=== PATIENT | male | born 1940 | race Caucasian/White ===

== ENCOUNTER 2016-07-23 19:06 | Emergency (ER) | payer OTHER ==
[~2016-07-23] VITALS: Ht 172.7 cm; Wt 77.3 kg
[~2016-07-23 19:06] MED LIST: FINA5TAB PO; TAMS0.4C59 PO
[2016-07-23 19:11] VITALS: TEMP 36.6; Ht 172.7 cm; Wt 77.3 kg
[2016-07-23] MEDS ORDERED: FLM4 PO (19:13)
[2016-07-23 20:06] LABS: URINE APPEARANCE CLEAR (CLEAR); URINE BILIRUBIN NEG (NEG); URINE COLOR YELLOW; URINE NITRITE NEG (NEG); UROBILINOGEN NEG (NEG); ZZUR CULT IF INDIC CLEAN CATCH NO
[2016-07-23 20:14] LABS: MANUAL MICROSCOPIC REQUIRED? NO; REVIEW REQ? NO
--- NOTE | 2016-07-23 20:34 | EMERGENCY ROOM VISIT NOTE ---
ED Visit Note First contact with patient: 19:25 This Patient was discussed with the physician Tensioning Machine Operator, Kennedy Sandoval PA-C. The pertinent historical and physical exam findings were confirmed. I agree with the studies ordered and with the interpretations of these studies. I agree with the disposition and care plan.
[2016-07-23 20:52] VITALS: BP 139/88; PULSE 74; O2SAT 96
[2016-07-23] MEDS ORDERED: LORA-741 PO (23:37)
--- NOTE | 2016-07-24 00:26 | EMERGENCY ROOM VISIT NOTE ---
History First contact with patient: 19:25 Chief Complaint: UNABLE TO VOID Stated Complaint: UNABLE TO VOID Nursing Triage Summary: Pt arrived to ER via BLS with complaints of trouble urinating since this AM. Pt reports he has not been able to void normally (steady stream) since this morning. Hx of prostate issues. Pt reports he has only been able to dribble occassionally throughout the day. History of Present Illness The patient is a 76 year old male who presents to the Emergency Room with complaints of inability to void normally. The patient reports that his was concerned and told him to come to the emergency department for further evaluation. He denies any discomfort while doing so. He does report a prior history of enlarged prostate. He does not know the name of his urologist. He has had no recent fevers or chills. He has not noticed any blood in the urine. 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 (10) Dyslipidemia (11) Generalized anxiety disorder (12) Generalized osteoarthritis (13) History of hemolytic anemia (14) History of TIA (transient ischemic attack) (15) Internal hemorrhoids (16) Myocardial infarction (17) Near syncope (18) Orthostasis (19) Polycythemia vera (20) Superficial vein thrombosis Surgical Problems: (1) H/O hernia repair (2) History of carpal tunnel surgery (3) Hx of cholecystectomy (4) S/P TURP Family History Cardiac arrest Heart disease Stroke Social History Smoking Status: Never Smoker Alcohol Use: none Drug Use: none Marital Status: Housing Status: lives with significant other Occupation Status: retired Current/Historical Medications Scheduled Finasteride (Proscar), 5 MG PO DAILY Tamsulosin HCl (Tamsulosin HCl), 0.4 MG PO DAILY Scheduled PRN Lorazepam (Ativan), 0.5 MG PO Q8 PRN for Anxiety Allergies Coded Allergies: Adhesives (Verified Allergy, Mild, PAPER TAPE-MARKED SKIN, 11/28/15) Dapsone (Verified Allergy, Unknown, methemoglobinemia, 11/28/15) Aspirin (Verified Adverse Reaction, Unknown, bleeding, 11/28/15) Warfarin (Verified Adverse Reaction, Unknown, bleeding, 11/28/15) Physical Exam Vital Signs Date Time Temp Pulse Resp B/P Pulse Ox O2 Delivery O2 Flow Rate FiO2 07/23/16 20:52 74 18 139/88 96 07/23/16 19:11 36.6 73 18 143/79 95 Room Air Pain Rating (0-10): 0 Physical Exam CONSTITUTIONAL: Healthy and well nourished. Alert and oriented X 3 with positive affect. Patient is not appear in any acute distress. HEENT: Normocephalic, atraumatic. Pupils equal, round and reactive. NECK: Full active range of motion without discomfort. RESPIRATORY: Clear to auscultation bilaterally with no wheezing, crackles, rhonchi or stridor. CARDIOVASCULAR: Regular rate and rhythm with no murmurs, rubs or gallops. GASTROINTESTINAL: Bowel sounds present in all quadrants. Soft and nontender to palpation. No distention noted over the suprapubic region. Negative CVA tenderness. MUSCULOSKELETAL: Full range of motion of all joints without discomfort. INTEGUMENTARY: No rash or other significant dermatologic conditions noted. NEUROLOGIC: No focal neurologic deficits noted. Medical Decision & Procedures ER Provider Diagnostic Interpretation: Bladder scan shows slightly better than 150 mL. The patient last urinated approximately 2 hours prior. Laboratory Results Test 07/23/16 19:49 Urine Color YELLOW Urine Appearance CLEAR (CLEAR) Urine pH 5.0 (4.5-7.5) Urine Specific [place] 1.020 (1.000-1.030) Urine Protein NEG (NEG) Urine Glucose (UA) NEG (NEG) Urine Ketones NEG (NEG) Urine Occult Blood NEG (NEG) Urine Nitrite NEG (NEG) Urine Bilirubin NEG (NEG) Urine Urobilinogen NEG (NEG) Urine Leukocyte Esterase NEG (NEG) Urinalysis is completely normal. ED Course Patient history and physical exam were performed. Nurse's notes were reviewed. The patient does not appear in any acute distress. Vital signs were also normal. The patient reports that he is here only because his made him come in. Bladder scan shows a volume of a little over 150 mL, with his last urination approximate 2 hours prior. The patient was asked to provide a urine sample. He was able to do so without any difficulty. His urinalysis was completely normal. The patient was encouraged to follow-up with his PCP or urologist with any further urinary problems. The patient was also seen and examined by Dr. Mast, DARYL at any physician, who agrees with workup and plan of care. The patient was also happy with plan of care, and voiced understanding of all discharge instructions. Impression Primary Impression: Urinary retention Additional Impression: BPH with obstruction/lower urinary tract symptoms Departure Information Dispostion Home / Self-Care Condition GOOD Forms HOME CARE DOCUMENTATION FORM, IMPORTANT VISIT INFORMATION Patient Instructions [facility] Additional Instructions Follow-up with your family doctor as needed for any further urinary symptoms. Return to the emergency department for any developing fever, vomiting or severe pain. Problem Qualifiers
== END 2016-07-23 20:53 | disposition home or self-care (01) ==
LOC: EDBD 19:06 → C.EDD 19:08
DX: R33.9 Retention of urine, unspecified (principal); N40.1 Benign prostatic hyperplasia with lower urinary tract symptoms; I48.91 Unspecified atrial fibrillation; J44.9 Chronic obstructive pulmonary disease, unspecified; Z86.73 Personal history of transient ischemic attack (TIA), and cerebral infarction without residual deficits; I25.2 Old myocardial infarction; Z90.49 Acquired absence of other specified parts of digestive tract

== ENCOUNTER 2016-07-31 10:53 | Emergency (ER) | payer OTHER ==
[~2016-07-31] VITALS: Ht 172.7 cm; Wt 91.0 kg
[~2016-07-31 10:53] MED LIST changes: +FLM4 PO; +LORA-741 PO; -TAMS0.4C59 PO
[2016-07-31 10:54] VITALS: TEMP 36.7; Ht 172.7 cm; Wt 91.0 kg
[2016-07-31] MEDS ORDERED: ONDANSETRON INJ 2 MG/ML 2 ML VIAL IV STA (12:09)
[2016-07-31] MEDS ORDERED: SODIUM CHLORIDE 0.9% 1000ML 1,000 ML IV STA (12:09)
[2016-07-31] MEDS ORDERED: HYDROmorphone INJ 1 MG/ML SYR IV STA (12:09)
--- NOTE | 2016-07-31 12:11 | EMERGENCY ROOM VISIT NOTE ---
History Report prepared by Bhupinder: James Rendon Under the Supervision of: Dr. Glory Whittaker M.D. First contact with patient: 12:05 Chief Complaint: ABDOMINAL PAIN Stated Complaint: EPIGASTRIC/ ABDOMINAL PAIN Nursing Triage Summary: Pt was laying on couch today and had a sudden onset of epigastric pain. Denies N/V/D. Does state, "It just feels like something needs to come up but it wont. " and points to chest. History of Present Illness The patient is a 76 year old male who presents to the Emergency Room with complaints of persistent abdominal pain beginning this morning. He notes also having a cough, chest pain, and shortness of breath. He denies having any nausea , vomiting, or diarrhea. Source of History: patient Onset: this morning Position: abdomen Quality: other (abdominal pain) Timing: other (persistent) Associated Symptoms: + SOB, + chest pain, + cough, No diarrhea, No nausea, No vomiting Review of Systems See HPI for pertinent positives & negatives. A total of 10 systems reviewed and were otherwise negative. 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 (4) Bullous pemphigoid (5) COPD (chronic obstructive pulmonary disease) (6) COPD, mild (7) Depression (8) Diarrhea (9) DJD (degenerative joint disease) of cervical spine (10) Dyslipidemia (11) Generalized anxiety disorder (12) Generalized osteoarthritis (13) History of hemolytic anemia (14) History of TIA (transient ischemic attack) (15) Internal hemorrhoids (16) Myocardial infarction (17) Near syncope (18) Orthostasis (19) Polycythemia vera (20) Superficial vein thrombosis Surgical Problems: (1) H/O hernia repair (2) History of carpal tunnel surgery (3) Hx of cholecystectomy (4) S/P TURP Family History Cardiac arrest Heart disease Stroke Social History Smoking Status: Never Smoker Alcohol Use: none Drug Use: none Marital Status: Housing Status: lives with significant other Occupation Status: retired Current/Historical Medications Scheduled Finasteride (Proscar), 5 MG PO DAILY Tamsulosin HCl (Tamsulosin HCl), 0.4 MG PO DAILY Scheduled PRN Lorazepam (Ativan), 0.5 MG PO Q8 PRN for Anxiety Allergies Coded Allergies: Adhesives (Verified Allergy, Mild, PAPER TAPE-MARKED SKIN, 07/31/16) Dapsone (Verified Allergy, Unknown, methemoglobinemia, 07/31/16) Aspirin (Verified Adverse Reaction, Unknown, bleeding, 07/31/16) Warfarin (Verified Adverse Reaction, Unknown, bleeding, 07/31/16) Physical Exam Vital Signs Date Time Temp Pulse Resp B/P Pulse Ox O2 Delivery O2 Flow Rate FiO2 07/31/16 16:48 95 18 118/83 97 07/31/16 16:09 84 18 119/74 95 Room Air 07/31/16 13:16 100 18 110/85 96 Room Air 07/31/16 11:01 104 07/31/16 10:54 36.7 100 20 133/81 94 Room Air Physical Exam CONSTITUTIONAL: Hearing impaired. Patient is in mild distress. HEENT: No icterus, moist mucous membranes NECK: No meningismus, trachea is midline. CARDIOVASCULAR: Regular rate, normal perfusion RESPIRATORY: Unlabored breathing. Clear to auscultation. GASTROINTESTINAL: Non-tender GENITOURINARY: No flank tenderness MUSCULOSKELETAL: Full range of motion NEUROLOGIC: No acute gross focal deficits. PSYCHIATRIC: Normal affect SKIN: Normal for ethnicity. Medical Decision & Procedures ER Provider Diagnostic Interpretation: Radiology results as stated below per my review and radiologist interpretation. CHEST 2 VIEWS ROUTINE FINDINGS: The heart is the upper limits of normal in size. There is no failure. There is no focal pulmonary consolidation. There are no pleural effusions. There is an old right-sided rib fracture. IMPRESSION: No active disease in the chest. Electronically signed by: Yannick Rodriguez M.D. 07/31/2016 12:42 PM Dictated Date/Time: 07/31/2016 12:41 PM Laboratory Results 07/31/16 10:30 Red Blood Count 7.66, Mean Corpuscular Volume 71.1, Mean Corpuscular Hemoglobin 22.8, Mean Corpuscular Hemoglobin Concent 32.1, Neutrophils (%) (Auto) 79.2, Lymphocytes (%) (Auto) 8.8, Monocytes (%) (Auto) 9.2, Eosinophils (%) (Auto) 1.6 , Basophils (%) (Auto) 0.8, Neutrophils # (Auto) 8.57, Lymphocytes # (Auto) 0.95 , Monocytes # (Auto) 1.00, Eosinophils # (Auto) 0.17, Basophils # (Auto) 0.09 07/31/16 10:30 Test 07/31/16 10:30 07/31/16 12:40 07/31/16 12:43 07/31/16 13:14 White Blood Count 10.82 K/uL (4.8-10.8) Red Blood Count 7.66 M/uL (4.7-6.1) Hemoglobin 17.5 g/dL (14.0-18.0) Hematocrit 54.5 % (42-52) Mean Corpuscular Volume 71.1 fL (80-100) Mean Corpuscular Hemoglobin 22.8 pg (25-34) Mean Corpuscular Hemoglobin Concent 32.1 g/dl (32-36) Platelet Count 258 K/uL (130-400) Neutrophils (%) (Auto) 79.2 % Lymphocytes (%) (Auto) 8.8 % Monocytes (%) (Auto) 9.2 % Eosinophils (%) (Auto) 1.6 % Basophils (%) (Auto) 0.8 % Neutrophils # (Auto) 8.57 K/uL (1.4-6.5) Lymphocytes # (Auto) 0.95 K/uL (1.2-3.4) Monocytes # (Auto) 1.00 K/uL (0.11-0.59) Eosinophils # (Auto) 0.17 K/uL (0-0.5) Basophils # (Auto) 0.09 K/uL (0-0.2) RDW Standard Deviation 47.9 fL (36.4-46.3) RDW Coefficient of Variation 19.6 % (11.5-14.5) Immature Granulocyte % (Auto) 0.4 % Immature Granulocyte # (Auto) 0.04 K/uL (0.00-0.02) Anion Gap 10.0 mmol/L (3-11) Est Creatinine Clear Calc Drug Dose 52.1 ml/min Estimated GFR () 61.0 Estimated GFR (Non- 52.6 BUN/Creatinine Ratio 12.0 (10-20) Calcium Level 8.8 mg/dl (8.5-10.1) Total Bilirubin 0.7 mg/dl (0.2-1) Direct Bilirubin 0.2 mg/dl (0-0.2) Aspartate Amino Transf (AST/SGOT) 18 U/L (15-37) Alanine Aminotransferase (ALT/SGPT) 25 U/L (12-78) Alkaline Phosphatase 75 U/L (45-117) Troponin I < 0.015 ng/ml (0-0.045) Total Protein 7.2 gm/dl (6.4-8.2) Albumin 3.7 gm/dl (3.4-5.0) Lipase 160 U/L (73-393) Thyroid Stimulating Hormone (TSH) 1.580 uIu/ml (0.300-4.500) Chemistry Specimen Hemolysis Ethyl Alcohol mg/dL < 3.0 mg/dl (0-3) Bedside Lactic Acid Venous 0.83 mmol/L (0.90-1.70) Urine Color YELLOW Urine Appearance CLEAR (CLEAR) Urine pH 5.0 (4.5-7.5) Urine Specific [place] 1.018 (1.000-1.030) Urine Protein NEG (NEG) Urine Glucose (UA) NEG (NEG) Urine Ketones NEG (NEG) Urine Occult Blood TRACE (NEG) Urine Nitrite NEG (NEG) Urine Bilirubin NEG (NEG) Urine Urobilinogen NEG (NEG) Urine Leukocyte Esterase NEG (NEG) Urine WBC (Auto) 1-5 /hpf (0-5) Urine RBC (Auto) 0-4 /hpf (0-4) Urine Hyaline Casts (Auto) 1-5 /lpf (0-5) Urine Epithelial Cells (Auto) 5-10 /lpf (0-5) Urine Bacteria (Auto) NEG (NEG) Urine Opiates Screen NEG (NEG) Urine Methadone, Qualitative NEG (NEG) Urine Barbiturates NEG (NEG) Urine Phencyclidine (PCP) Level NEG (NEG) Ur Amphetamine/Methamphetamine NEG (NEG) MDMA (Ecstasy) Screen NEG (NEG) Urine Benzodiazepines Screen NEG (NEG) Urine Cocaine Metabolite NEG (NEG) Urine Marijuana (THC) NEG (NEG) Labs reviewed by ED physician. Medications Administered Medications (Trade) Dose Ordered Sig/Linette Route Start Time Stop Time Status Last Admin Dose Admin Ondansetron HCl 4 mg 4 mg NOW STAT IV 07/31/16 12:09 07/31/16 12:11 DC 07/31/16 13:11 4 MG Sodium Chloride (Nss 1000ml) 1,000 ml @ 0 mls/hr Q0M STAT IV 07/31/16 12:09 07/31/16 12:11 DC 07/31/16 13:12 999 MLS/HR Hydromorphone HCl (Dilaudid Inj) 1 mg PRN STAT IV 07/31/16 12:09 07/31/16 12:11 DC 07/31/16 13:11 1 MG ECG Indication: abdominal pain Rate (beats per minute): 90 Rhythm: atrial fibrillation Findings: nonspecific-ST abn, other (normal ) ED Course 1208: Past medical records reviewed. The patient was evaluated in room C2B. A complete history and physical examination was performed. 1209: Ordered Dilaudid Inj 1 mg IV, NSS 1,000 ml @ 0 mls/hr Wide Open IV, and Zofran Inj 4 mg IV. Medical Decision Differentials include pneumonia, diverticulitis, and obstruction. 76-year-old who is hearing impaired presented to the emergency department with 1 day of vague abdominal pain as well as cough. Mildly diffuse abdomen. Patient appeared generally well and no emergencies were identified during the ED course. Impression Primary Impression: Abdominal pain Scribe Attestation The scribe's documentation has been prepared under my direction and personally reviewed by me in its entirety. I confirm that the note above accurately reflects all work, treatment, procedures, and medical decision making performed by me. Departure Information Dispostion Home / Self-Care Referrals Ajith Herman D.O. (PCP) Patient Instructions My [facility]
[2016-07-31] MEDS ORDERED: OPTIRAY 320 IV PRN (12:15)
[2016-07-31 12:21] LABS: BASO % 0.8 %; BASO ABS # 0.09 K/uL (0-0.2); COMPLETE YES; EOS % 1.6 %; HEMATOCRIT 54.5 % (42-52); IG% 0.4 %; LYMPH % 8.8 %; LYMPH ABS # 0.95 K/uL (1.2-3.4); MEAN CELL VOLUME 71.1 fL (80-100); MEAN CORPUSCULAR HEMOGLOBIN 22.8 pg (25-34); MEAN CORPUSCULAR HGB CONC 32.1 g/dl (32-36); MONO % 9.2 %; NEUT % 79.2 %; PLATELET COUNT 258 K/uL (130-400); RED BLOOD COUNT 7.66 M/uL (4.7-6.1); WHITE BLOOD COUNT 10.82 K/uL (4.8-10.8)
[2016-07-31 12:34] LABS: ALT/SGPT 25 U/L (12-78); AST/SGOT 18 U/L (15-37); BLOOD UREA NITROGEN 16 mg/dl (7-18); CALCIUM 8.8 mg/dl (8.5-10.1); CARBON DIOXIDE 24 mmol/L (21-32); CHLORIDE 108 mmol/L (98-107); GLUCOSE 99 mg/dl (70-99); POTASSIUM 3.9 mmol/L (3.5-5.1); SODIUM 142 mmol/L (136-145)
--- NOTE | 2016-07-31 12:43 | DIAGNOSTIC IMAGING REPORT ---
CHEST 2 VIEWS ROUTINE CLINICAL HISTORY: Cough abdominal pain COMPARISON STUDY: 06/17/2016 FINDINGS: The heart is the upper limits of normal in size. There is no failure. There is no focal pulmonary consolidation. There are no pleural effusions. There is an old right-sided rib fracture.[ IMPRESSION: No active disease in the chest. Electronically signed by: Yannick Rodriguez M.D. 07/31/2016 12:42 PM Dictated Date/Time: 07/31/2016 12:41 PM
[2016-07-31 12:46] LABS: ALKALINE PHOSPHATASE 75 U/L (45-117)
[2016-07-31 13:45] LABS: URINE APPEARANCE CLEAR (CLEAR); URINE BILIRUBIN NEG (NEG); URINE COLOR YELLOW; URINE NITRITE NEG (NEG); URINE SPECIFIC GRAVITY 1.018 (1.000-1.030); UROBILINOGEN NEG (NEG); ZZUR CULT IF INDIC CLEAN CATCH NO
[2016-07-31 13:49] LABS: MANUAL MICROSCOPIC REQUIRED? NO; REVIEW REQ? NO
[2016-07-31 14:28] LABS: BENZODIAZEPINE, URINE NEG (NEG); COCAINE,URINE NEG (NEG); PHENCYCLIDINE, URINE NEG (NEG)
--- NOTE | 2016-07-31 15:14 | DIAGNOSTIC IMAGING REPORT ---
CT ABD/PELVIS IV AND ORAL CONT CLINICAL HISTORY: Generalized abdominal pain COMPARISON STUDY: 10/03/2015 TECHNIQUE: Following the IV administration of 94 mL of Optiray-320, CT scan of the abdomen and pelvis was performed from the lung bases to the proximal femurs. Images are reviewed in the axial, sagittal, and coronal planes. IV contrast was administered without complication. CT DOSE: 952.20 mGycm FINDINGS: Lower chest: There are bibasal atelectatic changes present. There is borderline distal esophageal wall thickening unchanged the prior study. Liver: There is a stable 8 mm hypodensity immediately beneath the hepatic dome. There is a stable 11 mm cyst within the lateral segment left hepatic lobe. There is a 9 mm subcapsular hypodensity within the medial segment the left lobe. There are a few additional tiny to small to characterize hepatic hypodensities likely representing cysts. Gallbladder: Surgically absent Spleen: Normal in size and attenuation. Pancreas: Unremarkable. Adrenal glands: Unremarkable. Kidneys: There is a stable 11 mm upper pole left renal cyst. There is a stable 15 mm hypodensity within the lower pole the left kidney. This slightly exceeds water attenuation and is therefore indeterminate. Bowel: There are no transition zones indicate bowel obstruction. There is no evidence of acute diverticulitis. There are scattered colonic diverticula present. The appendix is normal in appearance. Peritoneum: There is no intraperitoneal free air or abdominal ascites. Vasculature: The abdominal aorta is normal in course and caliber. Adenopathy: None. Pelvic viscera: The prostate remains significantly enlarged measuring 7 cm in AP dimension. Skeletal structures: No destructive osseous lesions are seen. IMPRESSION: 1. Stable hepatic hypodensities likely representing cysts 2. Stable indeterminate 15 mm lower pole left renal hypodensity 3. No evidence of bowel obstruction. No evidence of free air 4. Normal appendix 5. Diverticulosis. No evidence of acute diverticulitis 6. Prostatic enlargement 7. Stable distal esophageal wall thickening Electronically signed by: Yannick Rodriguez M.D. 07/31/2016 3:13 PM Dictated Date/Time: 07/31/2016 3:07 PM
[2016-07-31 16:48] VITALS: BP 118/83; PULSE 95; O2SAT 97
== END 2016-07-31 16:49 | disposition home or self-care (01) ==
LOC: EDBD 10:53 → C.EDC 10:54
DX: R10.9 Unspecified abdominal pain (principal); I48.91 Unspecified atrial fibrillation; J44.9 Chronic obstructive pulmonary disease, unspecified; F32.9 Major depressive disorder, single episode, unspecified; E78.5 Hyperlipidemia, unspecified; Z86.73 Personal history of transient ischemic attack (TIA), and cerebral infarction without residual deficits; I25.2 Old myocardial infarction; Z90.49 Acquired absence of other specified parts of digestive tract

== ENCOUNTER 2016-08-10 19:06 | Emergency (ER) | payer OTHER ==
[~2016-08-10] VITALS: Ht 172.7 cm; Wt 87.9 kg
[2016-08-10 19:18] VITALS: TEMP 36.7; Ht 172.7 cm; Wt 87.9 kg
[2016-08-10] MEDS ORDERED: ONDANSETRON INJ 2 MG/ML 2 ML VIAL IV STA (19:29)
[2016-08-10] MEDS ORDERED: HYOSCYAMINE SULFATE 0.125 MG SL TAB SL STA (19:29)
[2016-08-10 19:36] LABS: BASO % 0.6 %; BASO ABS # 0.06 K/uL (0-0.2); EOS % 1.1 %; HEMATOCRIT 54.1 % (42-52); IG% 0.3 %; LYMPH % 15.7 %; MEAN CELL VOLUME 68.9 fL (80-100); MEAN CORPUSCULAR HEMOGLOBIN 22.7 pg (25-34); MEAN CORPUSCULAR HGB CONC 32.9 g/dl (32-36); MONO % 7.7 %; NEUT % 74.6 %; PLATELET COUNT 250 K/uL (130-400); RED BLOOD COUNT 7.85 M/uL (4.7-6.1); WHITE BLOOD COUNT 10.84 K/uL (4.8-10.8)
[2016-08-10] MEDS ORDERED: OPTIRAY 320 IV PRN (19:45)
[2016-08-10 19:56] LABS: BUN/CREATININE RATIO 18.6 (10-20); CALCIUM 9.2 mg/dl (8.5-10.1); CREATININE 1.3 mg/dl (0.60-1.40); POTASSIUM 4.3 mmol/L (3.5-5.1)
[2016-08-10] MEDS ORDERED: SODIUM CHLORIDE 0.9% 250ML 250 ML IV STA (20:04)
[2016-08-10] MEDS ORDERED: DOXY100C2 PO (20:46)
[2016-08-10 21:27] LABS: COMPLETE YES; MICROCYTOSIS PRESENT; OVALOCYTES 1+; POLYCHROMASIA 1+
--- NOTE | 2016-08-10 22:33 | DIAGNOSTIC IMAGING REPORT ---
ABDOMEN AND PELVIS CT WITH IV AND ORAL CONTRAST CT DOSE: 613.89 mGy.cm HISTORY: Pain eval for kristie/ lower abd pain TECHNIQUE: Multiaxial CT images of the abdomen and pelvis were performed following the use of intravenous and oral contrast. COMPARISON STUDY: 07/31/2016 FINDINGS: Lung bases are clear. Mild distal esophageal wall thickening unchanged. Several small hepatic cysts unchanged. Upper pole left renal cyst unchanged. No evidence for renal hydronephrosis. Spleen is uniform in appearance as is the pancreas. Prior cholecystectomy. Normal appendix. Nonobstructive bowel pattern. Mildly thickened sigmoid colonic wall raise the possibly of a low-grade colitis. No evidence for significant pericolonic infiltrative change. No evidence for abscess collection or obstruction. Bladder is midline. Prostate is enlarged. IMPRESSION: 1. Nonobstructive bowel pattern. 2. Normal appendix. 3. Subtle wall thickening of the sigmoid colon raising the possibility of a mild colitis. 4. No evidence for abscess collection or obstruction. 5. Prostatic enlargement. 6. Unchanged small hepatic as well as renal cysts. Electronically signed by: Boom Verduzco M.D. 08/10/2016 10:32 PM Dictated Date/Time: 08/10/2016 10:25 PM
[2016-08-10] MEDS ORDERED: CIPR-255 PO (22:38)
[2016-08-10] MEDS ORDERED: METR-163 PO (22:38)
[2016-08-10] MEDS ORDERED: CIPROFLOXACIN 500 MG TAB PO STA (22:40)
[2016-08-10] MEDS ORDERED: METRONIDAZOLE 250 MG TAB PO STA (22:40)
[2016-08-10 22:48] VITALS: BP 153/94; PULSE 84; O2SAT 95
--- NOTE | 2016-08-11 01:55 | EMERGENCY ROOM VISIT NOTE ---
History Report prepared by Bhupinder: Kate Mcdaniels Under the Supervision of: Dr. Eduard Wilkerson M.D. First contact with patient: 19:21 Chief Complaint: ABDOMINAL PAIN Stated Complaint: ABD PAIN History of Present Illness The patient is a 76 year old male who presents to the Emergency Room with complaints of constant sharp lower abdominal pain beginning this morning. The patient states that he ate a cake that didn't taste right and starting feeling the abdominal pain shortly after. He reports that this abdominal pain is different than the pain he had when he was seen here in the ED 10 days ago, although he cannot remember exactly. He complains of 1 episode of diarrhea which was very watery. The patient denies any fever, vomiting, blood in the diarrhea, urinary symptoms, chest pain, or shortness of breath. Source of History: patient Onset: today Position: abdomen Quality: sharp Timing: constant Associated Symptoms: + diarrhea, No SOB, No chest pain, No fevers, No urinary symptoms, No vomiting Note: The patient denies any blood in the diarrhea. Review of Systems See HPI for pertinent positives & negatives. A total of 10 systems reviewed and were otherwise negative. 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 (4) Bullous pemphigoid (5) COPD (chronic obstructive pulmonary disease) (6) COPD, mild (7) Depression (8) Diarrhea (9) DJD (degenerative joint disease) of cervical spine (10) Dyslipidemia (11) Generalized anxiety disorder (12) Generalized osteoarthritis (13) History of hemolytic anemia (14) History of TIA (transient ischemic attack) (15) Internal hemorrhoids (16) Myocardial infarction (17) Near syncope (18) Orthostasis (19) Polycythemia vera (20) Superficial vein thrombosis Surgical Problems: (1) H/O hernia repair (2) History of carpal tunnel surgery (3) Hx of cholecystectomy (4) S/P TURP Family History Cardiac arrest Heart disease Stroke Social History Smoking Status: Never Smoker Alcohol Use: none Drug Use: none Marital Status: Housing Status: lives with significant other Occupation Status: retired Current/Historical Medications Scheduled Ciprofloxacin Hcl (Cipro), 500 MG PO BID Doxycycline Hyclate (Vibramycin), 100 MG PO BID Finasteride (Proscar), 5 MG PO DAILY Metronidazole (Flagyl), 500 MG PO TID Tamsulosin HCl (Tamsulosin HCl), 0.4 MG PO DAILY Scheduled PRN Lorazepam (Ativan), 0.5 MG PO Q8 PRN for Anxiety Allergies Coded Allergies: Adhesives (Verified Allergy, Mild, PAPER TAPE-MARKED SKIN, 08/10/16) Dapsone (Verified Allergy, Unknown, methemoglobinemia, 08/10/16) Aspirin (Verified Adverse Reaction, Unknown, bleeding, 08/10/16) Warfarin (Verified Adverse Reaction, Unknown, bleeding, 08/10/16) Physical Exam Vital Signs Date Time Temp Pulse Resp B/P Pulse Ox O2 Delivery O2 Flow Rate FiO2 08/10/16 22:48 84 18 153/94 95 08/10/16 21:48 75 18 150/90 94 Room Air 08/10/16 20:30 74 18 154/71 96 Room Air 08/10/16 19:18 77 08/10/16 19:18 36.7 81 18 140/111 94 Room Air Physical Exam Constitutional: Vital signs reviewed. Eyes: Pupils are equal round reactive to light. Conjunctiva are noninjected. ENT: Pharynx is clear without erythema or exudate. Mucous membranes are moist. Neck supple without meningeal signs. Respiratory: Clear to auscultation bilaterally. Breath sounds are equal bilaterally. Cardiovascular: Regular rate and rhythm. No rubs or gallops. GI: Soft, nondistended. Bowel sounds are present. Lower abdominal tenderness, no guarding. Musculoskeletal: No peripheral edema. No lower extremity tenderness. No CVA tenderness. Integumentary: No cyanosis. Neurological: The patient is awake and alert. No focal deficits. Psychiatric: Normal affect. Medical Decision & Procedures ER Provider Diagnostic Interpretation: CT results as stated below per my review and the radiologist's interpretation: ABDOMEN AND PELVIS CT WITH IV AND ORAL CONTRAST FINDINGS: Lung bases are clear. Mild distal esophageal wall thickening unchanged. Several small hepatic cysts unchanged. Upper pole left renal cyst unchanged. No evidence for renal hydronephrosis. Spleen is uniform in appearance as is the pancreas. Prior cholecystectomy. Normal appendix. Nonobstructive bowel pattern. Mildly thickened sigmoid colonic wall raise the possibly of a low-grade colitis. No evidence for significant pericolonic infiltrative change. No evidence for abscess collection or obstruction. Bladder is midline. Prostate is enlarged. IMPRESSION: 1. Nonobstructive bowel pattern. 2. Normal appendix. 3. Subtle wall thickening of the sigmoid colon raising the possibility of a mild colitis. 4. No evidence for abscess collection or obstruction. 5. Prostatic enlargement. 6. Unchanged small hepatic as well as renal cysts. Electronically signed by: Boom Verduzco M.D. 08/10/2016 10:32 PM Dictated Date/Time: 08/10/2016 10:25 PM Laboratory Results 08/10/16 19:25 Red Blood Count 7.85, Mean Corpuscular Volume 68.9, Mean Corpuscular Hemoglobin 22.7, Mean Corpuscular Hemoglobin Concent 32.9, Neutrophils (%) (Auto) 74.6, Lymphocytes (%) (Auto) 15.7, Monocytes (%) (Auto) 7.7, Eosinophils (%) (Auto) 1.1, Basophils (%) (Auto) 0.6, Neutrophils # (Auto) 8.10, Lymphocytes # (Auto) 1.70, Monocytes # (Auto) 0.83, Eosinophils # (Auto) 0.12, Basophils # (Auto) 0.06 08/10/16 19:25 Test 08/10/16 19:25 08/10/16 19:53 White Blood Count 10.84 K/uL (4.8-10.8) Red Blood Count 7.85 M/uL (4.7-6.1) Hemoglobin 17.8 g/dL (14.0-18.0) Hematocrit 54.1 % (42-52) Mean Corpuscular Volume 68.9 fL (80-100) Mean Corpuscular Hemoglobin 22.7 pg (25-34) Mean Corpuscular Hemoglobin Concent 32.9 g/dl (32-36) Platelet Count 250 K/uL (130-400) Neutrophils (%) (Auto) 74.6 % Lymphocytes (%) (Auto) 15.7 % Monocytes (%) (Auto) 7.7 % Eosinophils (%) (Auto) 1.1 % Basophils (%) (Auto) 0.6 % Neutrophils # (Auto) 8.10 K/uL (1.4-6.5) Lymphocytes # (Auto) 1.70 K/uL (1.2-3.4) Monocytes # (Auto) 0.83 K/uL (0.11-0.59) Eosinophils # (Auto) 0.12 K/uL (0-0.5) Basophils # (Auto) 0.06 K/uL (0-0.2) RDW Standard Deviation 45.7 fL (36.4-46.3) RDW Coefficient of Variation 18.9 % (11.5-14.5) Immature Granulocyte % (Auto) 0.3 % Immature Granulocyte # (Auto) 0.03 K/uL (0.00-0.02) Polychromasia 1+ Microcytosis PRESENT Ovalocytes 1+ Anion Gap 12.0 mmol/L (3-11) Est Creatinine Clear Calc Drug Dose 51.3 ml/min Estimated GFR () 61.0 Estimated GFR (Non- 52.6 BUN/Creatinine Ratio 18.6 (10-20) Calcium Level 9.2 mg/dl (8.5-10.1) Total Bilirubin 1.0 mg/dl (0.2-1) Direct Bilirubin 0.2 mg/dl (0-0.2) Aspartate Amino Transf (AST/SGOT) 21 U/L (15-37) Alanine Aminotransferase (ALT/SGPT) 27 U/L (12-78) Alkaline Phosphatase 62 U/L (45-117) Total Protein 7.6 gm/dl (6.4-8.2) Albumin 4.0 gm/dl (3.4-5.0) Lipase 156 U/L (73-393) Lactic Acid Level 0.8 mmol/L (0.4-2.0) Laboratory results as reviewed by me. Medications Administered Medications (Trade) Dose Ordered Sig/Lintete Route Start Time Stop Time Status Last Admin Dose Admin Ondansetron HCl (Zofran Inj) 4 mg NOW STAT IV 08/10/16 19:29 08/10/16 19:31 DC 08/10/16 19:40 4 MG Hyoscyamine Sulfate 0.125 mg 0.125 mg NOW STAT SL 08/10/16 19:29 08/10/16 19:31 DC 08/10/16 19:40 0.125 MG Sodium Chloride (Nss 250ml) 250 ml @ 999 mls/hr Q16M STAT IV 08/10/16 20:04 08/10/16 20:19 DC 08/10/16 21:46 999 MLS/HR Metronidazole (Flagyl Tab) 500 mg NOW STAT PO 08/10/16 22:40 08/10/16 22:41 DC 08/10/16 22:44 500 MG Ciprofloxacin (Cipro Tab) 500 mg NOW STAT PO 08/10/16 22:40 08/10/16 22:41 DC 08/10/16 22:44 500 MG ED Course 1923: The patient was evaluated in room C11B. A complete history and physical exam was performed. 1928: Levsin Tab 0.125mg SL, Zofran Inj 4mg IV. 2003: Sodium Chloride 250 ml @ 999 mls/hr IV. 2204: I reevaluated the patient. He has had several episodes of diarrhea here. He just soiled his pants. He would not go to CT scan and will not answer any of my questions. 2233: I discussed the test results with the patient. 2239: Cipro Tab 500mg PO, Flagyl Tab 500mg PO. 2306: Upon reevaluation, the patient appeared to have improvement of his symptoms. I discussed tonight's findings with the patient. He verbalized agreement of the treatment plan. The patient was discharged home. Medical Decision This is a 76-year-old male who presents with lower abdominal pain and diarrhea. Differential diagnosis in this foodborne illness, C. difficile infection, colitis, diverticulitis, appendicitis, dehydration. I did perform a limited focused review of portions of the patient's old chart on the electronic medical record. The patient was seen here 10 days ago for epigastric abdominal pain. He had a workup here and was diagnosed with abdominal pain. He had a CT of the abdomen and pelvis which showed no acute process. I did evaluate the patient as noted above. He has mild diffuse tenderness to lower abdomen and started having diarrhea today. He does state that he thinks he ate something that made him sick. Throughout his emergency department stay he did have several episodes of diarrhea. He was, however, unable to give us a stool sample to check for C. difficile. IV access was established. He was treated with Zofran IV and Levsin. I did order and review the patient's blood work as noted in the electronic medical record. His white blood cell count is slightly elevated. I did order a CT of the abdomen and pelvis. I did review the images myself as well as the radiology report as described above. He does have signs of mild colitis. I did discuss the test results with the patient. He was treated with Cipro and Flagyl and discharged with a prescription for Cipro and Flagyl. He was advised to follow closely with his doctor for reevaluation. He was given precautions regarding these medications. Impression Primary Impression: Colitis Scribe Attestation The scribe's documentation has been prepared under my direct and personally reviewed by me in its entirety. I confirm that the note above accurately reflects all work, treatment, procedures, and medical decision making performed by me. Departure Information Dispostion Home / Self-Care Prescriptions Metronidazole (Flagyl) 500 Mg Tab 500 MG PO TID for 10 Days, #30 TAB Prov: Eduard Wilkerson M.D. 08/10/16 Ciprofloxacin Hcl (CIPRO) 500 Mg Tab 500 MG PO BID, #20 TAB Prov: Eduard Wilkerson M.D. 08/10/16 Referrals Ajith Herman D.O. (PCP) Forms HOME CARE DOCUMENTATION FORM, IMPORTANT VISIT INFORMATION Patient Instructions My [facility] Additional Instructions You have been examined and treated today on an emergency basis only. This is not a substitute for, or an effort to provide, complete comprehensive medical care. It is impossible to recognize and treat all injuries or illnesses in a single emergency department visit. It is therefore important that you follow up closely with your physician. Call as soon as possible for an appointment. Return for worsening symptoms or if you develop fever, vomiting, or any other concerning symptoms. Do not drink alcohol with the antibiotics or you will become violently ill.
== END 2016-08-10 22:48 | disposition home or self-care (01) ==
LOC: EDBD 19:06 → C.EDC 19:08
DX: K52.9 Noninfective gastroenteritis and colitis, unspecified (principal); I48.91 Unspecified atrial fibrillation; J44.9 Chronic obstructive pulmonary disease, unspecified; F32.9 Major depressive disorder, single episode, unspecified; E78.5 Hyperlipidemia, unspecified; F41.1 Generalized anxiety disorder; M19.90 Unspecified osteoarthritis, unspecified site; Z86.73 Personal history of transient ischemic attack (TIA), and cerebral infarction without residual deficits; I25.2 Old myocardial infarction; D45 Polycythemia vera; Z90.49 Acquired absence of other specified parts of digestive tract; Z82.3 Family history of stroke; Z79.899 Other long term (current) drug therapy

== ENCOUNTER 2016-08-11 17:55 | Emergency (ER) | payer OTHER ==
[~2016-08-11] VITALS: Ht 172.7 cm; Wt 89.3 kg
[~2016-08-11 17:55] MED LIST changes: +CIPR-255 PO; +DOXY100C2 PO; +METR-163 PO
[2016-08-11 18:01] VITALS: TEMP 36.7; Ht 172.7 cm; Wt 89.3 kg
[2016-08-11] MEDS ORDERED: KETOROLAC TROMETHAMINE 30 MG/ML VIAL IV STA (18:26)
[2016-08-11] MEDS ORDERED: ONDANSETRON INJ 2 MG/ML 2 ML VIAL IV STA (18:26)
[2016-08-11] MEDS ORDERED: MoRPHine SULFATE 4 MG/ML 1 ML CARP\\VIAL IV PRN (18:30)
--- NOTE | 2016-08-11 18:31 | EMERGENCY ROOM VISIT NOTE ---
History Report prepared by Bhupinder: Brad Miranda Under the Supervision of: Dr. Glory Whittaker M.D. First contact with patient: 18:19 Chief Complaint: ABDOMINAL PAIN Stated Complaint: ABD PAIN History of Present Illness The patient is a 76 year old male who presents to the Emergency Room with complaints of constant abdominal pain beginning several hours prior to arrival. He currently rates his discomfort as an 8/10 in severity. The patient associates diarrhea and decreased appetite with today's symptoms. He states he may have had surgery for an abdominal hernia in the past. Source of History: patient Onset: several hours [employer] Position: abdomen Symptom Intensity: 8/10 Timing: constant Associated Symptoms: + abdominal pain, + diarrhea Note: Associated symptoms: decreased appetite. Review of Systems See HPI for pertinent positives & negatives. A total of 10 systems reviewed and were otherwise negative. 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 (4) Bullous pemphigoid (5) COPD (chronic obstructive pulmonary disease) (6) COPD, mild (7) Depression (8) Diarrhea (9) DJD (degenerative joint disease) of cervical spine (10) Dyslipidemia (11) Generalized anxiety disorder (12) Generalized osteoarthritis (13) History of hemolytic anemia (14) History of TIA (transient ischemic attack) (15) Internal hemorrhoids (16) Myocardial infarction (17) Near syncope (18) Orthostasis (19) Polycythemia vera (20) Superficial vein thrombosis Surgical Problems: (1) H/O hernia repair (2) History of carpal tunnel surgery (3) Hx of cholecystectomy (4) S/P TURP Family History Cardiac arrest Heart disease Stroke Social History Smoking Status: Never Smoker Alcohol Use: none Drug Use: none Marital Status: Housing Status: lives with significant other Occupation Status: retired Current/Historical Medications Scheduled Ciprofloxacin Hcl (Cipro), 500 MG PO BID Doxycycline Hyclate (Vibramycin), 100 MG PO BID Finasteride (Proscar), 5 MG PO DAILY Metronidazole (Flagyl), 500 MG PO TID Tamsulosin HCl (Tamsulosin HCl), 0.4 MG PO DAILY Scheduled PRN Lorazepam (Ativan), 0.5 MG PO Q8 PRN for Anxiety Allergies Coded Allergies: Adhesives (Verified Allergy, Mild, PAPER TAPE-MARKED SKIN, 08/11/16) Dapsone (Verified Allergy, Unknown, methemoglobinemia, 08/11/16) Aspirin (Verified Adverse Reaction, Unknown, bleeding, 08/11/16) Warfarin (Verified Adverse Reaction, Unknown, bleeding, 08/11/16) Physical Exam Vital Signs Date Time Temp Pulse Resp B/P Pulse Ox O2 Delivery O2 Flow Rate FiO2 08/11/16 20:16 83 20 116/66 96 Room Air 08/11/16 18:01 36.7 82 18 153/94 94 Room Air Physical Exam CONSTITUTIONAL: Mild distress. HEENT: No icterus, moist mucous membranes NECK: No meningismus, trachea is midline. CARDIOVASCULAR: Regular rate, normal perfusion RESPIRATORY: Unlabored breathing. Clear to auscultation. GASTROINTESTINAL: Mild diffuse abdominal tenderness. GENITOURINARY: No flank tenderness MUSCULOSKELETAL: Full range of motion NEUROLOGIC: No acute gross focal deficits. PSYCHIATRIC: Normal affect SKIN: Normal for ethnicity. Medical Decision & Procedures ER Provider Diagnostic Interpretation: Radiology results as stated below per my review and radiologist interpretation. CHEST ONE VIEW PORTABLE HISTORY: Generalized abdominal pain. COMPARISON: Chest 07/31/2016. FINDINGS: Low lung volumes. Linear density left lung base persist and favor subsegmental atelectasis. The heart remains mildly enlarged. No pleural effusions. No pneumothorax. No new focal lung consolidations to suggest pneumonia. No evidence for pulmonary edema. Old, healed right-sided rib fractures. Slight elevation of the left hemidiaphragm which may be positional. IMPRESSION: No significant change compared to the prior study. No acute process. Electronically signed by: Dipesh Milner M.D. 08/11/2016 7:22 PM Laboratory Results 08/11/16 18:35 Red Blood Count 7.67, Mean Corpuscular Volume 70.9, Mean Corpuscular Hemoglobin 23.2, Mean Corpuscular Hemoglobin Concent 32.7, Neutrophils (%) (Auto) 78.5, Lymphocytes (%) (Auto) 11.2, Monocytes (%) (Auto) 8.7, Eosinophils (%) (Auto) 0.9, Basophils (%) (Auto) 0.4, Neutrophils # (Auto) 8.80, Lymphocytes # (Auto) 1.26, Monocytes # (Auto) 0.97, Eosinophils # (Auto) 0.10, Basophils # (Auto) 0.05 2/18/17 18:35 Test 08/11/16 18:35 White Blood Count 11.21 K/uL (4.8-10.8) Red Blood Count 7.67 M/uL (4.7-6.1) Hemoglobin 17.8 g/dL (14.0-18.0) Hematocrit 54.4 % (42-52) Mean Corpuscular Volume 70.9 fL (80-100) Mean Corpuscular Hemoglobin 23.2 pg (25-34) Mean Corpuscular Hemoglobin Concent 32.7 g/dl (32-36) Platelet Count 251 K/uL (130-400) Neutrophils (%) (Auto) 78.5 % Lymphocytes (%) (Auto) 11.2 % Monocytes (%) (Auto) 8.7 % Eosinophils (%) (Auto) 0.9 % Basophils (%) (Auto) 0.4 % Neutrophils # (Auto) 8.80 K/uL (1.4-6.5) Lymphocytes # (Auto) 1.26 K/uL (1.2-3.4) Monocytes # (Auto) 0.97 K/uL (0.11-0.59) Eosinophils # (Auto) 0.10 K/uL (0-0.5) Basophils # (Auto) 0.05 K/uL (0-0.2) RDW Standard Deviation 47.7 fL (36.4-46.3) RDW Coefficient of Variation 19.3 % (11.5-14.5) Immature Granulocyte % (Auto) 0.3 % Immature Granulocyte # (Auto) 0.03 K/uL (0.00-0.02) Anion Gap 12.0 mmol/L (3-11) Est Creatinine Clear Calc Drug Dose 48.0 ml/min Estimated GFR () 55.8 Estimated GFR (Non- 48.1 BUN/Creatinine Ratio 14.2 (10-20) Bedside Lactic Acid Venous 0.85 mmol/L (0.90-1.70) Calcium Level 8.8 mg/dl (8.5-10.1) Total Bilirubin 1.1 mg/dl (0.2-1) Direct Bilirubin 0.3 mg/dl (0-0.2) Aspartate Amino Transf (AST/SGOT) 21 U/L (15-37) Alanine Aminotransferase (ALT/SGPT) 24 U/L (12-78) Alkaline Phosphatase 60 U/L (45-117) Total Protein 7.1 gm/dl (6.4-8.2) Albumin 3.7 gm/dl (3.4-5.0) Lipase 115 U/L (73-393) Labs reviewed by ED physician. Medications Administered Medications (Trade) Dose Ordered Sig/Linette Route Start Time Stop Time Status Last Admin Dose Admin Ketorolac Tromethamine (Toradol Inj) 15 mg NOW STAT IV 08/11/16 18:26 08/11/16 18:28 DC 08/11/16 18:47 15 MG Ondansetron HCl (Zofran Inj) 4 mg NOW STAT IV 08/11/16 18:26 08/11/16 18:28 DC 08/11/16 18:47 4 MG Morphine Sulfate (MoRPHine SULFATE INJ) 4 mg ONE PRN IV 08/11/16 18:30 3 18:29 08/11/16 18:48 4 MG ECG Indication: abdominal pain Rate (beats per minute): 78 Rhythm: normal sinus Findings: no ectopy, other (normal axis) ED Course 1821: Past medical records reviewed. The patient was evaluated in room C6. A complete history and physical examination was performed. 1825: Ordered Zofran Inj 4 mg IV, Toradol Inj 15 mg IV. 1829: Ordered Morphine Sulfate 4 mg IV. Medical Decision Etiologies such as appendicitis, diverticulitis, PUD, biliary pathology, UTI, pancreatitis, obstruction, mesenteric ischemia, aortic pathology, infections, inflammatory bowel disease, renal colic, as well as others were entertained. 76-year-old presented to the emergency department for evaluation of mild diffuse abdominal pain today without vomiting, diarrhea or constipation. He denies any complaints. Screening labs and CT head and pelvis were negative. Patient urinated without providing sample during his 4 hour ER course. I requested urine straight cath to eliminate UTI as potential etiology for patient 's symptoms the patient adamantly refused. He says he has no pain and would like to leave and he agrees to return for any worsening worrisome symptoms. Impression Primary Impression: Abdominal pain Scribe Attestation The scribe's documentation has been prepared under my direction and personally reviewed by me in its entirety. I confirm that the note above accurately reflects all work, treatment, procedures, and medical decision making performed by me. Departure Information Referrals Ajith Herman D.O. (PCP) Patient Instructions My [facility] [address]
[2016-08-11 18:44] LABS: BASO % 0.4 %; BASO ABS # 0.05 K/uL (0-0.2); COMPLETE YES; EOS % 0.9 %; HEMATOCRIT 54.4 % (42-52); IG% 0.3 %; LYMPH % 11.2 %; LYMPH ABS # 1.26 K/uL (1.2-3.4); MEAN CELL VOLUME 70.9 fL (80-100); MEAN CORPUSCULAR HEMOGLOBIN 23.2 pg (25-34); MEAN CORPUSCULAR HGB CONC 32.7 g/dl (32-36); MONO % 8.7 %; NEUT % 78.5 %; PLATELET COUNT 251 K/uL (130-400); RED BLOOD COUNT 7.67 M/uL (4.7-6.1); WHITE BLOOD COUNT 11.21 K/uL (4.8-10.8)
[2016-08-11] MEDS ORDERED: OPTIRAY 320 IV PRN (19:15)
[2016-08-11 19:23] LABS: BUN/CREATININE RATIO 14.2 (10-20); CALCIUM 8.8 mg/dl (8.5-10.1); CREATININE 1.4 mg/dl (0.60-1.40)
--- NOTE | 2016-08-11 19:23 | DIAGNOSTIC IMAGING REPORT ---
CHEST ONE VIEW PORTABLE HISTORY: Generalized abdominal pain. COMPARISON: Chest 07/31/2016. FINDINGS: Low lung volumes. Linear density left lung base persist and favor subsegmental atelectasis. The heart remains mildly enlarged. No pleural effusions. No pneumothorax. No new focal lung consolidations to suggest pneumonia. No evidence for pulmonary edema. Old, healed right-sided rib fractures. Slight elevation of the left hemidiaphragm which may be positional. IMPRESSION: No significant change compared to the prior study. No acute process. Electronically signed by: Dipesh Milner M.D. 08/11/2016 7:22 PM Dictated Date/Time: 08/11/2016 7:20 PM
--- NOTE | 2016-08-11 22:21 | DIAGNOSTIC IMAGING REPORT ---
ABDOMEN AND PELVIS CT WITH IV AND ORAL CONTRAST CT DOSE: 579.35 mGy.cm HISTORY: Generalized abdominal pain. TECHNIQUE: Multiaxial CT images of the abdomen and pelvis were performed following the use of intravenous and oral contrast. COMPARISON STUDY: Abdomen and pelvis CT 08/10/2016. FINDINGS: Lower chest: There are bibasal atelectatic changes present. Liver: There is a stable 8 mm hypodensity immediately beneath the hepatic dome. There is a stable 11 mm cyst within the lateral segment left hepatic lobe. There is a 9 mm subcapsular hypodensity within the medial segment the left lobe. There are a few additional tiny to small to characterize hepatic hypodensities likely representing cysts. These remain unchanged. Gallbladder: Surgically absent Spleen: Normal in size and attenuation. Pancreas: Unremarkable. Adrenal glands: Unremarkable. Kidneys: There is a stable 11 mm upper pole left renal cyst. There is a stable 15 mm hypodensity within the lower pole of the left kidney. This slightly exceeds water attenuation and is therefore indeterminate. Bowel: There are no transition zones indicate bowel obstruction. There is no evidence of acute diverticulitis. There are scattered colonic diverticula present. The appendix is normal in appearance. Peritoneum: There is no intraperitoneal free air or abdominal ascites. Vasculature: The abdominal aorta is normal in course and caliber. Adenopathy: None. Pelvic viscera: The prostate remains significantly enlarged measuring 7 cm in AP dimension. Contrast within the renal collecting systems and bladder from the recent CT examination. Skeletal structures: No destructive osseous lesions are seen. IMPRESSION: 1. Stable hepatic hypodensities likely representing cysts 2. Stable indeterminate 15 mm lower pole left renal hypodensity 3. No evidence of bowel obstruction. No evidence of free air 4. Normal appendix 5. Diverticulosis. No evidence of acute diverticulitis 6. Prostatic enlargement, unchanged. 7. Overall, there has been no significant change compared to the prior studies. Electronically signed by: Dipesh Milner M.D. 08/11/2016 10:20 PM Dictated Date/Time: 08/11/2016 10:10 PM
[2016-08-11 22:38] VITALS: BP 120/70; PULSE 81; O2SAT 96
== END 2016-08-11 22:39 | disposition home or self-care (01) ==
LOC: EDBD 17:55 → C.EDC 17:56
DX: R10.9 Unspecified abdominal pain (principal); I48.91 Unspecified atrial fibrillation; J44.9 Chronic obstructive pulmonary disease, unspecified; F32.9 Major depressive disorder, single episode, unspecified; E78.5 Hyperlipidemia, unspecified; Z86.73 Personal history of transient ischemic attack (TIA), and cerebral infarction without residual deficits; I25.2 Old myocardial infarction; Z90.49 Acquired absence of other specified parts of digestive tract

== ENCOUNTER 2016-08-13 12:47 | Emergency (ER) | payer OTHER ==
[~2016-08-13] VITALS: Ht 172.7 cm; Wt 88.0 kg
[2016-08-13 12:50] VITALS: TEMP 36.7; Ht 172.7 cm; Wt 88.0 kg
[2016-08-13] MEDS ORDERED: ONDANSETRON INJ 2 MG/ML 2 ML VIAL IV STA (12:54)
[2016-08-13] MEDS ORDERED: SODIUM CHLORIDE 0.9% 1000ML 1,000 ML IV STA (12:54)
[2016-08-13] MEDS ORDERED: MoRPHine SULFATE 4 MG/ML 1 ML CARP\\VIAL IV PRN (13:00)
[2016-08-13 13:26] LABS: BASO % 0.4 %; BASO ABS # 0.05 K/uL (0-0.2); COMPLETE YES; EOS % 0.6 %; IG% 0.2 %; LYMPH % 7.1 %; LYMPH ABS # 0.97 K/uL (1.2-3.4); MEAN CORPUSCULAR HEMOGLOBIN 23.5 pg (25-34); MEAN CORPUSCULAR HGB CONC 33.1 g/dl (32-36); MEAN PLATELET VOLUME 10.6 fL (7.4-10.4); MONO % 8.1 %; NEUT % 83.6 %; PLATELET COUNT 323 K/uL (130-400); RED BLOOD COUNT 7.75 M/uL (4.7-6.1); WHITE BLOOD COUNT 13.59 K/uL (4.8-10.8)
[2016-08-13 13:42] LABS: INR 1.2 (0.9-1.1); PARTIAL THROMBOPLASTIN RATIO 1.1; PROTHROMBIN TIME (PATIENT) 12.9 SECONDS (9.0-12.0)
[2016-08-13 13:50] LABS: BUN/CREATININE RATIO 16.1 (10-20); CALCIUM 9.1 mg/dl (8.5-10.1); CREATININE 1.4 mg/dl (0.60-1.40); POTASSIUM 3.9 mmol/L (3.5-5.1)
--- NOTE | 2016-08-13 14:18 | DIAGNOSTIC IMAGING REPORT ---
CHEST 1 VW FRONT-NOT PORTABLE CLINICAL HISTORY: Nausea and vomiting. COMPARISON STUDY: 08/11/2016 FINDINGS: The heart is mildly enlarged. There is no focal pulmonary consolidation. There is no failure. There are no significant pleural effusions. There is minor left basilar atelectasis/scarring similar to the prior study. IMPRESSION: No active disease in the chest. Electronically signed by: Yannick Rodriguez M.D. 08/13/2016 2:16 PM Dictated Date/Time: 08/13/2016 2:15 PM
--- NOTE | 2016-08-13 14:20 | DIAGNOSTIC IMAGING REPORT ---
KUB CLINICAL HISTORY: suprapubic pain COMPARISON STUDY: 08/01/2014 FINDINGS: The bladder is mildly opacified, likely secondary to a prior CT scan. There are no transition zones indicate bowel obstruction. There are multiple nonspecific pelvic basin calcifications. There is a minimally dilated central abdominal small bowel loop. This may indicate a mild ileus. There are surgical clips in the right upper quadrant. IMPRESSION: 1. No conventional radiographic evidence of bowel obstruction 2. Mildly dilated mid abdominal small bowel loop, possibly indicative of a focal ileus 3. Nonspecific pelvic basin calcifications Electronically signed by: Yannick Rodriguez M.D. 08/13/2016 2:18 PM Dictated Date/Time: 08/13/2016 2:17 PM
--- NOTE | 2016-08-13 14:28 | EMERGENCY ROOM VISIT NOTE ---
History Report prepared by Georgetteibrachel: Kenroy Madera Under the Supervision of: Dr. Jadiel Mast D.O. First contact with patient: 12:45 Chief Complaint: ABDOMINAL PAIN Stated Complaint: AB PAIN, NAUSEA,VOMITING,DIARRHEA Nursing Triage Summary: Pt to ED via BLS. Pt reports nausea, diarrhea and abdominal pain since Saturday. Seen in ED multiple times since Saturday. History of Present Illness The patient is a 76 year old male who presents to the Emergency Room with complaints of persistent lower abdominal pain for the past three days. The pain is rated 8/10 in severity. The patient also complains of nausea, but notes that he has been unable to vomit. He also denies fevers, chills, chest pain, or shortness of breath. The patient was started on Flagyl and Cipro three days ago , but is not sure if he was diagnosed with diverticulitis. The patient has never had a colonoscopy. He had a past hernia repair but denies any other abdominal surgeries including cholecystectomy and appendectomy. Source of History: patient Onset: three days Position: abdomen (lower) Symptom Intensity: 8/10 Timing: other (persistent) Associated Symptoms: + nausea, No SOB, No chest pain, No chills, No fevers, No vomiting Review of Systems See HPI for pertinent positives & negatives. A total of 10 systems reviewed and were otherwise negative. 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 (4) Bullous pemphigoid (5) COPD (chronic obstructive pulmonary disease) (6) COPD, mild (7) Depression (8) Diarrhea (9) DJD (degenerative joint disease) of cervical spine (10) Dyslipidemia (11) Generalized anxiety disorder (12) Generalized osteoarthritis (13) History of hemolytic anemia (14) History of TIA (transient ischemic attack) (15) Internal hemorrhoids (16) Myocardial infarction (17) Near syncope (18) Orthostasis (19) Polycythemia vera (20) Superficial vein thrombosis Surgical Problems: (1) H/O hernia repair (2) History of carpal tunnel surgery (3) Hx of cholecystectomy (4) S/P TURP Family History Cardiac arrest Heart disease Stroke Social History Smoking Status: Never Smoker Alcohol Use: none Drug Use: none Marital Status: Housing Status: lives with significant other Occupation Status: retired Current/Historical Medications Scheduled Ciprofloxacin Hcl (Cipro), 500 MG PO BID Doxycycline Hyclate (Vibramycin), 100 MG PO BID Finasteride (Proscar), 5 MG PO DAILY Metronidazole (Flagyl), 500 MG PO TID Tamsulosin HCl (Tamsulosin HCl), 0.4 MG PO DAILY Scheduled PRN Lorazepam (Ativan), 0.5 MG PO Q8 PRN for Anxiety Allergies Coded Allergies: Adhesives (Verified Allergy, Mild, PAPER TAPE-MARKED SKIN, 08/13/16) Dapsone (Verified Allergy, Unknown, methemoglobinemia, 08/13/16) Aspirin (Verified Adverse Reaction, Unknown, bleeding, 08/13/16) Warfarin (Verified Adverse Reaction, Unknown, bleeding, 08/13/16) Physical Exam Vital Signs Date Time Temp Pulse Resp B/P Pulse Ox O2 Delivery O2 Flow Rate FiO2 08/13/16 16:14 74 16 114/76 96 08/13/16 14:23 76 16 132/87 94 Room Air 08/13/16 13:14 79 08/13/16 12:50 36.7 80 16 145/76 95 Room Air Physical Exam GENERAL: Patient is awake, alert, and in no acute distress. Patient is resting comfortably and showing no signs of anxiety EYES: The conjunctivae are clear. The pupils are round and reactive. EARS, NOSE, MOUTH AND THROAT: The nose is without any evidence of any deformity. Mucous membranes are moist tongue is midline NECK: The neck is nontender and supple. RESPIRATORY: Normal respiratory effort is noted there is no evidence of wheezing rhonchi or rales CARDIOVASCULAR: Regular rate and rhythm noted there no murmurs rubs or gallops normal S1 normal S2 GASTROINTESTINAL: Abdomen is mildly distended but soft. There is suprapubic tenderness to palpation without guarding or rigidity. MUSCULOSKELETAL/EXTREMITIES: There is no evidence of gross deformity full range of motion is noted in the hips and shoulders SKIN: There is no obvious evidence of any rash. There are no petechiae, pallor or cyanosis noted. Trace pedal edema bilaterally. NEUROLOGIC: Patient is awake alert and oriented x3. Medical Decision & Procedures ER Provider Diagnostic Interpretation: X-ray results as stated below per interpretation by me and the radiologist. CHEST 1 VW FRONT-NOT PORTABLE CLINICAL HISTORY: Nausea and vomiting. COMPARISON STUDY: 08/11/2016 FINDINGS: The heart is mildly enlarged. There is no focal pulmonary consolidation. There is no failure. There are no significant pleural effusions. There is minor left basilar atelectasis/scarring similar to the prior study. IMPRESSION: No active disease in the chest. Electronically signed by: Yannick Rodriguez M.D. 08/13/2016 2:16 PM Dictated Date/Time: 08/13/2016 2:15 PM KUB CLINICAL HISTORY: suprapubic pain COMPARISON STUDY: 08/01/2014 FINDINGS: The bladder is mildly opacified, likely secondary to a prior CT scan. There are no transition zones indicate bowel obstruction. There are multiple nonspecific pelvic basin calcifications. There is a minimally dilated central abdominal small bowel loop. This may indicate a mild ileus. There are surgical clips in the right upper quadrant. IMPRESSION: 1. No conventional radiographic evidence of bowel obstruction 2. Mildly dilated mid abdominal small bowel loop, possibly indicative of a focal ileus 3. Nonspecific pelvic basin calcifications Electronically signed by: Yannick Rodriguez M.D. 08/13/2016 2:18 PM Dictated Date/Time: 08/13/2016 2:17 PM Laboratory Results 08/13/16 13:05 Red Blood Count 7.75, Mean Corpuscular Volume 71.0, Mean Corpuscular Hemoglobin 23.5, Mean Corpuscular Hemoglobin Concent 33.1, Mean Platelet Volume 10.6, Neutrophils (%) (Auto) 83.6, Lymphocytes (%) (Auto) 7.1, Monocytes (%) (Auto) 8.1, Eosinophils (%) (Auto) 0.6, Basophils (%) (Auto) 0.4, Neutrophils # (Auto) 11.36, Lymphocytes # (Auto) 0.97, Monocytes # (Auto) 1.10, Eosinophils # (Auto) 0.08, Basophils # (Auto) 0.05 08/13/16 13:05 Test 08/13/16 13:05 08/13/16 15:50 White Blood Count 13.59 K/uL (4.8-10.8) Red Blood Count 7.75 M/uL (4.7-6.1) Hemoglobin 18.2 g/dL (14.0-18.0) Hematocrit 55.0 % (42-52) Mean Corpuscular Volume 71.0 fL (80-100) Mean Corpuscular Hemoglobin 23.5 pg (25-34) Mean Corpuscular Hemoglobin Concent 33.1 g/dl (32-36) Platelet Count 323 K/uL (130-400) Mean Platelet Volume 10.6 fL (7.4-10.4) Neutrophils (%) (Auto) 83.6 % Lymphocytes (%) (Auto) 7.1 % Monocytes (%) (Auto) 8.1 % Eosinophils (%) (Auto) 0.6 % Basophils (%) (Auto) 0.4 % Neutrophils # (Auto) 11.36 K/uL (1.4-6.5) Lymphocytes # (Auto) 0.97 K/uL (1.2-3.4) Monocytes # (Auto) 1.10 K/uL (0.11-0.59) Eosinophils # (Auto) 0.08 K/uL (0-0.5) Basophils # (Auto) 0.05 K/uL (0-0.2) RDW Standard Deviation 48.0 fL (36.4-46.3) RDW Coefficient of Variation 19.7 % (11.5-14.5) Immature Granulocyte % (Auto) 0.2 % Immature Granulocyte # (Auto) 0.03 K/uL (0.00-0.02) Prothrombin Time 12.9 SECONDS (9.0-12.0) Prothromb Time International Ratio 1.2 (0.9-1.1) Activated Partial Thromboplast Time 28.1 SECONDS (21.0-31.0) Partial Thromboplastin Ratio 1.1 Anion Gap 12.0 mmol/L (3-11) Est Creatinine Clear Calc Drug Dose 47.6 ml/min Estimated GFR () 55.8 Estimated GFR (Non- 48.1 BUN/Creatinine Ratio 16.1 (10-20) Calcium Level 9.1 mg/dl (8.5-10.1) Total Bilirubin 1.0 mg/dl (0.2-1) Direct Bilirubin 0.2 mg/dl (0-0.2) Aspartate Amino Transf (AST/SGOT) 28 U/L (15-37) Alanine Aminotransferase (ALT/SGPT) 27 U/L (12-78) Alkaline Phosphatase 63 U/L (45-117) Total Protein 7.0 gm/dl (6.4-8.2) Albumin 3.9 gm/dl (3.4-5.0) Lipase 96 U/L (73-393) Urine Color DK YELLOW Urine Appearance CLEAR (CLEAR) Urine pH 5.0 (4.5-7.5) Urine Specific [place] 1.026 (1.000-1.030) Urine Protein TRACE (NEG) Urine Glucose (UA) NEG (NEG) Urine Ketones 1+ (NEG) Urine Occult Blood NEG (NEG) Urine Nitrite POS (NEG) Urine Bilirubin NEG (NEG) Urine Urobilinogen NEG (NEG) Urine Leukocyte Esterase TRACE (NEG) Urine WBC (Auto) 1-5 /hpf (0-5) Urine RBC (Auto) 0-4 /hpf (0-4) Urine Hyaline Casts (Auto) 1-5 /lpf (0-5) Urine Epithelial Cells (Auto) 10-20 /lpf (0-5) Urine Bacteria (Auto) NEG (NEG) Laboratory results per my review. Medications Administered Medications (Trade) Dose Ordered Sig/Linette Route Start Time Stop Time Status Last Admin Dose Admin Sodium Chloride (Nss 1000ml) 1,000 ml @ 999 mls/hr Q1H1M STAT IV 08/13/16 12:54 08/13/16 13:54 DC 08/13/16 13:19 999 MLS/HR Ondansetron HCl (Zofran Inj) 4 mg NOW STAT IV 08/13/16 12:54 08/13/16 12:56 DC 08/13/16 13:19 4 MG Morphine Sulfate (MoRPHine SULFATE INJ) 4 mg Q15M PRN IV 08/13/16 13:00 08/13/16 17:29 DC 08/13/16 13:19 4 MG ED Course 1247: The patient was evaluated in room B6. A complete history and physical examination were performed. 1254: Zofran 4 mg IV, NSS 1000 ml @ 999 mls/hr. 1300: Morphine Sulfate 4 mg IV. 1610: harbor department manager arranged follow up with Dr. Herman next week. 1615: Reassessed the patient. Discussed the plan with him. He verbalized agreement. The patient is ready for discharge. Medical Decision Prior records/ancillary studies reviewed. Triage Nursing notes reviewed. The patient's history was concerning for abdominal pain. Differential diagnosis: Etiologies such as appendicitis, diverticulitis, PUD, biliary pathology, UTI, pancreatitis, obstruction, mesenteric ischemia, aortic pathology, infections, inflammatory bowel disease, renal colic, as well as others were entertained. The patient is a 76-year-old male who presented to the emergency department for an evaluation of suprapubic pain. The patient was seen in our facility 3 times recently. He is had multiple CAT scans the abdomen and pelvis. He was started on antibiotics for presumed diverticulitis and I do agree with this assessment. The patient was treated with IV fluids IV pain medicine IV antiemetics in the emergency department. He was feeling much better on subsequent reevaluation. He was encouraged to continue all medications as prescribed. He was also encouraged to follow-up with his primary care physician this week for reevaluation but return to the emergency department immediately if symptoms change worsen or the need arises. I discussed his case with the emergency Department community case manager. They were able to help the patient get an appointment with his primary care physician for follow-up. Impression Primary Impression: Suprapubic abdominal pain Additional Impression: Suspected diverticulitis Scribe Attestation The scribe's documentation has been prepared under my direction and personally reviewed by me in its entirety. I confirm that the note above accurately reflects all work, treatment, procedures, and medical decision making performed by me. Departure Information Dispostion Home / Self-Care Referrals Ajith Herman D.O. (PCP) Forms HOME CARE DOCUMENTATION FORM, IMPORTANT VISIT INFORMATION Patient Instructions Abdominal Pain, My [facility] Additional Instructions Continue all medications as prescribed. Follow-up with your family doctor as scheduled this week. Problem Qualifiers
[2016-08-13 16:13] LABS: URINE APPEARANCE CLEAR (CLEAR); URINE COLOR DK YELLOW; URINE NITRITE POS (NEG); URINE SPECIFIC GRAVITY 1.026 (1.000-1.030); UROBILINOGEN NEG (NEG)
[2016-08-13 16:14] VITALS: BP 114/76; PULSE 74; O2SAT 96
[2016-08-13 16:15] LABS: MANUAL MICROSCOPIC REQUIRED? NO; REVIEW REQ? NO
[2016-08-13 16:16] LABS: URINE BILIRUBIN NEG (NEG)
== END 2016-08-13 17:05 | disposition home or self-care (01) ==
LOC: EDBD 12:47 → C.EDB 12:48
DX: R10.30 Lower abdominal pain, unspecified (principal); R11.0 Nausea; I48.91 Unspecified atrial fibrillation; N40.1 Benign prostatic hyperplasia with lower urinary tract symptoms; J44.9 Chronic obstructive pulmonary disease, unspecified; F32.9 Major depressive disorder, single episode, unspecified; E78.5 Hyperlipidemia, unspecified; F41.1 Generalized anxiety disorder; Z86.73 Personal history of transient ischemic attack (TIA), and cerebral infarction without residual deficits; I25.2 Old myocardial infarction; D45 Polycythemia vera; Z90.49 Acquired absence of other specified parts of digestive tract; Z82.3 Family history of stroke; Z79.899 Other long term (current) drug therapy

== ENCOUNTER 2016-08-26 19:08 | Emergency (ER) | payer OTHER ==
[~2016-08-26] VITALS: Ht 172.7 cm; Wt 85.0 kg
[~2016-08-26 19:08] MED LIST changes: -METR-163 PO
[2016-08-26 19:15] VITALS: TEMP 36.8; Ht 172.7 cm; Wt 85.0 kg
[2016-08-26] MEDS ORDERED: ONDANSETRON INJ 2 MG/ML 2 ML VIAL IV STA (19:22)
[2016-08-26] MEDS ORDERED: SODIUM CHLORIDE 0.9% 1000ML 1,000 ML IV STA (19:22)
[2016-08-26] MEDS ORDERED: MoRPHine SULFATE 4 MG/ML 1 ML CARP\\VIAL IV PRN (19:30)
[2016-08-26 19:54] LABS: BASO % 0.4 %; BASO ABS # 0.04 K/uL (0-0.2); EOS % 1.4 %; IG% 0.4 %; LYMPH % 10.5 %; LYMPH ABS # 1.15 K/uL (1.2-3.4); MEAN CELL VOLUME 72.2 fL (80-100); MEAN CORPUSCULAR HEMOGLOBIN 23.8 pg (25-34); MONO % 10.2 %; NEUT % 77.1 %; PLATELET COUNT 214 K/uL (130-400); RED BLOOD COUNT 7.48 M/uL (4.7-6.1)
[2016-08-26 20:02] LABS: INR 1.1 (0.9-1.1); PARTIAL THROMBOPLASTIN RATIO 1.1
[2016-08-26 20:12] LABS: BUN/CREATININE RATIO 12.9 (10-20); CREATININE 1.4 mg/dl (0.60-1.40); POTASSIUM 4.1 mmol/L (3.5-5.1)
[2016-08-26] MEDS ORDERED: CITA10TA4 PO (20:23)
--- NOTE | 2016-08-26 21:03 | DIAGNOSTIC IMAGING REPORT ---
ABDOMEN 2VIEW W/PA CHEST RTN CLINICAL HISTORY: ABDOMINAL PAIN/GI pain COMPARISON STUDY: 08/13/2016 FINDINGS: The soft tissues, psoas shadows, renal outlines and intestinal gas pattern appear normal. There is no evidence for bowel obstruction. There is no evidence for free intraperitoneal air. No abnormal abdominal calcifications are seen. A frontal view of the chest was performed and is unremarkable. IMPRESSION: Normal study. Electronically signed by: Boom Verduzco M.D. 08/26/2016 9:02 PM Dictated Date/Time: 08/26/2016 9:01 PM
[2016-08-26 21:11] LABS: ANISOCYTOSIS PRESENT; COMPLETE YES
[2016-08-26 21:46] VITALS: BP 119/71; PULSE 68; O2SAT 97
--- NOTE | 2016-08-26 21:54 | EMERGENCY ROOM VISIT NOTE ---
History Report prepared by Bhupinder: Ana Ford Under the Supervision of: Dr. Jadiel Mast D.O. First contact with patient: 19:13 Chief Complaint: ABDOMINAL PAIN Stated Complaint: AB PAIN History of Present Illness The patient is a 76 year old male who presents to the Emergency Room with complaints of persistent diffuse abdominal pain that started 3 weeks ago. The patient came to the ED via ambulance. He is also experiencing diarrhea, but denies nausea and vomiting. The patient was seen in the ED on August 13 for the same symptoms. He states that he finished the antibiotics that he was prescribed. He states that he has not seen his PCP for this pain because he does not like him. The patient state that he has never had a colonoscopy done. Source of History: patient Onset: 3 weeks ago Position: abdomen (diffuse) Timing: other (persistent) Associated Symptoms: + diarrhea, No nausea, No vomiting Review of Systems See HPI for pertinent positives & negatives. A total of 10 systems reviewed and were otherwise negative. 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 (4) Bullous pemphigoid (5) COPD (chronic obstructive pulmonary disease) (6) COPD, mild (7) Depression (8) Diarrhea (9) DJD (degenerative joint disease) of cervical spine (10) Dyslipidemia (11) Generalized anxiety disorder (12) Generalized osteoarthritis (13) History of hemolytic anemia (14) History of TIA (transient ischemic attack) (15) Internal hemorrhoids (16) Myocardial infarction (17) Near syncope (18) Orthostasis (19) Polycythemia vera (20) Superficial vein thrombosis Surgical Problems: (1) H/O hernia repair (2) History of carpal tunnel surgery (3) Hx of cholecystectomy (4) S/P TURP Family History Cardiac arrest Heart disease Stroke Social History Smoking Status: Never Smoker Alcohol Use: none Drug Use: none Marital Status: Housing Status: lives with significant other Occupation Status: retired Current/Historical Medications Scheduled Citalopram Hydrobromide (Citalopram Hydrobromide), 1 TAB PO DAILY Finasteride (Proscar), 5 MG PO DAILY Tamsulosin HCl (Tamsulosin HCl), 0.4 MG PO DAILY Scheduled PRN Lorazepam (Ativan), 0.5 MG PO Q8 PRN for Anxiety Allergies Coded Allergies: Adhesives (Verified Allergy, Mild, PAPER TAPE-MARKED SKIN, 08/13/16) Dapsone (Verified Allergy, Unknown, methemoglobinemia, 08/13/16) Aspirin (Verified Adverse Reaction, Unknown, bleeding, 08/13/16) Warfarin (Verified Adverse Reaction, Unknown, bleeding, 08/13/16) Physical Exam Vital Signs Date Time Temp Pulse Resp B/P Pulse Ox O2 Delivery O2 Flow Rate FiO2 08/26/16 21:46 68 20 119/71 97 Room Air 08/26/16 20:41 65 19 131/65 95 Room Air 08/26/16 19:39 69 08/26/16 19:15 36.8 68 20 128/88 97 Room Air Physical Exam GENERAL: Patient is awake, alert, and in no acute distress. Patient is resting comfortably and showing no signs of anxiety EYES: The conjunctivae are clear. The pupils are round and reactive. EARS, NOSE, MOUTH AND THROAT: The nose is without any evidence of any deformity. Mucous membranes are moist tongue is midline NECK: The neck is nontender and supple. RESPIRATORY: Normal respiratory effort is noted there is no evidence of wheezing rhonchi or rales CARDIOVASCULAR: Regular rate and rhythm noted there no murmurs rubs or gallops normal S1 normal S2 GASTROINTESTINAL: The abdomen is mildly distended but soft. Bowel sounds are present in all quadrants. Abdomen is diffusely tender to palpation. No guarding or rigidity noted. MUSCULOSKELETAL/EXTREMITIES: There is no evidence of gross deformity full range of motion is noted in the hips and shoulders SKIN: There is no obvious evidence of any rash. There are no petechiae, pallor or cyanosis noted. NEUROLOGIC: Patient is awake alert and oriented x3 Medical Decision & Procedures ER Provider Diagnostic Interpretation: X-ray results as stated below per interpretation by me and the radiologist. ABDOMEN 2VIEW W/PA CHEST RTN IMPRESSION: Normal study. Electronically signed by: Boom Verduzco M.D. 08/26/2016 9:02 PM Dictated Date/Time: 08/26/2016 9:01 PM Laboratory Results 08/26/16 19:38 Red Blood Count 7.48, Mean Corpuscular Volume 72.2, Mean Corpuscular Hemoglobin 23.8, Mean Corpuscular Hemoglobin Concent 33.0, Neutrophils (%) (Auto) 77.1, Lymphocytes (%) (Auto) 10.5, Monocytes (%) (Auto) 10.2, Eosinophils (%) (Auto) 1.4, Basophils (%) (Auto) 0.4, Neutrophils # (Auto) 8.50, Lymphocytes # (Auto) 1.15, Monocytes # (Auto) 1.12, Eosinophils # (Auto) 0.15, Basophils # (Auto) 0.04 08/26/16 19:38 Test 08/26/16 19:38 White Blood Count 11.00 K/uL (4.8-10.8) Red Blood Count 7.48 M/uL (4.7-6.1) Hemoglobin 17.8 g/dL (14.0-18.0) Hematocrit 54.0 % (42-52) Mean Corpuscular Volume 72.2 fL (80-100) Mean Corpuscular Hemoglobin 23.8 pg (25-34) Mean Corpuscular Hemoglobin Concent 33.0 g/dl (32-36) Platelet Count 214 K/uL (130-400) Neutrophils (%) (Auto) 77.1 % Lymphocytes (%) (Auto) 10.5 % Monocytes (%) (Auto) 10.2 % Eosinophils (%) (Auto) 1.4 % Basophils (%) (Auto) 0.4 % Neutrophils # (Auto) 8.50 K/uL (1.4-6.5) Lymphocytes # (Auto) 1.15 K/uL (1.2-3.4) Monocytes # (Auto) 1.12 K/uL (0.11-0.59) Eosinophils # (Auto) 0.15 K/uL (0-0.5) Basophils # (Auto) 0.04 K/uL (0-0.2) RDW Standard Deviation 52.2 fL (36.4-46.3) RDW Coefficient of Variation 20.6 % (11.5-14.5) Immature Granulocyte % (Auto) 0.4 % Immature Granulocyte # (Auto) 0.04 K/uL (0.00-0.02) Anisocytosis PRESENT Prothrombin Time 12.0 SECONDS (9.0-12.0) Prothromb Time International Ratio 1.1 (0.9-1.1) Activated Partial Thromboplast Time 28.1 SECONDS (21.0-31.0) Partial Thromboplastin Ratio 1.1 Anion Gap 10.0 mmol/L (3-11) Est Creatinine Clear Calc Drug Dose 46.9 ml/min Estimated GFR () 55.8 Estimated GFR (Non- 48.1 BUN/Creatinine Ratio 12.9 (10-20) Calcium Level 9.0 mg/dl (8.5-10.1) Total Bilirubin 0.7 mg/dl (0.2-1) Direct Bilirubin 0.2 mg/dl (0-0.2) Aspartate Amino Transf (AST/SGOT) 22 U/L (15-37) Alanine Aminotransferase (ALT/SGPT) 26 U/L (12-78) Alkaline Phosphatase 48 U/L (45-117) Total Protein 6.9 gm/dl (6.4-8.2) Albumin 3.6 gm/dl (3.4-5.0) Lipase 170 U/L (73-393) Laboratory results per my review. Medications Administered Medications (Trade) Dose Ordered Sig/Linette Route Start Time Stop Time Status Last Admin Dose Admin Sodium Chloride (Nss 1000ml) 1,000 ml @ 999 mls/hr Q1H1M STAT IV 08/26/16 19:22 08/26/16 20:22 DC 08/26/16 20:10 999 MLS/HR Ondansetron HCl (Zofran Inj) 4 mg NOW STAT IV 08/26/16 19:22 08/26/16 19:23 DC 08/26/16 20:10 4 MG Morphine Sulfate (MoRPHine SULFATE INJ) 4 mg Q15M PRN IV 08/26/16 19:30 08/26/16 22:39 DC 08/26/16 20:11 4 MG ED Course 1918: The patient was evaluated in room C11. A complete history and physical examination were performed. 1921: Ordered Zofran Inj 4 mg IV, NSS 1,000 ml @ 999 mls/hr IV 1929: Ordered Morphine Sulfate 4 mg IV 2135: Upon reevaluation, the patient is doing well. I discussed the results and treatment plan with him. He verbalized agreement of the treatment plan. He was discharged home. Medical Decision Prior records/ancillary studies reviewed. Triage Nursing notes reviewed. The patient's history was concerning for abdominal pain. Differential diagnosis: Etiologies such as appendicitis, diverticulitis, PUD, biliary pathology, UTI, pancreatitis, obstruction, mesenteric ischemia, aortic pathology, infections, inflammatory bowel disease, renal colic, as well as others were entertained. The patient is a 76-year-old male who presented to the emergency department for an evaluation of lower abdominal pain. The patient is had multiple episodes of lower abdominal pain over the last few months. He's been seen in our facility and this year alone he is had multiple CAT scans the abdomen and pelvis which did not show definite cause. He was felt to have clinical diverticulitis and was treated with a full course of antibiotic. He does not of a fever. He does not have guarding or a surgical abdomen on physical exam. The patient's white blood cell count is mildly elevated but it is improved compared to previous. I discussed the patient's laboratory and radiographic studies with him. He was encouraged to follow-up with his primary care physician as well as his primary gastrologist. I do feel the patient may require a colonoscopy to further evaluate his symptoms. He was encouraged to return to the emergency department immediately if symptoms change worsen or the need arises. Impression Primary Impression: Abdominal pain, chronic, left lower quadrant Scribe Attestation The scribe's documentation has been prepared under my direction and personally reviewed by me in its entirety. I confirm that the note above accurately reflects all work, treatment, procedures, and medical decision making performed by me. Departure Information Dispostion Home / Self-Care Referrals Ajith Herman D.O. (PCP) Forms HOME CARE DOCUMENTATION FORM, IMPORTANT VISIT INFORMATION Patient Instructions Abdominal Pain, My [facility] Additional Instructions Call your family in the morning to schedule a follow-up appointment. I would recommend a follow-up appointment with your route driver coin machines for colonoscopy to further evaluate the cause of your abdominal pain. Continue all medications as prescribed.
== END 2016-08-26 22:00 | disposition home or self-care (01) ==
LOC: EDBD 19:08 → C.EDC 19:10
DX: R10.32 Left lower quadrant pain (principal); G89.29 Other chronic pain; I48.91 Unspecified atrial fibrillation; J44.9 Chronic obstructive pulmonary disease, unspecified; F41.1 Generalized anxiety disorder; Z86.73 Personal history of transient ischemic attack (TIA), and cerebral infarction without residual deficits; I25.2 Old myocardial infarction; E78.5 Hyperlipidemia, unspecified; Z90.49 Acquired absence of other specified parts of digestive tract

== ENCOUNTER → 2016-08-30 | Outpatient (CLI) | payer OTHER ==
[~2016-08-30] MED LIST changes: -CIPR-255 PO; +CITA10TA4 PO; -DOXY100C2 PO; +OPTIRAY 320 IV PRN
--- NOTE | 2016-08-30 15:19 | DIAGNOSTIC IMAGING REPORT ---
ABDOMEN AND PELVIS CT WITH IV AND ORAL CONTRAST CT DOSE: 1068.14 mGycm HISTORY: Epigastric pain. Weight loss. TECHNIQUE: Multiaxial CT images of the abdomen and pelvis were performed following the use of intravenous and oral contrast. COMPARISON STUDY: Abdomen and pelvis CT 08/11/2016. FINDINGS: Lower chest: There are bibasal atelectatic changes present. Hypodensity within the suprahepatic IVC likely represents mixing of blood and contrast. Liver: There is a stable 8 mm hypodensity immediately beneath the hepatic dome. There is a stable 11 mm cyst within the lateral segment left hepatic lobe. There is a 9 mm subcapsular hypodensity within the medial segment the left lobe. There are a few additional tiny to small to characterize hepatic hypodensities likely representing cysts. These remain unchanged. Gallbladder: Surgically absent Spleen: Normal in size and attenuation. Pancreas: Unremarkable. Adrenal glands: Unremarkable. Kidneys: There is a stable 11 mm upper pole left renal cyst. There is a stable 15 mm hypodensity within the lower pole of the left kidney. This slightly exceeds water attenuation and is therefore indeterminate. Bowel: There are no transition zones indicate bowel obstruction. There is no evidence of acute diverticulitis. There are scattered colonic diverticula present. The appendix is normal in appearance. Peritoneum: There is no intraperitoneal free air or abdominal ascites. Vasculature: The abdominal aorta is normal in course and caliber. Adenopathy: None. Pelvic viscera: The prostate remains significantly enlarged measuring 7 cm in AP dimension. Skeletal structures: No destructive osseous lesions are seen. IMPRESSION: 1. Stable hepatic hypodensities likely representing cysts 2. Stable indeterminate 15 mm lower pole left renal hypodensity 3. No evidence of bowel obstruction. No evidence of free air 4. Normal appendix 5. Diverticulosis. No evidence of acute diverticulitis 6. Prostatic enlargement, unchanged. 7. Overall, there has been no significant change compared to the prior studies. Electronically signed by: Dipesh Milner M.D. 08/30/2016 3:18 PM Dictated Date/Time: 08/30/2016 3:09 PM
== END | disposition home or self-care (01) ==
LOC: C.CTS 12:37
PROVIDERS: ATTEND Internal Medicine
DX: R10.13 Epigastric pain (principal); R63.4 Abnormal weight loss

== ENCOUNTER → 2016-10-29 | Outpatient (CLI) | payer OTHER ==
[~2016-10-29] MED LIST changes: -OPTIRAY 320 IV PRN
--- NOTE | 2016-10-29 14:15 | DIAGNOSTIC IMAGING REPORT ---
LEFT SHOULDER MIN 2 VIEWS CLINICAL HISTORY: LEFT SHOULDER PAIN COMPARISON: None. DISCUSSION: No fractures or dislocations are visualized. There are no erosive or destructive changes. There are no visible periarticular calcifications. IMPRESSION: Unremarkable conventional radiographic evaluation the left shoulder for age Electronically signed by: Yannick Rodriguez M.D. 10/29/2016 2:14 PM Dictated Date/Time: 10/29/2016 2:13 PM
== END | disposition home or self-care (01) ==
LOC: C.RDSM 13:53
PROVIDERS: ATTEND Family Medicine
DX: M25.512 Pain in left shoulder (principal)

== ENCOUNTER 2017-01-30 08:32 | Emergency (ER) | payer OTHER ==
[~2017-01-30] VITALS: Ht 172.7 cm; Wt 88.0 kg
[2017-01-30 08:39] VITALS: BP 123/72; PULSE 69; TEMP 36.5; O2SAT 97; Ht 172.7 cm; Wt 88.0 kg
--- NOTE | 2017-01-30 08:52 | EMERGENCY ROOM VISIT NOTE ---
History First contact with patient: 08:43 Chief Complaint: ELBOW PAIN/INJURY Stated Complaint: RIGHT ELBOW PAIN/REDNESS/WARMTH X 2 WKS History of Present Illness The patient is a 76 year old male who presents to the Emergency Room with complaints of right elbow pain. The patient states he has had pain in the right elbow for the last 2 weeks. He does not recall any specific injury. The pain is localized to the medial aspect of the right elbow. The patient denies any fevers. He states the pain is worse with movement. He states it went away but came back. 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 He rates his discomfort a 7/10. He denies any fevers or chills. He denies any numbness or tingling. He denies any neck pain. He denies any chest pain or trouble breathing. He denies any other symptoms. Review of Systems A 10 system review of systems was completed with positives and pertinent negatives listed in the HPI. 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 (10) Dyslipidemia (11) Generalized anxiety disorder (12) Generalized osteoarthritis (13) History of hemolytic anemia (14) History of TIA (transient ischemic attack) (15) Internal hemorrhoids (16) Myocardial infarction (17) Near syncope (18) Orthostasis (19) Polycythemia vera (20) Superficial vein thrombosis Surgical Problems: (1) H/O hernia repair (2) History of carpal tunnel surgery (3) Hx of cholecystectomy (4) S/P TURP Family History Cardiac arrest Heart disease Stroke Social History Smoking Status: Never Smoker Alcohol Use: none Drug Use: none Marital Status: Housing Status: lives with significant other Occupation Status: retired Current/Historical Medications Scheduled Citalopram Hydrobromide (Citalopram Hydrobromide), 1 TAB PO DAILY Finasteride (Proscar), 5 MG PO DAILY Tamsulosin HCl (Tamsulosin HCl), 0.4 MG PO DAILY Physical Exam Vital Signs Date Time Temp Pulse Resp B/P (MAP) Pulse Ox O2 Delivery O2 Flow Rate FiO2 01/30/17 08:39 36.5 69 18 123/72 97 Room Air Physical Exam VITALS: Vitals are noted on the nurse's note and reviewed by myself. Vital signs stable. The patient is afebrile. GENERAL: This is a 76-year-old male, in no acute distress, nondiaphoretic, well- developed well-nourished. SKIN: The patient does have hyperpigmentation of the skin which is ongoing. There is no significant erythema, warmth or edema to the right elbow. There is no tenting of the skin. Capillary reflex less than 2 seconds. HEAD: Normocephalic atraumatic. EARS: External ears are normal in appearance. EYES: Pupils equal round and reactive to light and accommodation. Conjunctivae without injection, sclerae without icterus. Extraocular movements intact. NOSE: Patent, turbinates without inflammation or discharge. MOUTH: Mucous membranes moist. Tonsils are not enlarged. Pharynx without erythema or exudate. Uvula midline. Airway patent. Tongue does not deviate. NECK: Supple without nuchal rigidity HEART: Regular rate and rhythm without murmurs gallops or rubs. LUNGS: Clear to auscultation bilaterally without wheezes, rales or rhonchi. No retractions or accessory muscle use. MUSCULOSKELETAL: No muscle atrophy, erythema, or edema noted. Full range of motion in all extremities.there is point tenderness to the medial epicondyle of the right elbow. There is no edema, obvious bursitis, ecchymosis, erythema. Normal gait. Strength 5/5 throughout. NEURO: Patient was alert and oriented to person place and time. Normal sensation to light and sharp touch. No focal neurological deficits. Medical Decision & Procedures ER Provider Diagnostic Interpretation: RIGHT ELBOW 3 VIEWS HISTORY: right elbow pain Right COMPARISON: None. FINDINGS: There is no fracture or dislocation. Posterior soft tissue swelling. No elbow effusion. No radiopaque foreign bodies. IMPRESSION: Soft tissue swelling at the olecranon this may represent a bursitis. Laboratory Results 01/30/17 09:00 Test 01/30/17 09:00 Anion Gap 7.0 mmol/L (3-11) Est Creatinine Clear Calc Drug Dose 51.3 ml/min Estimated GFR () 61.0 Estimated GFR (Non- 52.6 BUN/Creatinine Ratio 16.8 (10-20) Uric Acid 8.3 mg/dl (2.6-7.2) Calcium Level 9.9 mg/dl (8.5-10.1) Total Bilirubin 0.8 mg/dl (0.2-1) Aspartate Amino Transf (AST/SGOT) U/L (15-37) Alanine Aminotransferase (ALT/SGPT) 29 U/L (12-78) Alkaline Phosphatase 69 U/L (45-117) C-Reactive Protein < 0.29 mg/dl (0-0.29) Total Protein 7.9 gm/dl (6.4-8.2) Albumin 3.7 gm/dl (3.4-5.0) Globulin 4.2 gm/dl (2.5-4.0) Albumin/Globulin Ratio 0.9 (0.9-2) ED Course The patient was seen and examined. Previous visits were reviewed. The patient does not have a fever. I initially saw the patient at 8:43 AM. He had an x- ray done with the radiology report back by 9:09 AM. The patient also had blood work drawn and at 9:10 AM it was still pending. The patient became very irritated and stated he was told that this would only take 20 minutes. I advised him that that is not realistic given that we are waiting for blood work. The patient waited a few more minutes and again asked what was taking so long. I advised the patient that we were still waiting for blood work and I wanted to be sure that there is not an infection in his elbow. I advised him that the x-ray suggested bursitis. At this time he grew increasingly irritated and stated he was leaving and walked out the door. I was not able to complete the full assessment and did not obtain all laboratory studies. I was not able to give him any discharge instructions or discuss a treatment plan. The patient would not wait. He should return with any worsening symptoms or if he decides to seek treatment. I discussed the patient with Dr. Blanton. The patient left before he could be seen by Dr. Blanton. Medical Decision The differential diagnosis includes tendinitis, bursitis, septic arthritis, Lyme disease, among others Impression Primary Impression: Olecranon bursitis Departure Information Dispostion Other (Left prior to discharge, prior to lab results) Condition FAIR Referrals Ajith Herman D.O. (PCP) Patient Instructions My [facility]
--- NOTE | 2017-01-30 09:10 | DIAGNOSTIC IMAGING REPORT ---
RIGHT ELBOW 3 VIEWS HISTORY: right elbow pain Right COMPARISON: None. FINDINGS: There is no fracture or dislocation. Posterior soft tissue swelling. No elbow effusion. No radiopaque foreign bodies. IMPRESSION: Soft tissue swelling at the olecranon this may represent a bursitis. Electronically signed by: Dipesh Milner M.D. 01/30/2017 9:09 AM Dictated Date/Time: 01/30/2017 9:08 AM
[2017-01-30 09:40] LABS: ALB/GLOB RATIO 0.9 (0.9-2); ALKALINE PHOSPHATASE 69 U/L (45-117); ALT/SGPT 29 U/L (12-78); BLOOD UREA NITROGEN 22 mg/dl (7-18); BUN/CREATININE RATIO 16.8 (10-20); C-REACTIVE PROTEIN < 0.29 mg/dl (0-0.29); CALCIUM 9.9 mg/dl (8.5-10.1); CARBON DIOXIDE 25 mmol/L (21-32); CHLORIDE 108 mmol/L (98-107); GLUCOSE 93 mg/dl (70-99); SODIUM 140 mmol/L (136-145); URIC ACID 8.3 mg/dl (2.6-7.2)
== END 2017-01-30 09:56 | disposition left against medical advice (07) ==
LOC: C.EDB 08:34 → C.ED 09:56 → C.EDB 09:56
DX: M70.21 Olecranon bursitis, right elbow (principal); I48.91 Unspecified atrial fibrillation; N40.1 Benign prostatic hyperplasia with lower urinary tract symptoms; J44.9 Chronic obstructive pulmonary disease, unspecified; F32.9 Major depressive disorder, single episode, unspecified; E78.5 Hyperlipidemia, unspecified; F41.9 Anxiety disorder, unspecified; M19.90 Unspecified osteoarthritis, unspecified site; I25.2 Old myocardial infarction; Z86.718 Personal history of other venous thrombosis and embolism; Z82.49 Family history of ischemic heart disease and other diseases of the circulatory system; Z79.899 Other long term (current) drug therapy

== ENCOUNTER 2017-02-01 11:49 | Emergency (ER) | payer OTHER ==
[~2017-02-01] VITALS: Ht 172.7 cm; Wt 87.0 kg
[~2017-02-01 11:49] MED LIST changes: -LORA-741 PO
[2017-02-01 11:56] VITALS: TEMP 36.4; Ht 172.7 cm; Wt 87.0 kg
--- NOTE | 2017-02-01 13:01 | EMERGENCY ROOM VISIT NOTE ---
ED Visit Note First contact with patient: 12:52 CHIEF COMPLAINT: Right elbow pain HISTORY OF PRESENT ILLNESS: This 36-year-old male presents the ER with chief complaint of right elbow pain for the last week and a half. He denies any trauma to the elbow. He has not been taking anything for pain. He states he was here 2 days ago but it was taking too long so he left. REVIEW OF SYSTEMS: 6 system review was performed and was negative unless stated otherwise in history of present illness. PMH: The patient is healthy; see chronic problem list SOCIAL HISTORY: Patient lives at home. PHYSICAL EXAM: Vital Signs: Were reviewed Reviewed nurse's notes. GENERAL: 76- year-old white male appears in no acute distress. MENTAL Status: Alert and oriented 3. RIGHT ELBOW: No gross bony deformity noted. No erythema or edema noted. The patient is nontender to palpation over the lateral aspect. He does have tenderness over the medial aspect as well as over the olecranon process. No increased temperature to touch. Full range of motion. EMERGENCY DEPARTMENT COURSE: The patient was evaluated. I reviewed the patient' s EMR. When he was here 2 days ago before he left he did have an x-ray which revealed a possibility of olecranon bursitis. The patient was informed of the x -ray findings. The patient was discharged home in stable condition. DIAGNOSIS: Right olecranon bursitis DISCHARGE INSTRUCTIONS & TREATMENT: Ibuprofen 600 mg every 6 hours with food for 5-7 days. Ice intermittently to affected area over the next several days. If symptoms are not improving, recommend follow-up with family doctor. 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 Status: Chronic (4) Bullous pemphigoid Status: Chronic (5) COPD (chronic obstructive pulmonary disease) Status: Chronic (6) COPD, mild Status: Chronic (7) Depression Status: Chronic (8) Diarrhea Status: Resolved (9) DJD (degenerative joint disease) of cervical spine Status: Chronic (10) Dyslipidemia Status: Chronic (11) Generalized anxiety disorder Status: Chronic (12) Generalized osteoarthritis Status: Chronic (13) History of hemolytic anemia Status: Chronic (14) History of TIA (transient ischemic attack) Status: Chronic (15) Internal hemorrhoids Status: Chronic (16) Near syncope Status: Resolved (17) Orthostasis Status: Resolved (18) Polycythemia vera Status: Chronic (19) Superficial vein thrombosis Status: Resolved Surgical Problems: (1) H/O hernia repair Status: Resolved (2) History of carpal tunnel surgery Permanent Comment: bilateral Status: Chronic (3) Hx of cholecystectomy Status: Resolved (4) S/P TURP Status: Chronic Current/Historical Medications Scheduled Citalopram Hydrobromide (Citalopram Hydrobromide), 1 TAB PO DAILY Finasteride (Proscar), 5 MG PO DAILY Tamsulosin HCl (Tamsulosin HCl), 0.4 MG PO DAILY Allergies Coded Allergies: Adhesives (Verified Allergy, Mild, PAPER TAPE-MARKED SKIN, 02/01/17) Dapsone (Verified Allergy, Unknown, methemoglobinemia, 02/01/17) Aspirin (Verified Adverse Reaction, Unknown, bleeding, 02/01/17) Warfarin (Verified Adverse Reaction, Unknown, bleeding, 02/01/17) Vital Signs Date Time Temp Pulse Resp B/P (MAP) Pulse Ox O2 Delivery O2 Flow Rate FiO2 02/01/17 11:56 36.4 78 17 132/76 95 Room Air Departure Information Impression Primary Impression: Olecranon bursitis, right elbow Dispostion Home / Self-Care Condition GOOD Forms HOME CARE DOCUMENTATION FORM, IMPORTANT VISIT INFORMATION Patient Instructions My [facility] [employer] Additional Instructions Ibuprofen 600 mg every 6 hours with food for pain. Apply ice intermittently over the next several days. If symptoms are not improving in 5-7 days, follow- up with your family doctor.
[2017-02-01 13:05] VITALS: BP 134/74; PULSE 74; O2SAT 96
== END 2017-02-01 13:06 | disposition home or self-care (01) ==
LOC: C.EDB 11:51 → C.EDD 13:06
DX: M70.21 Olecranon bursitis, right elbow (principal); I48.91 Unspecified atrial fibrillation; J44.9 Chronic obstructive pulmonary disease, unspecified; E78.5 Hyperlipidemia, unspecified; F32.9 Major depressive disorder, single episode, unspecified; F41.1 Generalized anxiety disorder; D45 Polycythemia vera; M19.90 Unspecified osteoarthritis, unspecified site; Z86.73 Personal history of transient ischemic attack (TIA), and cerebral infarction without residual deficits; Z90.49 Acquired absence of other specified parts of digestive tract; Z98.890 Other specified postprocedural states

== ENCOUNTER 2017-06-20 19:12 | Inpatient (IN) | payer OTHER ==
[~2017-06-20] VITALS: Ht 172.7 cm; Wt 78.1 kg
[2017-06-20] MEDS ORDERED: MoRPHine SULFATE 2 MG/ML CARP IV STA (19:52)
[2017-06-20] MEDS ORDERED: ONDANSETRON INJ 2 MG/ML 2 ML VIAL IV STA (19:52)
[2017-06-20 20:57] LABS: HEMATOCRIT 65.8 % (42-52); MEAN CELL VOLUME 72.7 fL (80-100); MEAN CORPUSCULAR HEMOGLOBIN 22.1 pg (25-34); MEAN CORPUSCULAR HGB CONC 30.4 g/dl (32-36); PLATELET COUNT 134 K/uL (130-400); WHITE BLOOD COUNT 19.07 K/uL (4.8-10.8)
[2017-06-20 20:58] LABS: BASO % 0.1 %; BASO ABS # 0.02 K/uL (0-0.2); EOS % 1.5 %; EOS ABS # 0.29 K/uL (0-0.5); IG# 0.02 K/uL (0.00-0.02); LYMPH % 6.3 %; MONO % 8.4 %; NEUT % 83.6 %; NEUT ABS # 15.94 K/uL (1.4-6.5)
[2017-06-20 21:05] LABS: CALCIUM 9.8 mg/dl (8.5-10.1); CREATININE 1.39 mg/dl (0.60-1.40); POTASSIUM 4.3 mmol/L (3.5-5.1)
--- NOTE | 2017-06-20 21:08 | DIAGNOSTIC IMAGING REPORT ---
R VENOUS DOPP LOWER EXT UNILAT CLINICAL HISTORY: 77 years-old Male presenting with R lower leg pain and swelling. TECHNIQUE: Real-time grayscale and color and spectral Doppler ultrasound imaging of the veins of the right lower extremity was performed. Compression and augmentation were also utilized. COMPARISON: 03/10/2016. FINDINGS: Right: Common femoral vein: Patent. Greater saphenous vein: Patent. Deep femoral vein: Patent. Femoral vein: Occlusive or nearly occlusive filling defect consistent with thrombus in the lower/distal femoral vein. Upper/proximal and mid portions of the femoral vein patent. Popliteal vein: Occlusive thrombus. Calf veins: Occlusive thrombus throughout the calf veins. Other: None. IMPRESSION: Extensive occlusive thrombus extending from the calf veins to the lower/distal femoral vein. The report will be called/faxed according to standard departmental protocol. Electronically signed by: Luis Fernando Gutierrez M.D. 06/20/2017 9:07 PM Dictated Date/Time: 06/20/2017 9:04 PM
--- NOTE | 2017-06-20 21:31 | DIAGNOSTIC IMAGING REPORT ---
R KNEE 3 VIEWS CLINICAL HISTORY: 77 years-old Male presenting with R knee and lower leg pain. TECHNIQUE: Frontal, lateral, and sunrise views of the right knee were obtained. COMPARISON: 03/10/2016. FINDINGS: No acute fracture or malalignment. Chondrocalcinosis was better demonstrated on the prior exam. Minimal osteophytosis at the patellofemoral compartment. No joint space narrowing. Trace knee joint effusion. No significant patellar subluxation. IMPRESSION: Degenerative changes at the patellofemoral articulation with trace knee joint effusion. These findings are not significantly changed from the prior exam. No acute osseous injury. Electronically signed by: Luis Fernando Gutierrez M.D. 06/20/2017 9:30 PM Dictated Date/Time: 06/20/2017 9:29 PM
--- NOTE | 2017-06-20 21:33 | DIAGNOSTIC IMAGING REPORT ---
R TIBIA/FIBULA 2 VIEWS ROUTINE CLINICAL HISTORY: 77 years-old Male presenting with right lower leg and knee pain. TECHNIQUE: Frontal and lateral views of the right lower leg were obtained. COMPARISON: None. FINDINGS: Degenerative changes at the knee with chondrocalcinosis and minimal osteophytosis in the lateral compartment suggested. Minimal joint space loss in the lateral compartment may also be present. These findings are not well demonstrated on contemporaneous radiographs of the knee. Ankle mortise intact. No acute fracture or malalignment. Atherosclerosis. IMPRESSION: 1. No acute osseous injury of the right lower leg. 2. Degenerative changes in the lateral knee compartment better demonstrated on the current radiographs in comparison to contemporaneous knee radiographs. Electronically signed by: Luis Fernando Gutierrez M.D. 06/20/2017 9:32 PM Dictated Date/Time: 06/20/2017 9:30 PM
[2017-06-20] MEDS ORDERED: HEPARIN 25000 UNIT/500 ML D5W ONE (21:44)
[2017-06-20] MEDS ORDERED: HEPARIN SOD 5000 UNIT/0.5 ML CARP ONE (21:45)
[2017-06-20 21:49] LABS: PTT PATIENT 25.2 SECONDS (21.0-31.0)
--- NOTE | 2017-06-20 22:28 | EMERGENCY ROOM VISIT NOTE ---
ED Visit Note First contact with patient: 19:38 Chief Complaint: Severe right knee and lower leg pain. History of Present Illness: Mr. Elizondo is a 77-year-old white male who ambulates into the ED complaining of severe right knee and right lower leg pain. Historically patient reports he has a history of osteoarthritis, myocardial infarction, atrial fibrillation. Patient reports this afternoon at approximately 3 PM, 4-5 hours prior to arrival at the hospital, he was driving his car in an acute onset of severe right knee and right lower leg pain. Since that time the pain has been constant. He describes his pain as a throbbing sensation from just superior to the knee and extending down to just superior to the ankle. He rates his discomfort 10/10. His pain worsens with ambulation, palpation of the knee and palpation of the lower leg. He has not identified any alleviating factors related to the pain. He reports she has not taken any medications for pain prior to arrival at the hospital. He denies any associated symptoms including fevers, chills, sweats, skin eruptions, skin color changes, chest pain, palpitations, shortness of breath, cough, wheezing, previous blood clots, claudication, cramping, recent surgery/ inactivity/extended travel, back pain, lower extremity weakness/numbness/ tingling. Review of Systems: As noted above in history of present illness. All body systems were reviewed and found to be negative as noted above. Past Medical History: As noted above and BPH with obstruction, COPD, depression , cervical DJD, dyslipidemia, anxiety, hemolytic anemia, TIA, orthostasis, polycythemia vera, superficial thrombophlebitis, status post unspecified hernia repair, carpal tunnel syndrome, cholecystectomy and TURP. Current Medications: Medications Dose Route/Sig Max Daily Dose Days Date Category Citalopram Hydrobromide 10 Mg Tab 1 Tab PO DAILY 90 08/26/16 Reported Tamsulosin HCl 0.4 Mg Cap 0.4 Mg PO DAILY 07/23/16 Reported Proscar (Finasteride) 5 Mg Tab 5 Mg PO DAILY 08/19/14 Reported Allergies to Medications: Aspirin, warfarin, dapsone. Social History: Patient currently retired; he feels safe in his home environment ; he denies tobacco use. Physical Examination: Vital Signs: GENERAL: 77-year-old male in moderate distress due to pain, nontoxic-appearing, afebrile and hemodynamically stable. NEUROLOGICAL: Awake, alert and oriented to person, place and time. Answering questions appropriately and following commands. Good hand eye coordination. SKIN: Warm, dry and pink. No soft tissue eruptions or trauma noted. HEENT: Atraumatic and normocephalic. PERRLA. Sclera white and conjunctiva pink. No drainage from naris. Oral cavity moist and pink. Pharynx is nonerythematous or edematous. Speech normal. No lymphadenopathy. Trachea midline. No jugular venous distention. No carotid bruits. BACK: No tenderness over the bony spine. No CVA tenderness. THORAX: Lungs sounds are clear to auscultation and equal bilaterally with symmetrical chest wall. No wheezing, rales or rhonchi. No crepitus, tenderness , subcutaneous air or deformities noted. HEART: Regular rate and rhythm. No gallops, rubs or murmurs are appreciated. ABDOMEN: Flat, soft and nontender. Positive bowel sounds in all quadrants. No guarding, rigidity or organomegaly. RIGHT LOWER EXTREMITY: No gross bony deformity. No shortening or rotation. No tenderness in the hip or thigh. Diffuse tenderness over the medial, anterior lateral aspects of the knee without swelling. No laxity of the cruciate or collateral ligaments. Negative ballottement test. Negative patellar apprehension test. Decreased range of motion to 90 but he is able to reach extension. Moderate tenderness and swelling in the area of the gastrocnemius muscle. He does have a large hairy birthmark on the medial aspect of his knee and upper leg. There is no erythema or edema. I do not appreciate any palpable cords. No tenderness through the ankle or foot. No dependent edema. Full range of motion in plantar flexion, dorsiflexion, inversion and eversion of the ankle. Distal pulses are intact and equal bilaterally. He was able to distinguish light sensations through all dermatomes of the lower leg and foot. ED Course: Patient is assessed as noted above. Patient's medication list was reviewed. Laboratory Testing: Test 06/20/17 20:20 06/20/17 21:21 Range/Units White Blood Count 19.07 4.8-10.8 K/uL Red Blood Count 9.05 4.7-6.1 M/uL Hemoglobin 20.0 14.0-18.0 g/dL Hematocrit 65.8 42-52 % Mean Corpuscular Volume 72.7 80-100 fL Mean Corpuscular Hemoglobin 22.1 25-34 pg Mean Corpuscular Hemoglobin Concent 30.4 32-36 g/dl Platelet Count 134 130-400 K/uL Neutrophils (%) (Auto) 83.6 % Lymphocytes (%) (Auto) 6.3 % Monocytes (%) (Auto) 8.4 % Eosinophils (%) (Auto) 1.5 % Basophils (%) (Auto) 0.1 % Neutrophils # (Auto) 15.94 1.4-6.5 K/uL Lymphocytes # (Auto) 1.20 1.2-3.4 K/uL Monocytes # (Auto) 1.60 0.11-0.59 K/uL Eosinophils # (Auto) 0.29 0-0.5 K/uL Basophils # (Auto) 0.02 0-0.2 K/uL Immature Granulocyte % (Auto) 0.1 % Immature Granulocyte # (Auto) 0.02 0.00-0.02 K/uL Platelet Estimate DECREASED Polychromasia 1+ Macrocytosis PRESENT Spherocytes 2+ Sodium Level 137 136-145 mmol/L Potassium Level 4.3 3.5-5.1 mmol/L Chloride Level 105 98-107 mmol/L Carbon Dioxide Level 24 21-32 mmol/L Anion Gap 8.0 3-11 mmol/L Blood Urea Nitrogen 29 7-18 mg/dl Creatinine 1.39 0.60-1.40 mg/dl Est Creatinine Clear Calc Drug Dose 42.4 ml/min Estimated GFR () 55.9 Estimated GFR (Non- 48.2 BUN/Creatinine Ratio 21.1 10-20 Random Glucose 104 70-99 mg/dl Calcium Level 9.8 8.5-10.1 mg/dl Magnesium Level 2.2 1.8-2.4 mg/dl Troponin I < 0.015 0-0.045 ng/ml Chemistry Specimen Hemolysis Prothrombin Time 10.9 9.0-12.0 SECONDS Prothromb Time International Ratio 1.0 0.9-1.1 Activated Partial Thromboplast Time 25.2 21.0-31.0 SECONDS Partial Thromboplastin Ratio 1.0 Right Knee X-Rays: Was read by myself and the radiologist showing no acute fractures or dislocations. Degenerative changes were noted and a trace joint effusion was noted. This was compared to previous and no acute changes were noted. Right Tibia/Fibula X-Rays: Was read by myself and the radiologist showing no acute fractures or dislocations. Right Lower Leg Venous Doppler Ultrasound: Was reviewed by myself and read by the radiologist showing an extensive occlusive thrombus extending from the [place] to the lower/distal femoral vein. EKG: Was read by myself and reviewed with Dr. Gordillo; showing normal sinus rhythm with a ventricular rate of 100 bpm. Left atrial enlargement and left axial deviation. This was compared to previous and the left axilla enlargement and deviation were new. Also noted was widening of the QRS complex throughout the 12-lead EKG. I do not see any acute ischemic changes when compared to previous. An IV lock was initiated and patient received 2 mg of morphine IV for pain and 4 mg of Zofran IV. Patient was reassessed multiple times during his stay in the emergency department. When his ultrasound results came back he was given a 5000 units of heparin bolus subcutaneous and a heparin drip was started. Patient's case was reviewed with Dr. Gordillo; we agreed on diagnostic approach, treatment, disposition and plan. Patient's case was consulted with case management [facility] Patient was educated about today's findings. Clinical Impression: Extensive right lower leg deep vein thrombus. Leukocytosis. Decision-Making: Initially my differential diagnosis I considered knee fracture , tibia/fibula fracture, muscle strain, DVT, cellulitis, thrombophlebitis and other causes. Disposition and Plan: [facility]; please see his notes and orders for final disposition and plan.
[2017-06-20] MEDS ORDERED: ACETAMINOPHEN 325 MG TAB PO PRN (23:00)
[2017-06-21] VITALS (9 sets, daily range): BP systolic 112–138; BP diastolic 62–89; PULSE 85–97; TEMP 36.3–37.1; O2SAT 91–96; Ht 172.7 cm; Wt 78.1 kg
[2017-06-21] MEDS ORDERED: HYDROXYUREA 500 MG CAP PO STA (00:07)
[2017-06-21] MEDS ORDERED: OPTIRAY 320 IV PRN (00:15)
[2017-06-21] MEDS ORDERED: IV FLUIDS COMPLETED PRN (00:30)
[2017-06-21 02:31] LABS: CKMB 1.9 ng/ml (0.5-3.6)
[2017-06-21] MEDS: SODIUM CHLORIDE 0.9% 1000ML 1,000 ML IV SCH ×2 (03:01→14:05)
[2017-06-21 04:14] LABS: CALCIUM 9.3 mg/dl (8.5-10.1); CREATININE 1.29 mg/dl (0.60-1.40); POTASSIUM 4.1 mmol/L (3.5-5.1)
[2017-06-21 04:16] LABS: PTT PATIENT 35.9 SECONDS (21.0-31.0)
--- NOTE | 2017-06-21 04:35 | HISTORY & PHYSICAL EXAMINATION ---
DATE OF ADMISSION: 06/21/2017 TIME: 2:45 a.m. HISTORY OF PRESENT ILLNESS: The patient is a pleasant 77-year-old male with a history of TIME: 02:45 a.m. HISTORY OF PRESENT ILLNESS: The patient is a pleasant 77-year-old male with a history of polycythemia vera follows with Dr. Fenton. BPH, other problems noted below, presenting with right leg swelling noted today. He follows with Dr. Herman for primary care and Dr. Fenton for oncology/hematology. The patient's last visit with Dr. Fenton was last year and based on that record, he was taken off the hydroxyurea as the CBC was apparently getting more stable and the patient was complaining of weakness. He was advised phlebotomy and follow up every 6 months, but seems as though the patient has been lost to follow up since. The patient noted right lower leg pain and swelling starting today which prompted him to consult to the ER. At the ER, the lower extremity ultrasound did confirm the presence of extensive occlusive thrombus extending from the calf pains to the lower distal femoral pain. He was started on heparin drip and he was referred to hospitalist for admission. When I examined the patient, he is resting in bed, comfortable, not in distress, seems concerned about his DVT, but denies having any severe right leg pain. No shortness of breath, palpitations, chest pain, dizziness, nausea or vomiting. He denies having any recent history of travels, long car rides, recent surgeries, weakness and reports to be active and moves around a lot at home. Denies any other symptoms. REVIEW OF SYSTEMS: Ten systems were reviewed and negative except for the ones mentioned above. PAST MEDICAL HISTORY: History of polycythemia vera, BPH, AFib, TIA, COPD, CKD stage III, and depression. MEDICATIONS: Takes tamsulosin 0.4 mg p.o. daily, finasteride 5 mg daily, lorazepam 0.5 mg daily as needed, Celexa 10 mg daily, omeprazole 20 mg daily. PAST SURGICAL HISTORY: Carpal tunnel surgery, cystoscopy, cholecystectomy, prostate removal, repair of inguinal hernia. PERSONAL AND SOCIAL HISTORY: He is . Denies smoking, alcohol or drug use. FAMILY HISTORY: Mother, cancer. Father CVA. PHYSICAL EXAMINATION: VITAL SIGNS: Blood pressure 138/85, pulse rate of 95, respiratory rate of 24, temperature 37.1. GENERAL: The patient is awake, alert, oriented x3, not in distress, speaks in sentences. No accessory muscle use. HEAD AND NECK: Atraumatic and normocephalic head. Normal pupils. Full EOMs. No icterus. [place] conjunctivae. ENT: Grossly normal. NECK: No JVD, no lymphadenopathy, thyromegaly. HEART: Normal rate. Regular rhythm. Mild tachycardia. No murmurs. LUNGS: Clear breath sounds. No rales or wheezes. ABDOMEN: Nondistended, normal bowel sounds, soft, nontender. EXTREMITIES: Left lower extremity essentially normal. Right lower extremity, positive for mild edema and warmth of the right lower extremity. NEUROLOGIC: No gross focal motor or sensory deficits except for decreased hearing. LABS: White count 19.0, hemoglobin 20.2, platelet count 134. Chemistries: Sodium 137, potassium 4.3, chloride is 105, carbon dioxide 24, BUN is 20, creatinine is 1.39, random glucose 104, troponin less than 0.015. TSH 2.06. INR is 1.0. IMAGING: Tibia, fibula x-ray, no fractures. Knee x-ray, degenerative changes, no acute osseous injury. EKG shows heart rate of 100, normal sinus rhythm, possible left axis deviation. ASSESSMENT AND PLAN: This is a very pleasant 77-year-old male with a history of polycythemia vera, benign prostatic hypertrophy, presenting with right lower leg swelling. 1. Right lower extremity deep venous thrombosis involving the calf to the lower and distal femoral vein. Main risk factor is the presence of polycythemia vera, which appears to be controlled. Hypercoagulable workup was also sent, incomplete though as the patient heparin. Discussed the case with Dr. 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 The patient has warfarin listed for his allergy/adverse reactions, reason is bleeding. When I double checked with the patient, he denies having history of bleeding in the past, need to confirm this again with the patient to make sure. Because was tachycardic, I did do a CT angiogram, which revealed bilateral pulmonary embolism with all the lobes of right lung affected and also on the left side. Please follow up official read. Management will be heparin drip and then Coumadin. Hematology consult has been placed. 2. History of polycythemia vera usually follows with Dr. Fenton has not followed this year. Hydroxyurea was discontinued last year because apparently the CBC was improving and he was getting phlebotomy. Last one was apparently last year. Today, the patient has a hematocrit of 65, hemoglobin of 20, white count of 19. Discussed today with Dr. Carvajal, recommend to start with hydroxyurea 1 gm today and then 500 mg b.i.d. and also phlebotomy to be started tomorrow. Discussed with the IV team. Recommend to discuss this with [facility] where phlebotomies are performed. We will discuss with them in the morning for phlebotomy of the patient. Follow CBC closely. 3. EKG changes, nonspecific changes in the anteroseptal leads may be related to the tachycardia. We will repeat EKG once the patient's tachycardia has resolved for better tracings. 4. History of atrial fibrillation, not on any medications or anticoagulation before. 5. History of TIA per chart history. Denies any neurologic symptoms. 6. History of chronic pulmonary obstructive disease, no inhalers. Respiratory status is stable. 7. Benign prostatic hypertrophy. Continue tamsulosin and finasteride. No signs of urinary problems. 8. Deep venous thrombosis prophylaxis with heparin drip. The patient is currently on heparin drip for actual deep venous thrombosis or pulmonary embolism. 9. Full code according to the patient. 10. Disposition: Pending. Lives with family and at home. Anticipate return to home but may need 2-step oxygen, 2-step walk test before discharge. Will need to follow up with Dr. Herman for primary care and hematology with Dr. Fenton and also needs to be established with [facility]. [facility] SYSTEMDemetrius
[2017-06-21] MEDS ORDERED: HEPARIN IV BOLUS 6,000 UNIT in SYRINGE 0 ML IV ONE (04:45)
[2017-06-21 07:27] LABS: BASO % 0.2 %; BASO ABS # 0.04 K/uL (0-0.2); EOS % 0.7 %; EOS ABS # 0.14 K/uL (0-0.5); HEMATOCRIT 61.4 % (42-52); IG# 0.03 K/uL (0.00-0.02); LYMPH % 6.5 %; LYMPH ABS # 1.24 K/uL (1.2-3.4); MEAN CELL VOLUME 72.1 fL (80-100); MEAN CORPUSCULAR HEMOGLOBIN 22.3 pg (25-34); MEAN CORPUSCULAR HGB CONC 30.9 g/dl (32-36); MONO ABS # 1.33 K/uL (0.11-0.59); NEUT % 85.4 %; NEUT ABS # 16.24 K/uL (1.4-6.5); PLATELET COUNT 115 K/uL (130-400); WHITE BLOOD COUNT 19.02 K/uL (4.8-10.8)
--- NOTE | 2017-06-21 07:55 | DIAGNOSTIC IMAGING REPORT ---
CHEST CTA for PULMONARY ARTERIES CT DOSE: 599.78 mGy.cm HISTORY: Tachycardia. Right leg DVT. TECHNIQUE: Multiaxial CT images of the chest were performed following the intravenous administration of contrast to evaluate the pulmonary arteries. Maximal intensity projection images were also obtained. A dose lowering technique was utilized adhering to the principles of ALARA. COMPARISON STUDY: Chest CT 07/03/2013. FINDINGS: Normal caliber thoracic aorta with no evidence for dissection. The heart is normal in size. No pleural or pericardial effusion. Multiple pulmonary emboli seen throughout the right lung involving all of the lobar and majority of the segmental and subsegmental branches. There are also left lung segmental/subsegmental pulmonary emboli. No significant right-sided heart strain this time. Questionable thrombus versus mixing of blood within the right internal jugular vein. No significant mediastinal or hilar lymphadenopathy. Also questionable thrombus versus mixing of blood within the right atrium. A few small hypodense lesions within the liver with the largest in the left hepatic lobe measuring 1.5 cm. These favor cysts. The visualized spleen and right adrenal gland are unremarkable. No fractures within the visualized osseous structures. No pneumothorax. Respiratory motion artifact within the lungs. Small bilateral lower lobe densities favor atelectasis. IMPRESSION: Bilateral pulmonary emboli as described above. No evidence for right-sided heart strain at this time. There is questionable thrombus versus mixing of blood seen within the right internal jugular vein and right atrium. Consider follow-up right jugular and cardiac ultrasound for further evaluation. Electronically signed by: Dipesh Milner M.D. 06/21/2017 7:54 AM Dictated Date/Time: 06/21/2017 7:47 AM
[2017-06-21] MEDS: CITALOPRAM 20 MG TAB PO SCH (08:09)
[2017-06-21] MEDS: HYDROXYUREA 500 MG CAP PO SCH ×2 (08:11→21:32)
[2017-06-21] MEDS: TAMSULOSIN HCL 0.4 MG CAP PO SCH (08:12)
[2017-06-21] MEDS: FINASTERIDE 5 MG TAB PO SCH (08:12)
--- NOTE | 2017-06-21 10:44 | Medical Consult ---
Consultation Date of Consultation: Jun 21, 2017. Attending Physician: Neena Garner M.D. 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 Polycythemia vera He was previosuly followed by Dr Fenton - last seen in 09/2015 He was previously on hydrea but hydrea was stopped - patient states had fatigue on hydrea He was planned to undergo phlebotomies but appears he was lost to follow up He states that yesterday he noticed RLE swelling and he came to ER He denies cough or shortness of breath or severe pain in legs Hematocrit was as high as 65% He denies any recent surgery or prolonged immobility or long car ride or plane flight or any trauma to his leg venous doppler of RLE showed: Extensive occlusive thrombus extending from the calf veins to the lower/distal femoral vein. He had a CT scan chest PE protocol for tachycardia which showed Bilateral pulmonary emboli as described above. No evidence for right-sided heart strain at this time. There is questionable thrombus versus mixing of blood seen within the right internal jugular vein and right atrium. Consider follow-up right jugular and cardiac ultrasound for further evaluation. Past Medical/Surgical History PMH: polycythemia vera, COPD Atrial fibrillation, TIA, depression, BPH PSH: hernia repair, carpal tunnel surgery, prostate surgery/TURP, cystoscopy, castourethroscopy/lithotripsy, cholecystectomy Family History Cardiac arrest Heart disease Stroke denies any FH of myeloproliferative disorder father had CVA mother had cancer Social History Smoking Status: Never Smoker Alcohol Use: none Drug Use: none Marital Status: Housing Status: lives with significant other Occupation Status: retired Allergies Coded Allergies: Adhesives (Verified Allergy, Mild, PAPER TAPE-MARKED SKIN, 02/01/17) Dapsone (Verified Allergy, Unknown, methemoglobinemia, 02/01/17) Aspirin (Verified Adverse Reaction, Unknown, bleeding, 02/01/17) Warfarin (Verified Adverse Reaction, Unknown, bleeding, 02/01/17) Current Inpatient Medications Current Inpatient Medications Medications (Trade) Dose Ordered Sig/Linette Route Start Time Stop Time Status Last Admin Dose Admin Sodium Chloride 1,000 ml @ 100 mls/hr Q10H IV 06/21/17 03:00 07/21/17 02:59 06/21/17 03:01 100 MLS/HR Finasteride (Proscar Tab) 5 mg DAILY PO 06/21/17 09:00 07/21/17 08:59 06/21/17 08:12 5 MG Tamsulosin HCl (Flomax Cap) 0.4 mg DAILY PO 06/21/17 09:00 07/21/17 08:59 06/21/17 08:12 0.4 MG Citalopram Hydrobromide (celeXA TAB) 10 mg DAILY PO 06/21/17 09:00 07/21/17 08:59 06/21/17 08:09 10 MG Acetaminophen (Tylenol Tab) 650 mg Q4H PRN PO 06/20/17 23:00 07/20/17 22:59 Hydroxyurea (Hydrea Cap) 500 mg BID PO 06/21/17 09:00 07/21/17 08:59 06/21/17 08:11 500 MG Ioversol (Optiray 320) 125 ml UD PRN IV 06/21/17 00:15 06/25/17 00:14 Heparin Sodium/ Dextrose 500 ml @ 32 mls/hr [id number] PRN IV 06/21/17 00:15 07/21/17 00:14 Miscellaneous (Iv Fluids Completed) 1 ea PRN PRN N/A 06/21/17 00:30 06/21/18 00:29 Review of Systems Constitutional: + fatigue (mild), No fever, No chills, No sweats, No weight loss, No weakness Eyes: No worsening of vision, No eye pain, No diplopia ENT: No unusual epistaxis, No nasal symptoms, No sore throat, No trouble swallowing Respiratory: No cough, No sputum, No wheezing, No shortness of breath, No dyspnea on exertion, No dyspnea at rest Cardiovascular: + edema (RLE), No chest pain, No orthopnea Abdomen: No pain, No nausea, No vomiting, No diarrhea, No constipation, No GI bleeding Musculoskeletal: No joint pain, No swelling Genitourinary - Male: No hematuria, No dysuria, No urinary frequency Neurologic: No memory loss, No numbness/tingling Psychiatric: No depression symptoms, No anxiety Endocrine: + fatigue Hematologic / Lymphatic: + problem reported (acute dvt and PE ), No abnormal bleeding/bruising Integumentary: No rash, No itch, No bleeding Physical Exam Date Time Temp Pulse Resp B/P (MAP) Pulse Ox O2 Delivery O2 Flow Rate FiO2 06/21/17 08:00 Room Air 06/21/17 07:33 36.3 85 20 112/74 (87) 94 06/21/17 04:04 37.1 91 23 128/62 (84) 91 Room Air 06/21/17 04:00 Room Air 06/21/17 00:01 37.1 95 24 138/85 94 Room Air 06/20/17 23:28 111 16 141/95 93 06/20/17 23:00 111 16 141/95 93 Room Air 06/20/17 22:08 111 06/20/17 21:25 36.8 104 16 138/92 93 Room Air 06/20/17 19:25 36.4 95 18 136/78 95 Room Air General Appearance: WD/WN, no apparent distress Head: normocephalic, atraumatic Eyes: sclerae normal ENT: pharynx normal Neck: supple, no adenopathy, no JVD Respiratory/Chest: chest non-tender, lungs clear, normal breath sounds, no respiratory distress, no accessory muscle use Cardiovascular: regular rate, rhythm, no murmur Abdomen/GI: non tender, soft Extremities/Musculoskelatal: + pedal edema (on right; no edema on left) Neurologic/Psych: alert, oriented x 3, + pertinent finding (grossly nonfocal) Skin: warm/dry, no rash Lymphatic: no adenopathy Laboratory Results Last 24 Hours Test 06/20/17 20:20 06/20/17 21:21 06/20/17 23:34 06/21/17 01:51 White Blood Count 19.07 K/uL Red Blood Count 9.05 M/uL Hemoglobin 20.0 g/dL Hematocrit 65.8 % Mean Corpuscular Volume 72.7 fL Mean Corpuscular Hemoglobin 22.1 pg Mean Corpuscular Hemoglobin Concent 30.4 g/dl Platelet Count 134 K/uL Neutrophils (%) (Auto) 83.6 % Lymphocytes (%) (Auto) 6.3 % Monocytes (%) (Auto) 8.4 % Eosinophils (%) (Auto) 1.5 % Basophils (%) (Auto) 0.1 % Neutrophils # (Auto) 15.94 K/uL Lymphocytes # (Auto) 1.20 K/uL Monocytes # (Auto) 1.60 K/uL Eosinophils # (Auto) 0.29 K/uL Basophils # (Auto) 0.02 K/uL Immature Granulocyte % (Auto) 0.1 % Immature Granulocyte # (Auto) 0.02 K/uL Platelet Estimate DECREASED Polychromasia 1+ Macrocytosis PRESENT Spherocytes 2+ Sodium Level 137 mmol/L Potassium Level 4.3 mmol/L Chloride Level 105 mmol/L Carbon Dioxide Level 24 mmol/L Anion Gap 8.0 mmol/L Blood Urea Nitrogen 29 mg/dl Creatinine 1.39 mg/dl Est Creatinine Clear Calc Drug Dose 42.4 ml/min Estimated GFR () 55.9 Estimated GFR (Non- 48.2 BUN/Creatinine Ratio 21.1 Random Glucose 104 mg/dl Calcium Level 9.8 mg/dl Magnesium Level 2.2 mg/dl Troponin I < 0.015 ng/ml < 0.015 ng/ml Thyroid Stimulating Hormone (TSH) 2.060 uIu/ml Chemistry Specimen Hemolysis Prothrombin Time 10.9 SECONDS Prothromb Time International Ratio 1.0 Activated Partial Thromboplast Time 25.2 SECONDS Partial Thromboplastin Ratio 1.0 Total Creatine Kinase 40 U/L Creatine Kinase MB 1.9 ng/ml Creatine Kinase MB Ratio 4.8 Test 06/21/17 03:32 06/21/17 08:00 White Blood Count 19.02 K/uL Red Blood Count 8.52 M/uL Hemoglobin 19.0 g/dL Hematocrit 61.4 % Mean Corpuscular Volume 72.1 fL Mean Corpuscular Hemoglobin 22.3 pg Mean Corpuscular Hemoglobin Concent 30.9 g/dl Platelet Count 115 K/uL Neutrophils (%) (Auto) 85.4 % Lymphocytes (%) (Auto) 6.5 % Monocytes (%) (Auto) 7.0 % Eosinophils (%) (Auto) 0.7 % Basophils (%) (Auto) 0.2 % Neutrophils # (Auto) 16.24 K/uL Lymphocytes # (Auto) 1.24 K/uL Monocytes # (Auto) 1.33 K/uL Eosinophils # (Auto) 0.14 K/uL Basophils # (Auto) 0.04 K/uL Immature Granulocyte % (Auto) 0.2 % Immature Granulocyte # (Auto) 0.03 K/uL Polychromasia 1+ Activated Partial Thromboplast Time 35.9 SECONDS Partial Thromboplastin Ratio 1.4 Sodium Level 137 mmol/L Potassium Level 4.1 mmol/L Chloride Level 105 mmol/L Carbon Dioxide Level 25 mmol/L Anion Gap 7.0 mmol/L Blood Urea Nitrogen 26 mg/dl Creatinine 1.29 mg/dl Est Creatinine Clear Calc Drug Dose 45.6 ml/min Estimated GFR () 61.1 Estimated GFR (Non- 52.8 BUN/Creatinine Ratio 20.2 Random Glucose 111 mg/dl Calcium Level 9.3 mg/dl Creatine Kinase MB Ratio Assessment & Plan 77 year old male with MARY -2 positive Polycythemia vera with DVT/PE -Recommend continue hydrea 500mg po twice daily - I discussed B/R/A with the patient and he agree to resuming hydrea He received 100mg last night Recommend add aspirin 81mg daily Recommend GI prophylaxis Recommend heparin gtt and then overlap with coumadin for goal INR 2 to 3 for his DVT/PE. He will need close monitoring with the anticoagulation clinic as well Recommend therapeutic phlebotomy for goal hematocrit <45% Please arrange that with the IV team/[facility] nursing for phlebotomy of 500mL of whole blood today thrombocytopenia: probable from consumption from the acute VTE, peripheral smear , B12 folate immature platelet fraction ordered microcytosis: check ferritin. Avoid any iron supplementation given P vera and out goal is to reduce the hematocrit to <45% monitor for any bleeding symptoms on anticoagulation as with P vera patient can have bleeding or clotting problems He requires anticoagulation as he has VTE and also he is high risk with age >60 and history of TIA and now with VTE so requires hydrea as well F/U in the office upon discharge I discussed with Dr Graham last night and spoke with Dr Woodson today as well regarding the recommendations Thank you for allowing me to participate int eh care of this patient
[2017-06-21 11:33] LABS: CKMB 1.2 ng/ml (0.5-3.6)
[2017-06-21 12:27] LABS: PTT PATIENT 73.9 SECONDS (21.0-31.0)
[2017-06-21] MEDS: HEPARIN 25,000 UNIT/500ML D5W 500 ML IV PRN ×2 (13:00→16:42)
[2017-06-21] MEDS ORDERED: PANTOprazole SOD 40 MG TAB PO ONE (13:15)
[2017-06-21] MEDS ORDERED: ASPIRIN 81 MG ECTAB PO ONE (13:15)
[2017-06-21] MEDS: WARFARIN SOD 5 MG TAB PO SCH (18:06)
--- NOTE | 2017-06-21 18:31 | Progress Note ---
Progress Note Date of Service Jun 21, 2017. Progress Note ATTENDING NOTE: Pt admitted earlier today , please see H&P for detail Info Briefly 77 yo M with with Polycythemia Vera , stopped to follow up with Heme onc Dr Fenton almost a year back presents with Hct > 65 , Hb ~20 lower ext DVT and PE Heme onc consulted appreciate input form Dr Carvajal pt started on IV heparin gtt //Coumadin for anticoagulation s/p Phlebotomy with removal of 500 ml blood pt given Hydroxyurea bolus 1000 mg followed by continued tx with 500mg BID pt been refusing all vital checks . refusing to take meds , refused to eat food getting extremely upset with frequent lab draw for PTT monitoring developed urinary retention -ordered for [facility] attempts to get out of bed and leave at present on 1;1 sitter d/w Dr Carvajal -IV heparin and IVF D/pool to prevent pt form getting agitated Sub Lovenox 1mg/kg BID for bridge therapy took Coumadin dose tonight after much counselling Discussed with Family Grand Daughter Taylor ( ) and Andie Elizondo ) family mentions pt always been head strong , does not take meds, hate having blood work done he stopped seeing Doctors at home it is common for him to be very difficult /screaming very hard of hearing , makes him for irritated as he can not understand what is happening pt's prognosis remains poor with advanced Age /Polycythemia Vera / Thromboembolic event -PE/DVT /not receptive to therapy I did update Family other option would be DNR status and Hospice Grand Daughter -wants pt to receive all treatment as much as possible . want to follow up with Dr Carvajal in office and later make decision
[2017-06-21] MEDS ORDERED: ENOXAPARIN 1 MG/KG SQ SCH (19:45)
[2017-06-21] MEDS: ENOXAPARIN 80 MG/0.8 ML SYR SQ SCH (21:33)
[2017-06-22] VITALS (9 sets, daily range): BP systolic 107–142; BP diastolic 65–80; PULSE 73–89; TEMP 36.2–37.5; O2SAT 92–96
[2017-06-22 06:47] LABS: MEAN CORPUSCULAR HGB CONC 31.6 g/dl (32-36)
[2017-06-22 06:59] LABS: HEMATOCRIT 54.1 % (42-52); HEMOGLOBIN 17.1 g/dL (14.0-18.0); MEAN CELL VOLUME 71.3 fL (80-100); MEAN CORPUSCULAR HEMOGLOBIN 22.5 pg (25-34); RED CELL DISTRIBUTION WIDTH CV 20.5 % (11.5-14.5); RED CELL DISTRIBUTION WIDTH SD 50.5 fL (36.4-46.3); WHITE BLOOD COUNT 16.85 K/uL (4.8-10.8)
[2017-06-22 07:15] LABS: INR 1.2 (0.9-1.1)
[2017-06-22 07:19] LABS: CALCIUM 8.8 mg/dl (8.5-10.1); CREATININE 1.14 mg/dl (0.60-1.40)
[2017-06-22 07:32] LABS: PLATELET COUNT 132 K/uL (130-400)
[2017-06-22 07:39] LABS: BASO % 0.2 %; BASO ABS # 0.04 K/uL (0-0.2); EOS % 0.8 %; EOS ABS # 0.14 K/uL (0-0.5); IG# 0.05 K/uL (0.00-0.02); LYMPH ABS # 0.85 K/uL (1.2-3.4); MONO % 6.4 %; MONO ABS # 1.07 K/uL (0.11-0.59); NEUT % 87.3 %
[2017-06-22] MEDS: CITALOPRAM 20 MG TAB PO SCH (09:25)
[2017-06-22] MEDS: HYDROXYUREA 500 MG CAP PO SCH ×2 (09:27→19:42)
[2017-06-22] MEDS: FINASTERIDE 5 MG TAB PO SCH (09:27)
[2017-06-22] MEDS: PANTOprazole SOD 40 MG TAB PO SCH (09:27)
[2017-06-22] MEDS: TAMSULOSIN HCL 0.4 MG CAP PO SCH (09:27)
[2017-06-22] MEDS: ASPIRIN 81 MG ECTAB PO SCH (09:27)
[2017-06-22] MEDS: ENOXAPARIN 80 MG/0.8 ML SYR SQ SCH ×2 (09:32→19:41)
[2017-06-22] MEDS: WARFARIN SOD 5 MG TAB PO SCH (15:56)
--- NOTE | 2017-06-22 17:31 | Progress Note ---
Internal Med Progress Note Date of Service: Jun 22, 2017. Provider Documentation: SUBJECTIVE: hard to hear says want to go home denies any pain denies sob afebrile OBJECTIVE: Vital Signs-as noted below Exam: General-alert and oriented. Not in distress ENT-HArd of l hearing Neck-no neck masses supple Lungs-cta b/l no wheezing no crackles Heart-S1 and S2 heard regular rate and rthym, no murmurs Abdomen-Soft bowel sounds present non tender no distension Extremities-no edema no erythema Neuro-alert and awake moves extremities Lab data as noted below. ASSESSMENT & PLAN: DVT PROPHYLAXISBriefly 77 yo M with with Polycythemia Vera , stopped to follow up with Heme onc Dr Fenton almost a year back presents with Hct > 65 , Hb ~20 lower ext DVT and PE Acute DVT Acute PE Heme onc consulted appreciate input form Dr Carvajal currently on lovenox and coumadin INR 1.2 needs f/u with heme/onco on discharge. Polycythemia Vera s/p Phlebotomy with removal of 500 ml blood pt given Hydroxyurea bolus 1000 mg followed by continued tx with 500mg BID f/u with heme/onco History of atrial fibrillation, not on any medications or anticoagulation before.on coumadin now. History of TIA per chart history. Denies any neurologic symptoms. History of chronic pulmonary obstructive disease, no inhalers. stable currently. Benign prostatic hypertrophy. On tamsulosin and finasteride. Will monitor. DVT px on Lovenox and Coumadin DISPOSITION monitor in tele patient refusing meds family wants all tx and wants patient to be placed social service for d/c planning Vital Signs: Date Time Temp Pulse Resp B/P (MAP) Pulse Ox O2 Delivery O2 Flow Rate FiO2 06/22/17 16:00 Room Air 06/22/17 15:20 37.5 83 20 142/80 (100) 94 Room Air 06/22/17 12:00 95 Room Air 06/22/17 10:56 37.3 73 20 114/74 (87) 95 Room Air 06/22/17 08:00 95 Room Air 06/22/17 07:57 36.5 84 19 115/71 (86) 95 Room Air 06/22/17 04:00 Room Air 06/22/17 03:02 36.6 87 16 134/70 (91) 92 Room Air 06/22/17 01:02 37.1 80 18 109/65 (80) 94 Room Air 06/21/17 23:59 Room Air 06/21/17 20:00 Room Air 06/21/17 19:36 36.7 89 18 120/74 (89) 93 Room Air Lab Results: Results Past 24 Hours Test 06/22/17 06:28 Range/Units White Blood Count 16.85 4.8-10.8 K/uL Red Blood Count 7.59 4.7-6.1 M/uL Hemoglobin 17.1 14.0-18.0 g/dL Hematocrit 54.1 42-52 % Mean Corpuscular Volume 71.3 80-100 fL Mean Corpuscular Hemoglobin 22.5 25-34 pg Mean Corpuscular Hemoglobin Concent 31.6 32-36 g/dl Platelet Count 132 130-400 K/uL Neutrophils (%) (Auto) 87.3 % Lymphocytes (%) (Auto) 5.0 % Monocytes (%) (Auto) 6.4 % Eosinophils (%) (Auto) 0.8 % Basophils (%) (Auto) 0.2 % Neutrophils # (Auto) 14.70 1.4-6.5 K/uL Lymphocytes # (Auto) 0.85 1.2-3.4 K/uL Monocytes # (Auto) 1.07 0.11-0.59 K/uL Eosinophils # (Auto) 0.14 0-0.5 K/uL Basophils # (Auto) 0.04 0-0.2 K/uL RDW Standard Deviation 50.5 36.4-46.3 fL RDW Coefficient of Variation 20.5 11.5-14.5 % Immature Granulocyte % (Auto) 0.3 % Immature Granulocyte # (Auto) 0.05 0.00-0.02 K/uL Red Blood Cell Morphology Unremarkable Prothrombin Time 12.2 9.0-12.0 SECONDS Prothromb Time International Ratio 1.2 0.9-1.1 Sodium Level 136 136-145 mmol/L Potassium Level 4.0 3.5-5.1 mmol/L Chloride Level 106 98-107 mmol/L Carbon Dioxide Level 25 21-32 mmol/L Anion Gap 5.0 3-11 mmol/L Blood Urea Nitrogen 19 7-18 mg/dl Creatinine 1.14 0.60-1.40 mg/dl Est Creatinine Clear Calc Drug Dose 51.7 ml/min Estimated GFR () 71.0 Estimated GFR (Non- 61.3 BUN/Creatinine Ratio 16.4 10-20 Random Glucose 93 70-99 mg/dl Calcium Level 8.8 8.5-10.1 mg/dl
[2017-06-22] MEDS ORDERED: HALOPERIDOL LACTATE 5 MG/ML 1 ML VIAL IM STA (21:44)
[2017-06-22] MEDS ORDERED: HALOPERIDOL LACTATE 5 MG/ML 1 ML VIAL ONE (21:45)
[2017-06-22] MEDS ORDERED: HALOPERIDOL LACTATE 5 MG/ML 1 ML VIAL IM PRN (22:30)
[2017-06-23 04:17] VITALS: PULSE 94
[2017-06-23 08:03] VITALS: BP 107/67; PULSE 92; O2SAT 95
[2017-06-23] MEDS: CITALOPRAM 20 MG TAB PO SCH (08:48)
[2017-06-23] MEDS: TAMSULOSIN HCL 0.4 MG CAP PO SCH (08:48)
[2017-06-23] MEDS: FINASTERIDE 5 MG TAB PO SCH (08:48)
[2017-06-23] MEDS: ASPIRIN 81 MG ECTAB PO SCH (08:48)
[2017-06-23] MEDS: PANTOprazole SOD 40 MG TAB PO SCH (08:48)
[2017-06-23] MEDS: HYDROXYUREA 500 MG CAP PO SCH ×2 (08:48→20:42)
[2017-06-23] MEDS: ENOXAPARIN 80 MG/0.8 ML SYR SQ SCH ×2 (08:49→20:42)
[2017-06-23] MEDS ORDERED: OLANZAPINE 10 MG/2.1 ML SDV IM ONE (09:15)
[2017-06-23] MEDS ORDERED: LORAZEPAM 2 MG/ML 1 ML VIAL IV PRN (09:15)
[2017-06-23 10:08] LABS: MEAN CORPUSCULAR HGB CONC 31.8 g/dl (32-36)
[2017-06-23 10:18] LABS: INR 1.2 (0.9-1.1)
[2017-06-23 10:32] LABS: CALCIUM 8.8 mg/dl (8.5-10.1); CREATININE 1.03 mg/dl (0.60-1.40); POTASSIUM 3.9 mmol/L (3.5-5.1)
[2017-06-23 10:39] LABS: HEMATOCRIT 54.1 % (42-52); HEMOGLOBIN 17.2 g/dL (14.0-18.0); MEAN CELL VOLUME 71.7 fL (80-100); MEAN CORPUSCULAR HEMOGLOBIN 22.8 pg (25-34); RED CELL DISTRIBUTION WIDTH CV 20.7 % (11.5-14.5); RED CELL DISTRIBUTION WIDTH SD 50.8 fL (36.4-46.3); WHITE BLOOD COUNT 14.26 K/uL (4.8-10.8)
[2017-06-23 10:42] LABS: BASO % 0.4 %; BASO ABS # 0.05 K/uL (0-0.2); EOS ABS # 0.14 K/uL (0-0.5); IG# 0.06 K/uL (0.00-0.02); LYMPH % 4.1 %; LYMPH ABS # 0.59 K/uL (1.2-3.4); MONO % 5.3 %; MONO ABS # 0.75 K/uL (0.11-0.59); NEUT % 88.8 %; NEUT ABS # 12.67 K/uL (1.4-6.5); PLATELET COUNT 141 K/uL (130-400)
[2017-06-23 10:51] VITALS: BP 137/77; PULSE 83; O2SAT 96
--- NOTE | 2017-06-23 15:23 | Progress Note ---
Internal Med Progress Note Date of Service: Jun 23, 2017. Provider Documentation: SUBJECTIVE: hard to hear was agitated and received Haldol and them IM Zyprexa currently drowsy afebrile hemodynamics stable OBJECTIVE: Vital Signs-as noted below Exam: General-Drowsy. Not in distress ENT-HArd of hearing Neck-no neck masses supple Lungs-cta b/l no wheezing no crackles Heart-S1 and S2 heard regular rate and rthym, no murmurs Abdomen-Soft bowel sounds present non tender no distension Extremities-Rt lowe extremity slightly swollen and erythematous. Neuro-Drowsy moves extremities Lab data as noted below. ASSESSMENT & PLAN: Briefly 77 yo M with with Polycythemia Vera , stopped to follow up with Heme onc Dr Fenton almost a year back presents with Hct > 65 , Hb ~20 lower ext DVT and PE Acute DVT Acute PE Heme onco consulted appreciate input form Dr Carvajal currently on Lovenox and Coumadin INR 1.2 increased Coumadin dose needs f/u with heme/onco on discharge. Polycythemia Vera s/p Phlebotomy with removal of 500 ml blood pt given Hydroxyurea bolus 1000 mg followed by continued tx with 500mg BID hb 17.2 today f/u with heme/onco History of atrial fibrillation, not on any medications or anticoagulation before.on Coumadin now. History of TIA per chart history. Denies any neurologic symptoms. History of chronic pulmonary obstructive disease, no inhalers. stable currently. Benign prostatic hypertrophy. On tamsulosin and finasteride. Will monitor. Delirium im Haldol and Ativan prn also received zyprexa will monitor DVT px on Lovenox and Coumadin DISPOSITION monitor in tele patient refusing [id number] them today) family wants all tx and wants patient to be placed social service for d/c planning Vital Signs: Date Time Temp Pulse Resp B/P (MAP) Pulse Ox O2 Delivery O2 Flow Rate FiO2 06/23/17 16:00 Room Air 06/23/17 15:26 36.4 82 18 139/82 (101) 96 Room Air 06/23/17 12:06 Room Air 06/23/17 10:51 83 20 137/77 (97) 96 Room Air 06/23/17 08:05 Room Air 06/23/17 08:03 92 21 107/67 (80) 95 Room Air 06/23/17 04:17 94 20 12/31/17 04:02 Room Air 06/23/17 00:00 Room Air 06/22/17 22:57 36.2 89 19 107/68 (81) 93 Room Air 06/22/17 22:15 Room Air 06/22/17 20:00 Room Air 06/22/17 18:58 37.4 85 18 119/78 (92) 96 Room Air Lab Results: Results Past 24 Hours Test 06/23/17 09:49 Range/Units White Blood Count 14.26 4.8-10.8 K/uL Red Blood Count 7.55 4.7-6.1 M/uL Hemoglobin 17.2 14.0-18.0 g/dL Hematocrit 54.1 42-52 % Mean Corpuscular Volume 71.7 80-100 fL Mean Corpuscular Hemoglobin 22.8 25-34 pg Mean Corpuscular Hemoglobin Concent 31.8 32-36 g/dl Platelet Count 141 130-400 K/uL Neutrophils (%) (Auto) 88.8 % Lymphocytes (%) (Auto) 4.1 % Monocytes (%) (Auto) 5.3 % Eosinophils (%) (Auto) 1.0 % Basophils (%) (Auto) 0.4 % Neutrophils # (Auto) 12.67 1.4-6.5 K/uL Lymphocytes # (Auto) 0.59 1.2-3.4 K/uL Monocytes # (Auto) 0.75 0.11-0.59 K/uL Eosinophils # (Auto) 0.14 0-0.5 K/uL Basophils # (Auto) 0.05 0-0.2 K/uL RDW Standard Deviation 50.8 36.4-46.3 fL RDW Coefficient of Variation 20.7 11.5-14.5 % Immature Granulocyte % (Auto) 0.4 % Immature Granulocyte # (Auto) 0.06 0.00-0.02 K/uL Red Blood Cell Morphology Unremarkable Prothrombin Time 12.8 9.0-12.0 SECONDS Prothromb Time International Ratio 1.2 0.9-1.1 Sodium Level 138 136-145 mmol/L Potassium Level 3.9 3.5-5.1 mmol/L Chloride Level 106 98-107 mmol/L Carbon Dioxide Level 22 21-32 mmol/L Anion Gap 10.0 3-11 mmol/L Blood Urea Nitrogen 20 7-18 mg/dl Creatinine 1.03 0.60-1.40 mg/dl Est Creatinine Clear Calc Drug Dose 61.8 ml/min Estimated GFR () 80.3 Estimated GFR (Non- 69.3 BUN/Creatinine Ratio 19.0 10-20 Random Glucose 118 70-99 mg/dl Calcium Level 8.8 8.5-10.1 mg/dl
[2017-06-23 15:26] VITALS: BP 139/82; PULSE 82; TEMP 36.4; O2SAT 96
[2017-06-23] MEDS ORDERED: WARFARIN SOD 5 MG TAB PO SCH (16:00)
[2017-06-23] MEDS ORDERED: WARFARIN TAB 5 MG, WARFARIN TAB 2 MG PO SCH ×2 (16:00)
[2017-06-23 18:46] VITALS: BP 124/79; PULSE 85; TEMP 36.6; O2SAT 95
[2017-06-23 22:49] VITALS: BP 123/79; PULSE 82; TEMP 36.6; O2SAT 94
[2017-06-24 03:13] VITALS: BP 115/73; PULSE 77; TEMP 36; O2SAT 94
[2017-06-24 07:00] VITALS: BP 117/85; PULSE 79; TEMP 36.4; O2SAT 96
[2017-06-24 07:33] LABS: BASO % 0.4 %; BASO ABS # 0.05 K/uL (0-0.2); EOS % 2.2 %; EOS ABS # 0.27 K/uL (0-0.5); HEMATOCRIT 56.1 % (42-52); HEMOGLOBIN 18.6 g/dL (14.0-18.0); IG# 0.03 K/uL (0.00-0.02); LYMPH % 7.9 %; LYMPH ABS # 0.99 K/uL (1.2-3.4); MEAN CELL VOLUME 71.5 fL (80-100); MEAN CORPUSCULAR HEMOGLOBIN 23.7 pg (25-34); MEAN CORPUSCULAR HGB CONC 33.2 g/dl (32-36); MONO % 6.5 %; MONO ABS # 0.82 K/uL (0.11-0.59); NEUT % 82.8 %; NEUT ABS # 10.36 K/uL (1.4-6.5); PLATELET COUNT 194 K/uL (130-400); RED CELL DISTRIBUTION WIDTH CV 20.7 % (11.5-14.5); RED CELL DISTRIBUTION WIDTH SD 51.4 fL (36.4-46.3); WHITE BLOOD COUNT 12.52 K/uL (4.8-10.8)
[2017-06-24 07:39] LABS: INR 1.9 (0.9-1.1)
[2017-06-24 08:01] LABS: CALCIUM 8.8 mg/dl (8.5-10.1); CREATININE 1.05 mg/dl (0.60-1.40)
[2017-06-24] MEDS: FINASTERIDE 5 MG TAB PO SCH ×2 (09:00→09:49)
[2017-06-24] MEDS: CITALOPRAM 20 MG TAB PO SCH ×2 (09:00→09:49)
[2017-06-24] MEDS: TAMSULOSIN HCL 0.4 MG CAP PO SCH ×2 (09:00→09:49)
[2017-06-24] MEDS: HYDROXYUREA 500 MG CAP PO SCH ×3 (09:00→20:00)
[2017-06-24] MEDS: ASPIRIN 81 MG ECTAB PO SCH ×2 (09:00→09:49)
[2017-06-24] MEDS: PANTOprazole SOD 40 MG TAB PO SCH (09:00)
[2017-06-24] MEDS: ENOXAPARIN 80 MG/0.8 ML SYR SQ SCH ×2 (09:13→21:08)
[2017-06-24 10:58] VITALS: BP 117/77; PULSE 84; TEMP 36.9; O2SAT 97
--- NOTE | 2017-06-24 11:53 | DIAGNOSTIC IMAGING REPORT ---
SINGLE VIEW CHEST CLINICAL HISTORY: Dyspnea. FINDINGS: An AP, portable, upright chest radiograph is compared to study dated 08/26/2016 and correlated with chest CT dated 06/20/2017. The examination is degraded by portable technique and patient rotation. The heart is enlarged. There is mild congestion of the central pulmonary vasculature. Trace left pleural effusion is suspected. Bibasilar atelectasis is observed. No airspace consolidation is identified typical for pneumonia. No pneumothorax is seen. The skeletal structures are osteopenic. There are healed right-sided rib fractures. IMPRESSION: 1. Cardiomegaly with prominence of the central pulmonary vessels. Correlate clinically for evidence of mild congestive change. 2. Suspect a trace left pleural effusion.. Electronically signed by: Ceferino Barry M.D. 06/24/2017 11:51 AM Dictated Date/Time: 06/24/2017 11:49 AM
[2017-06-24 15:29] VITALS: BP 129/87; PULSE 92; TEMP 36.5; O2SAT 94
[2017-06-24] MEDS ORDERED: WARFARIN SOD 6 MG TAB PO SCH (16:00)
--- NOTE | 2017-06-24 17:30 | Progress Note ---
Internal Med Progress Note Date of Service: Jun 24, 2017. Provider Documentation: SUBJECTIVE: hard to hear calmer today took his med says he is ok denies pain afebrile OBJECTIVE: Vital Signs-as noted below Exam: General-alert and awake. Not in distress ENT-HArd of hearing Neck-no neck masses supple Lungs-cta b/l no wheezing no crackles Heart-S1 and S2 heard regular rate and rthym, no murmurs Abdomen-Soft bowel sounds present non tender no distension Extremities-Rt lower extremity slightly swollen and erythematous. Neuro-alert and awake moves extremities Lab data as noted below. ASSESSMENT & PLAN: Briefly 77 yo M with with Polycythemia Vera , stopped to follow up with Heme onc Dr Fenton almost a year back presents with Hct > 65 , Hb ~20 lower ext DVT and PE Acute DVT Acute PE Heme onco consulted appreciate input form Dr Carvajal currently on Lovenox and Coumadin INR 1.9 Coumadin 6mg needs f/u with heme/onco on discharge. Polycythemia Vera s/p Phlebotomy with removal of 500 ml blood pt given Hydroxyurea bolus 1000 mg followed by continued tx with 500mg BID hb 18.6 today s/p phlebotomy again today with 500ml taken out f/u with heme/onco History of atrial fibrillation, not on any medications or anticoagulation before.on Coumadin now. History of TIA per chart history. Denies any neurologic symptoms. History of chronic pulmonary obstructive disease, no inhalers. stable currently. Benign prostatic hypertrophy. On tamsulosin and finasteride. Will monitor. Delirium im Haldol and Ativan prn also received zyprexa calmer today will monitor. DVT px on Lovenox and Coumadin DISPOSITION Transfer to medical floor family wants all tx and wants patient to be placed social service for d/c planning Vital Signs: Date Time Temp Pulse Resp B/P (MAP) Pulse Ox O2 Delivery O2 Flow Rate FiO2 06/24/17 16:00 Room Air 06/24/17 15:29 36.5 92 20 129/87 (101) 94 Room Air 06/24/17 12:00 Room Air 06/24/17 10:58 36.9 84 19 117/77 (90) 97 Room Air 06/24/17 08:00 Room Air 06/24/17 07:00 36.4 79 19 117/85 (96) 96 Room Air 06/24/17 04:02 Room Air 06/24/17 03:13 36.0 77 18 115/73 (87) 94 Room Air 06/24/17 00:00 Room Air 06/23/17 22:49 36.6 82 16 123/79 (94) 94 Room Air 06/23/17 20:00 Room Air 06/23/17 18:46 36.6 85 18 124/79 (94) 95 Room Air Lab Results: Results Past 24 Hours Test 06/24/17 00:00 06/24/17 06:58 Range/Units Urine Color DK YELLOW Urine Appearance CLOUDY CLEAR Urine pH 5.0 4.5-7.5 Urine Specific [place] 1.025 1.000-1.030 Urine Protein 1+ NEG Urine Glucose (UA) NEG NEG Urine Ketones TRACE NEG Urine Occult Blood 2+ NEG Urine Nitrite NEG NEG Urine Bilirubin NEG NEG Urine Urobilinogen NEG NEG Urine Leukocyte Esterase SMALL NEG Urine WBC (Auto) 10-30 0-5 /hpf Urine RBC (Auto) 5-10 0-4 /hpf Urine Hyaline Casts (Auto) 0 0-5 /lpf Urine Epithelial Cells (Auto) >30 0-5 /lpf Urine Bacteria (Auto) NEG NEG Urine Renal Epithelial Cells 0-5 /lpf Urine Pathogenic Casts 0 /lpf Urine Mucus PRESENT NONE PRSENT White Blood Count 12.52 4.8-10.8 K/uL Red Blood Count 7.85 4.7-6.1 M/uL Hemoglobin 18.6 14.0-18.0 g/dL Hematocrit 56.1 42-52 % Mean Corpuscular Volume 71.5 80-100 fL Mean Corpuscular Hemoglobin 23.7 25-34 pg Mean Corpuscular Hemoglobin Concent 33.2 32-36 g/dl Platelet Count 194 130-400 K/uL Neutrophils (%) (Auto) 82.8 % Lymphocytes (%) (Auto) 7.9 % Monocytes (%) (Auto) 6.5 % Eosinophils (%) (Auto) 2.2 % Basophils (%) (Auto) 0.4 % Neutrophils # (Auto) 10.36 1.4-6.5 K/uL Lymphocytes # (Auto) 0.99 1.2-3.4 K/uL Monocytes # (Auto) 0.82 0.11-0.59 K/uL Eosinophils # (Auto) 0.27 0-0.5 K/uL Basophils # (Auto) 0.05 0-0.2 K/uL RDW Standard Deviation 51.4 36.4-46.3 fL RDW Coefficient of Variation 20.7 11.5-14.5 % Immature Granulocyte % (Auto) 0.2 % Immature Granulocyte # (Auto) 0.03 0.00-0.02 K/uL Anisocytosis PRESENT Prothrombin Time 19.3 9.0-12.0 SECONDS Prothromb Time International Ratio 1.9 0.9-1.1 Sodium Level 141 136-145 mmol/L Potassium Level 4.0 3.5-5.1 mmol/L Chloride Level 108 98-107 mmol/L Carbon Dioxide Level 24 21-32 mmol/L Anion Gap 9.0 3-11 mmol/L Blood Urea Nitrogen 21 7-18 mg/dl Creatinine 1.05 0.60-1.40 mg/dl Est Creatinine Clear Calc Drug Dose 56.1 ml/min Estimated GFR () 78.4 Estimated GFR (Non- 67.7 BUN/Creatinine Ratio 20.1 10-20 Random Glucose 89 70-99 mg/dl Calcium Level 8.8 8.5-10.1 mg/dl Microbiology Results 06/24/17 Blood Culture, Received Pending 06/24/17 Blood Culture, Received Pending 06/24/17 Urine Culture, Received Pending
[2017-06-24 23:27] VITALS: BP 116/75; PULSE 62; TEMP 36.6; O2SAT 99
[2017-06-25 07:17] VITALS: BP 122/83; PULSE 79; TEMP 36.8; O2SAT 95
[2017-06-25 07:18] LABS: BASO % 0.8 %; BASO ABS # 0.08 K/uL (0-0.2); EOS % 2.8 %; HEMATOCRIT 55.6 % (42-52); HEMOGLOBIN 18.1 g/dL (14.0-18.0); IG# 0.04 K/uL (0.00-0.02); LYMPH % 12.3 %; MEAN CELL VOLUME 71.6 fL (80-100); MEAN CORPUSCULAR HEMOGLOBIN 23.3 pg (25-34); MEAN CORPUSCULAR HGB CONC 32.6 g/dl (32-36); MONO % 4.5 %; MONO ABS # 0.48 K/uL (0.11-0.59); NEUT % 79.2 %; NEUT ABS # 8.36 K/uL (1.4-6.5); PLATELET COUNT 227 K/uL (130-400); RED CELL DISTRIBUTION WIDTH CV 20.7 % (11.5-14.5); RED CELL DISTRIBUTION WIDTH SD 51.1 fL (36.4-46.3); WHITE BLOOD COUNT 10.56 K/uL (4.8-10.8)
[2017-06-25 07:27] LABS: INR 3.2 (0.9-1.1)
[2017-06-25 07:45] LABS: CALCIUM 8.7 mg/dl (8.5-10.1); CREATININE 1.23 mg/dl (0.60-1.40)
[2017-06-25] MEDS: FINASTERIDE 5 MG TAB PO SCH (08:00)
[2017-06-25 08:01] VITALS: O2SAT 95
[2017-06-25] MEDS: CITALOPRAM 20 MG TAB PO SCH (08:58)
[2017-06-25] MEDS: TAMSULOSIN HCL 0.4 MG CAP PO SCH (08:58)
[2017-06-25] MEDS: ENOXAPARIN 80 MG/0.8 ML SYR SQ SCH ×2 (09:09→20:54)
[2017-06-25] MEDS: HYDROXYUREA 500 MG CAP PO SCH ×2 (09:09→20:54)
[2017-06-25] MEDS: PANTOprazole SOD 40 MG TAB PO SCH (10:04)
[2017-06-25] MEDS: ASPIRIN 81 MG ECTAB PO SCH (10:05)
[2017-06-25] MEDS ORDERED: LACTULOSE SYRUP 30 GM/45 ML UDP PO STA (13:56)
[2017-06-25 15:48] VITALS: BP 136/96; PULSE 110; TEMP 36.4; O2SAT 93
--- NOTE | 2017-06-25 15:50 | Progress Note ---
Internal Med Progress Note Date of Service: Jun 25, 2017. Provider Documentation: SUBJECTIVE: hard to hear says doing ok not moved bowels for last few days eating ok wants to go home OBJECTIVE: Vital Signs-as noted below Exam: General-alert and awake. Not in distress ENT-HArd of hearing Neck-no neck masses supple Lungs-cta b/l no wheezing no crackles Heart-S1 and S2 heard regular rate and rthym, no murmurs Abdomen-Soft bowel sounds present non tender no distension Extremities-Rt lower extremity slightly swollen and erythematous. Neuro-alert and awake moves extremities Lab data as noted below. ASSESSMENT & PLAN: Briefly 77 yo M with with Polycythemia Vera , stopped to follow up with Heme onc Dr Fenton almost a year back presents with Hct > 65 , Hb ~20 lower ext DVT and PE Acute DVT Acute PE Heme onco consulted appreciate input form Dr Carvajal currently on Lovenox and Coumadin INR 3.2 changed Coumadin to 3mg will d/c Lovenox after overlapping for two days in am needs f/u with heme/onco on discharge. Polycythemia Vera s/p Phlebotomy with removal of 500 ml blood pt given Hydroxyurea bolus 1000 mg followed by continued tx with 500mg BID s/p phlebotomy again on 06/24/17 with 500ml taken out f/u with heme/onco History of atrial fibrillation, not on any medications or anticoagulation before.on Coumadin now. History of TIA per chart history. Denies any neurologic symptoms. History of chronic pulmonary obstructive disease, no inhalers. stable currently. Benign prostatic hypertrophy. On tamsulosin and finasteride. Will monitor. Delirium im Haldol and Ativan prn also received Zyprexa stable now will monitor. DVT px on Lovenox and Coumadin DISPOSITION Monitor on medical floor family wants all tx and wants patient to be placed pt/ot social service for d/c planning Vital Signs: Date Time Temp Pulse Resp B/P (MAP) Pulse Ox O2 Delivery O2 Flow Rate FiO2 06/25/17 08:01 95 Room Air 06/25/17 07:17 36.8 79 18 122/83 (96) 95 Room Air 06/25/17 00:00 Room Air 06/24/17 23:27 36.6 62 18 116/75 (89) 99 Room Air 06/24/17 16:00 Room Air Lab Results: Results Past 24 Hours Test 06/25/17 06:30 Range/Units White Blood Count 10.56 4.8-10.8 K/uL Red Blood Count 7.77 4.7-6.1 M/uL Hemoglobin 18.1 14.0-18.0 g/dL Hematocrit 55.6 42-52 % Mean Corpuscular Volume 71.6 80-100 fL Mean Corpuscular Hemoglobin 23.3 25-34 pg Mean Corpuscular Hemoglobin Concent 32.6 32-36 g/dl Platelet Count 227 130-400 K/uL Neutrophils (%) (Auto) 79.2 % Lymphocytes (%) (Auto) 12.3 % Monocytes (%) (Auto) 4.5 % Eosinophils (%) (Auto) 2.8 % Basophils (%) (Auto) 0.8 % Neutrophils # (Auto) 8.36 1.4-6.5 K/uL Lymphocytes # (Auto) 1.30 1.2-3.4 K/uL Monocytes # (Auto) 0.48 0.11-0.59 K/uL Eosinophils # (Auto) 0.30 0-0.5 K/uL Basophils # (Auto) 0.08 0-0.2 K/uL RDW Standard Deviation 51.1 36.4-46.3 fL RDW Coefficient of Variation 20.7 11.5-14.5 % Immature Granulocyte % (Auto) 0.4 % Immature Granulocyte # (Auto) 0.04 0.00-0.02 K/uL Anisocytosis PRESENT Echinocytes 1+ Prothrombin Time 32.9 9.0-12.0 SECONDS Prothromb Time International Ratio 3.2 0.9-1.1 Sodium Level 138 136-145 mmol/L Potassium Level 4.0 3.5-5.1 mmol/L Chloride Level 107 98-107 mmol/L Carbon Dioxide Level 24 21-32 mmol/L Anion Gap 7.0 3-11 mmol/L Blood Urea Nitrogen 25 7-18 mg/dl Creatinine 1.23 0.60-1.40 mg/dl Est Creatinine Clear Calc Drug Dose 47.9 ml/min Estimated GFR () 64.8 Estimated GFR (Non- 55.9 BUN/Creatinine Ratio 20.6 10-20 Random Glucose 85 70-99 mg/dl Calcium Level 8.7 8.5-10.1 mg/dl
[2017-06-25] MEDS ORDERED: WARFARIN SOD 6 MG TAB PO SCH (16:00)
[2017-06-25] MEDS ORDERED: WARFARIN SOD 3 MG TAB PO SCH (16:00)
[2017-06-25] MEDS ORDERED: WARFARIN SOD 5 MG TAB PO SCH ×2 (16:00)
[2017-06-25] MEDS ORDERED: LORAZEPAM INJ 0.5 MG in SYRINGE 0.75 ML IV PRN (20:45)
[2017-06-26] MEDS: SODIUM CHLORIDE 0.9% 1000ML 1,000 ML IV SCH ×3 (06:08→17:20)
[2017-06-26 07:18] LABS: INR 4.2 (0.9-1.1)
[2017-06-26 07:43] VITALS: BP 112/73; PULSE 68; TEMP 36.9; O2SAT 96
[2017-06-26] MEDS: TAMSULOSIN HCL 0.4 MG CAP PO SCH (07:57)
[2017-06-26] MEDS: ENOXAPARIN 80 MG/0.8 ML SYR SQ SCH (07:57)
[2017-06-26] MEDS: FINASTERIDE 5 MG TAB PO SCH (07:57)
[2017-06-26] MEDS: ASPIRIN 81 MG ECTAB PO SCH (07:57)
[2017-06-26] MEDS: CITALOPRAM 20 MG TAB PO SCH (07:57)
[2017-06-26 08:01] VITALS: O2SAT 95
[2017-06-26] MEDS: HYDROXYUREA 500 MG CAP PO SCH ×2 (08:15→20:14)
[2017-06-26 08:32] LABS: MEAN CORPUSCULAR HGB CONC 31.8 g/dl (32-36)
[2017-06-26 08:48] LABS: CALCIUM 8.6 mg/dl (8.5-10.1); CREATININE 1.24 mg/dl (0.60-1.40); POTASSIUM 3.9 mmol/L (3.5-5.1)
[2017-06-26 09:38] LABS: HEMATOCRIT 53.1 % (42-52); HEMOGLOBIN 16.9 g/dL (14.0-18.0); MEAN CORPUSCULAR HEMOGLOBIN 22.9 pg (25-34); PLATELET COUNT 245 K/uL (130-400); RED CELL DISTRIBUTION WIDTH SD 51.5 fL (36.4-46.3)
[2017-06-26 09:40] LABS: BASO % 0.8 %; BASO ABS # 0.07 K/uL (0-0.2); EOS % 2.4 %; IG# 0.07 K/uL (0.00-0.02); LYMPH % 10.6 %; LYMPH ABS # 0.88 K/uL (1.2-3.4); MONO % 7.5 %; MONO ABS # 0.62 K/uL (0.11-0.59); NEUT % 77.9 %; NEUT ABS # 6.46 K/uL (1.4-6.5)
[2017-06-26 10:27] LABS: ANTICARDIOLIPID AB IGA <11 APL (< = 11)
--- NOTE | 2017-06-26 15:02 | Progress Note ---
Internal Med Progress Note Date of Service: Jun 26, 2017. Provider Documentation: SUBJECTIVE: hard to hear eating lunch wants to go home and see his grand child repeatedly asks to discharge him says he cannot get better than this he is feeling fine afebrile OBJECTIVE: Vital Signs-as noted below Exam: General-alert and awake. Not in distress ENT-HArd of hearing Neck-no neck masses supple Lungs-cta b/l no wheezing no crackles Heart-S1 and S2 heard regular rate and rthym, no murmurs Abdomen-Soft bowel sounds present non tender no distension Extremities-Rt lower extremity slightly swollen and erythematous. Neuro-alert and awake moves extremities Lab data as noted below. ASSESSMENT & PLAN: Briefly 77 yo M with with Polycythemia Vera , stopped to follow up with Heme onc Dr Fenton almost a year back presents with Hct > 65 , Hb ~20 lower ext DVT and PE Acute DVT Acute PE Heme onco consulted appreciate input form Dr Carvajal currently on Lovenox and Coumadin INR 4.2 Holding Lovenox and Coumadin needs f/u with heme/onco on discharge. Polycythemia Vera s/p Phlebotomy with removal of 500 ml blood pt given Hydroxyurea bolus 1000 mg followed by continued tx with 500mg BID s/p phlebotomy again on 06/24/17 with 500ml taken out hb 16.9 today f/u with heme/onco History of atrial fibrillation, not on any medications or anticoagulation before.on Coumadin now. History of TIA per chart history. Denies any neurologic symptoms. History of chronic pulmonary obstructive disease, no inhalers. stable currently. Benign prostatic hypertrophy. On tamsulosin and finasteride. Will monitor. Delirium im Haldol and Ativan prn also received Zyprexa stable now will monitor. DVT px Coumadin Code status Full DISPOSITION Monitor on medical floor family wants all tx and wants patient to be placed pt/ot- recommends placement social service for d/c planning Vital Signs: Date Time Temp Pulse Resp B/P (MAP) Pulse Ox O2 Delivery O2 Flow Rate FiO2 06/26/17 08:01 95 Room Air 06/26/17 07:43 36.9 68 20 112/73 (86) 96 Room Air 06/26/17 00:00 Room Air 06/25/17 16:00 Room Air 06/25/17 15:48 36.4 110 18 136/96 (109) 93 Room Air Lab Results: Results Past 24 Hours Test 06/26/17 06:36 Range/Units White Blood Count 8.30 4.8-10.8 K/uL Red Blood Count 7.38 4.7-6.1 M/uL Hemoglobin 16.9 14.0-18.0 g/dL Hematocrit 53.1 42-52 % Mean Corpuscular Volume 72.0 80-100 fL Mean Corpuscular Hemoglobin 22.9 25-34 pg Mean Corpuscular Hemoglobin Concent 31.8 32-36 g/dl Platelet Count 245 130-400 K/uL Neutrophils (%) (Auto) 77.9 % Lymphocytes (%) (Auto) 10.6 % Monocytes (%) (Auto) 7.5 % Eosinophils (%) (Auto) 2.4 % Basophils (%) (Auto) 0.8 % Neutrophils # (Auto) 6.46 1.4-6.5 K/uL Lymphocytes # (Auto) 0.88 1.2-3.4 K/uL Monocytes # (Auto) 0.62 0.11-0.59 K/uL Eosinophils # (Auto) 0.20 0-0.5 K/uL Basophils # (Auto) 0.07 0-0.2 K/uL RDW Standard Deviation 51.5 36.4-46.3 fL RDW Coefficient of Variation 21.0 11.5-14.5 % Immature Granulocyte % (Auto) 0.8 % Immature Granulocyte # (Auto) 0.07 0.00-0.02 K/uL Prothrombin Time 42.7 9.0-12.0 SECONDS Prothromb Time International Ratio 4.2 0.9-1.1 Sodium Level 138 136-145 mmol/L Potassium Level 3.9 3.5-5.1 mmol/L Chloride Level 107 98-107 mmol/L Carbon Dioxide Level 24 21-32 mmol/L Anion Gap 7.0 3-11 mmol/L Blood Urea Nitrogen 26 7-18 mg/dl Creatinine 1.24 0.60-1.40 mg/dl Est Creatinine Clear Calc Drug Dose 47.5 ml/min Estimated GFR () 64.1 Estimated GFR (Non- 55.3 BUN/Creatinine Ratio 20.8 10-20 Random Glucose 106 70-99 mg/dl Calcium Level 8.6 8.5-10.1 mg/dl
[2017-06-26 15:16] VITALS: BP 114/72; PULSE 83; TEMP 36.3; O2SAT 97
[2017-06-26 23:54] VITALS: BP 115/72; PULSE 79; TEMP 36.5; O2SAT 95
[2017-06-27 07:23] VITALS: BP 107/70; PULSE 65; TEMP 36.3; O2SAT 97
[2017-06-27] MEDS: FINASTERIDE 5 MG TAB PO SCH (08:09)
[2017-06-27] MEDS: CITALOPRAM 20 MG TAB PO SCH (08:09)
[2017-06-27] MEDS: ASPIRIN 81 MG ECTAB PO SCH (08:09)
[2017-06-27] MEDS: TAMSULOSIN HCL 0.4 MG CAP PO SCH (08:09)
[2017-06-27] MEDS: HYDROXYUREA 500 MG CAP PO SCH (08:22)
[2017-06-27 09:39] LABS: HEMATOCRIT 54.5 % (42-52); HEMOGLOBIN 17.1 g/dL (14.0-18.0)
[2017-06-27 09:59] LABS: INR 2.9 (0.9-1.1)
--- NOTE | 2017-06-27 14:15 | Progress Note ---
Internal Med Progress Note Date of Service: Jun 27, 2017. Provider Documentation: SUBJECTIVE: hard to hear ambulated in hallways wit PT says he is great and wants to go home but ok for snf for few days afebrile OBJECTIVE: Vital Signs-as noted below Exam: General-alert and awake. Not in distress ENT-HArd of hearing Neck-no neck masses supple Lungs-cta b/l no wheezing no crackles Heart-S1 and S2 heard regular rate and rthym, no murmurs Abdomen-Soft bowel sounds present non tender no distension Extremities-Rt lower extremity slightly swollen and erythematous-improving Neuro-alert and awake moves extremities Lab data as noted below. ASSESSMENT & PLAN: Briefly 77 yo M with with Polycythemia Vera , stopped to follow up with Heme onc Dr Fenton almost a year back presents with Hct > 65 , Hb ~20 lower ext DVT and PE Acute DVT Acute PE Heme onco consulted appreciate input form Dr Carvajal currently on Lovenox and Coumadin INR 4.2 on 06/26/17 Holding Lovenox and Coumadin inr 2.9 today 06/27/17 discharging on coumadin 3mg daily to check inr daily at [facility] and adjust Coumadin dose needs followup with Coumadin clinic on discharge from [facility] Needs followup with Heme/onco. Polycythemia Vera s/p Phlebotomy with removal of 500 ml blood pt given Hydroxyurea bolus 1000 mg followed by continued tx with 500mg BID s/p phlebotomy again on 06/24/17 with 500ml taken out hb 17.1 today f/u with heme/onco History of atrial fibrillation, not on any medications or anticoagulation before.on Coumadin now. History of TIA per chart history. Denies any neurologic symptoms. History of chronic pulmonary obstructive disease, no inhalers. stable currently. Benign prostatic hypertrophy. On tamsulosin and finasteride. Will monitor. Delirium im Haldol and Ativan prn also received Zyprexa stable now will monitor. discharge to [facility] today Vital Signs: Date Time Temp Pulse Resp B/P (MAP) Pulse Ox O2 Delivery O2 Flow Rate FiO2 06/27/17 08:30 Room Air 06/27/17 07:23 36.3 65 18 107/70 (82) 97 Room Air 06/27/17 00:00 Room Air 06/26/17 23:54 36.5 79 18 115/72 (86) 95 Room Air 06/26/17 16:00 Room Air 06/26/17 15:16 36.3 83 18 114/72 (86) 97 Room Air Lab Results: Results Past 24 Hours Test 06/27/17 09:01 Range/Units Hemoglobin 17.1 14.0-18.0 g/dL Hematocrit 54.5 42-52 % Prothrombin Time 30.0 9.0-12.0 SECONDS Prothromb Time International Ratio 2.9 0.9-1.1
[2017-06-27] MEDS ORDERED: HYD500 PO ×2 (14:16)
[2017-06-27] MEDS ORDERED: CMD3 PO ×2 (14:16)
[2017-06-27] MEDS ORDERED: ASPEC81 PO ×2 (14:16)
--- NOTE | 2017-06-27 14:22 | Discharge Instructions ---
Discharge Instructions Date of Service Jun 27, 2017. Admission Reason for Admission: DVT Discharge Discharge Diagnosis / Problem: Acute Right Lower extremity DVT, Acute PE Discharge Goals Goal(s): Decrease discomfort, Improve function Activity Recommendations Activity Level: Assistance Required Therapies: Physical Therapy, Occupational Therapy . Additional Information Patient informed of condition: Yes Advance Directives: Yes DNR: No Level of Care: Skilled Communicable Disease: No Prognosis: Stable Ruffin Catheter: Yes (please wean off ruffin) Instructions / Follow-Up Instructions / Follow-Up FOLLOWUP WITH FAMILY DOCTOR IN ONE WEEK FOLLOWUP WITH HEME/ONCO IN 1-2 WEEKS TO CHECK LAB: PT/INR DAILY WHILE AT [facility] AND ADJUST COUMADIN DOSING. FOLLOWUP WITH COUMADIN CLINIC ON DISCHARGE FROM [facility] Current Hospital Diet Patient's current hospital diet: Regular Diet Discharge Diet Recommended Diet: Regular Diet Pending Studies Studies pending at discharge: no Physician Orders On Transfer Special Precautions: FALL AND ASPIRATION PRECAUTIONS Vital Signs: EVERY 8HRS Medical Emergencies . Who to Call and When: Medical Emergencies: If at any time you feel your situation is an emergency, please call 911 immediately. . Non-Emergent Contact Non-Emergency issues call your: Primary Care Provider . . "Provider Documentation" section prepared by Vicente Philip. . Core Measure Problem Core Measures: VTE VTE Core Measures Date of VTE Diagnosis: Jun 20, 2017 Time of VTE Diagnosis: 21:00 Reason no anticoag overlap I/P: Treatment provided - N/A Reason no anticoag overlap @DC: Treatment provided - N/A
--- NOTE | 2017-06-27 14:27 | Discharge Summary ---
Discharge Summary Date of Service Jun 27, 2017. Discharge Summary Admission Date: Jun 21, 2017 at 12:25 Discharge Date: Jun 27, 2017 Discharge Disposition: care home facility Principal Diagnosis: ACUTE RT LOWER EXT DVT ACUTE PE POLYCYTHEMIA VERA S/P PHLEBOTOMY DELIRIUM Secondary Diagnoses/Problems: : History of polycythemia vera, BPH, AFib, TIA, COPD, CKD stage III, and depression. Procedures: RT TIBIA/FIBULA XRAY: 1. No acute osseous injury of the right lower leg. 2. Degenerative changes in the lateral knee compartment better demonstrated on the current radiographs in comparison to contemporaneous knee radiographs. RT LOWER EXTREMITY DOPPLER: Extensive occlusive thrombus extending from the calf veins to the lower/distal femoral vein. RT KNEE XRAY: Degenerative changes at the patellofemoral articulation with trace knee joint effusion. These findings are not significantly changed from the prior exam. No acute osseous injury. CTA CHEST: Bilateral pulmonary emboli as described above. No evidence for right-sided heart strain at this time. There is questionable thrombus versus mixing of blood seen within the right internal jugular vein and right atrium. Consider follow-up right jugular and cardiac ultrasound for further evaluation. Consultations: HEME/ONCO Medication Reconciliation New Medications: Aspirin (Aspirin EC Low Dose) 81 Mg Ectab 81 MG PO QAM, #30 2 Refills Hydroxyurea (Hydroxyurea) 500 Mg Cap 500 MG PO BID, #60 CAP 2 Refills Warfarin Sod (Coumadin) 3 Mg Tab 3 MG PO DAILY@16, #30 TAB 2 Refills Continued Medications: Citalopram Hydrobromide (Citalopram Hydrobromide) 10 Mg Tab 1 TAB PO DAILY for 90 Days Finasteride (Proscar) 5 Mg Tab 5 MG PO DAILY, TAB Tamsulosin HCl (Tamsulosin HCl) 0.4 Mg Cap 0.4 MG PO DAILY, #30 Admission Information HPI (per Admitting provider): : The patient is a pleasant 77-year-old male with a history of polycythemia vera follows with Dr. Fenton. BPH, other problems noted below, presenting with right leg swelling noted today. He follows with Dr. Herman for primary care and Dr. Fenton for oncology/hematology. The patient's last visit with Dr. Fenton was last year and based on that record, he was taken off the hydroxyurea as the CBC was apparently getting more stable and the patient was complaining of weakness. He was advised phlebotomy and follow up every 6 months, but seems as though the patient has been lost to follow up since. The patient noted right lower leg pain and swelling starting today which prompted him to consult to the ER. At the ER, the lower extremity ultrasound did confirm the presence of extensive occlusive thrombus extending from the calf pains to the lower distal femoral pain. He was started on heparin drip and he was referred to hospitalist for admission. When I examined the patient, he is resting in bed, comfortable, not in distress, seems concerned about his DVT, but denies having any severe right leg pain. No shortness of breath, palpitations, chest pain, dizziness, nausea or vomiting. He denies having any recent history of travels, long car rides, recent surgeries, weakness and reports to be active and moves around a lot at home. Denies any other symptoms. Physical Exam (per Admitting): VITAL SIGNS: Blood pressure 138/85, pulse rate of 95, respiratory rate of 24, temperature 37.1. GENERAL: The patient is awake, alert, oriented x3, not in distress, speaks in sentences. No accessory muscle use. HEAD AND NECK: Atraumatic and normocephalic head. Normal pupils. Full EOMs. No icterus. [place] conjunctivae. ENT: Grossly normal. NECK: No JVD, no lymphadenopathy, thyromegaly. HEART: Normal rate. Regular rhythm. Mild tachycardia. No murmurs. LUNGS: Clear breath sounds. No rales or wheezes. ABDOMEN: Nondistended, normal bowel sounds, soft, nontender. EXTREMITIES: Left lower extremity essentially normal. Right lower extremity, positive for mild edema and warmth of the right lower extremity. NEUROLOGIC: No gross focal motor or sensory deficits except for decreased hearing. Hospital Course Briefly 77 yo M with with Polycythemia Vera , stopped to follow up with Heme onc Dr Fenton almost a year back presents with Hct > 65 , Hb ~20 lower ext DVT and PE Acute DVT Acute PE Heme onco consulted appreciate input form Dr Carvajal currently on Lovenox and Coumadin INR 4.2 on 06/26/17 Holding Lovenox and Coumadin inr 2.9 today 06/27/17 discharging on coumadin 3mg daily to check inr daily at [facility] and adjust Coumadin dose needs followup with Coumadin clinic on discharge from [facility] Needs followup with Heme/onco. Polycythemia Vera s/p Phlebotomy with removal of 500 ml blood pt given Hydroxyurea bolus 1000 mg followed by continued tx with 500mg BID s/p phlebotomy again on 06/24/17 with 500ml taken out hb 17.1 today f/u with heme/onco History of atrial fibrillation, not on any medications or anticoagulation before.on Coumadin now. History of TIA per chart history. Denies any neurologic symptoms. History of chronic pulmonary obstructive disease, no inhalers. stable currently. Benign prostatic hypertrophy. On tamsulosin and finasteride. Will monitor. Delirium im Haldol and Ativan prn also received Zyprexa stable now will monitor. discharge to [facility] today Total time spent on discharge = 40MINUTES This includes examination of the patient, discharge planning, medication reconciliation, and communication with other providers. Discharge Instructions Please take this sheet to every appointment for the next month Discharge Instructions Date of Service Jun 27, 2017. Admission Reason for Admission: DVT Discharge Discharge Diagnosis / Problem: Acute Right Lower extremity DVT, Acute PE Discharge Goals Goal(s): Decrease discomfort, Improve function Activity Recommendations Activity Level: Assistance Required Therapies: Physical Therapy, Occupational Therapy . Additional Information Patient informed of condition: Yes Advance Directives: Yes DNR: No Level of Care: Skilled Communicable Disease: No Prognosis: Stable Ruffin Catheter: Yes (please wean off ruffin) Instructions / Follow-Up Instructions / Follow-Up FOLLOWUP WITH FAMILY DOCTOR IN ONE WEEK FOLLOWUP WITH HEME/ONCO IN 1-2 WEEKS TO CHECK LAB: PT/INR DAILY WHILE AT [facility] AND ADJUST COUMADIN DOSING. FOLLOWUP WITH COUMADIN CLINIC ON DISCHARGE FROM [facility] Current Hospital Diet Patient's current hospital diet: Regular Diet Discharge Diet Recommended Diet: Regular Diet Pending Studies Studies pending at discharge: no Physician Orders On Transfer Special Precautions: FALL AND ASPIRATION PRECAUTIONS Vital Signs: EVERY 8HRS Medical Emergencies . Who to Call and When: Medical Emergencies: If at any time you feel your situation is an emergency, please call 911 immediately. . Non-Emergent Contact Non-Emergency issues call your: Primary Care Provider . . "Provider Documentation" section prepared by Vicente Philip. . Core Measure Problem Core Measures: VTE VTE Core Measures Date of VTE Diagnosis: Jun 20, 2017 Time of VTE Diagnosis: 21:00 Reason no anticoag overlap I/P: Treatment provided - N/A Reason no anticoag overlap @DC: Treatment provided - N/A
[2017-06-27 15:34] VITALS: BP 135/75; PULSE 68; TEMP 36.7; O2SAT 97
== END 2017-06-27 20:00 | DRG 299 ==
LOC: C.EDB 19:14 → C.2T 22:23 → ENRESERV 22:42 → CANRESERV 22:42 → ENRESERV 22:46 → OBSVTOIN 06-21 12:25 → C.2T 06-21 16:21 → ENRESERV 06-24 18:00 → C.MS4W 06-24 18:33
PROVIDERS: ADMIT Internal Medicine; ATTEND Internal Medicine
DX: I82.4Z1 Acute embolism and thrombosis of unspecified deep veins of right distal lower extremity (principal); I26.99 Other pulmonary embolism without acute cor pulmonale; I82.411 Acute embolism and thrombosis of right femoral vein; D45 Polycythemia vera; R41.0 Disorientation, unspecified; I48.91 Unspecified atrial fibrillation; J44.9 Chronic obstructive pulmonary disease, unspecified; N40.1 Benign prostatic hyperplasia with lower urinary tract symptoms; R33.9 Retention of urine, unspecified; H91.90 Unspecified hearing loss, unspecified ear; F41.9 Anxiety disorder, unspecified; F32.9 Major depressive disorder, single episode, unspecified; I25.2 Old myocardial infarction; Z53.29 Procedure and treatment not carried out because of patient's decision for other reasons; Z86.73 Personal history of transient ischemic attack (TIA), and cerebral infarction without residual deficits; Z79.899 Other long term (current) drug therapy

== ENCOUNTER → 2017-06-28 | Outpatient (CLI) | payer OTHER ==
[~2017-06-28] MED LIST changes: +ACET-1693 PO; +ACET650S10 RE; +ASPI-320 PO; +ATV/1 PO; +BUSP5TAB59 PO; +CEFT1INJ6 IM; +CITA20TA4 PO; +CMD3 PO; +DICY10CA55 PO; +DIVA250T PO; +GABA-112 PO; +HYD500 PO; +IPRA-64 INH; +LORA2INJ19 IM; +PRLSR20 PO; +QUET1TAB30 PO; +RANI150T3 PO; +SRQ25 PO; +TAMS0.4C38 PO; +WARF3TAB6 PO
[2017-06-28 09:01] LABS: HEMATOCRIT 54.8 % (42-52); HEMOGLOBIN 17.7 g/dL (14.0-18.0); MEAN CELL VOLUME 72.5 fL (80-100); MEAN CORPUSCULAR HEMOGLOBIN 23.4 pg (25-34); MEAN CORPUSCULAR HGB CONC 32.3 g/dl (32-36); PLATELET COUNT 283 K/uL (130-400); WHITE BLOOD COUNT 8.53 K/uL (4.8-10.8)
[2017-06-28 09:10] LABS: INR 2.6 (0.9-1.1)
[2017-06-28 10:27] LABS: ALBUMIN 3.2 gm/dl (3.4-5.0); ALKALINE PHOSPHATASE 73 U/L (45-117); ALT/SGPT 43 U/L (12-78); AST/SGOT 43 U/L (15-37); BLOOD UREA NITROGEN 17 mg/dl (7-18); CALCIUM 8.6 mg/dl (8.5-10.1); CARBON DIOXIDE 22 mmol/L (21-32); CREATININE 1.13 mg/dl (0.60-1.40); GLUCOSE 90 mg/dl (70-99); POTASSIUM 3.9 mmol/L (3.5-5.1); SODIUM 138 mmol/L (136-145)
== END ==
LOC: C.LABUPNIT 08:42
PROVIDERS: ATTEND Nurse Practitioner Family
DX: N18.3 Chronic kidney disease, stage 3 (moderate) (principal); D45 Polycythemia vera; I82.409 Acute embolism and thrombosis of unspecified deep veins of unspecified lower extremity

== ENCOUNTER → 2017-07-01 | Outpatient (CLI) | payer OTHER ==
[~2017-07-01] MED LIST changes: -ACET-1693 PO; -ACET650S10 RE; +ASPEC81 PO; -ASPI-320 PO; -ATV/1 PO; -BUSP5TAB59 PO; -CEFT1INJ6 IM; -CITA20TA4 PO; -DICY10CA55 PO; -DIVA250T PO; -GABA-112 PO; -IPRA-64 INH; -LORA2INJ19 IM; -PRLSR20 PO; -QUET1TAB30 PO; -RANI150T3 PO; -SRQ25 PO; -TAMS0.4C38 PO; -WARF3TAB6 PO
[2017-07-01 09:26] LABS: INR 1.9 (0.9-1.1)
== END ==
LOC: C.LABUPHEI 08:58
PROVIDERS: ATTEND Nurse Practitioner Family
DX: I82.409 Acute embolism and thrombosis of unspecified deep veins of unspecified lower extremity (principal)

== ENCOUNTER → 2017-07-02 | Outpatient (CLI) | payer OTHER | LOC: C.LABUPHEI 08:46 | PROVIDERS: ATTEND Nurse Practitioner Family | DX: R31.9 Hematuria, unspecified (principal) ==

== ENCOUNTER → 2017-07-03 | Outpatient (CLI) | payer OTHER ==
[2017-07-03 08:14] LABS: HEMATOCRIT 49.9 % (42-52); HEMOGLOBIN 15.6 g/dL (14.0-18.0); MEAN CELL VOLUME 74.5 fL (80-100); MEAN CORPUSCULAR HEMOGLOBIN 23.3 pg (25-34); MEAN CORPUSCULAR HGB CONC 31.3 g/dl (32-36); PLATELET COUNT 313 K/uL (130-400); RED CELL DISTRIBUTION WIDTH CV 22.4 % (11.5-14.5)
[2017-07-03 08:25] LABS: INR 2.1 (0.9-1.1)
== END ==
LOC: C.LABUPHEI 07:54
PROVIDERS: ATTEND Nurse Practitioner Family
DX: N18.3 Chronic kidney disease, stage 3 (moderate) (principal); D45 Polycythemia vera; I82.409 Acute embolism and thrombosis of unspecified deep veins of unspecified lower extremity

== ENCOUNTER → 2017-07-05 | Outpatient (CLI) | payer OTHER ==
[2017-07-05 08:24] LABS: HEMOGLOBIN 15.4 g/dL (14.0-18.0)
[2017-07-05 08:33] LABS: INR 2.6 (0.9-1.1)
== END ==
LOC: C.LABUPHEI 08:12
PROVIDERS: ATTEND Nurse Practitioner Family
DX: D45 Polycythemia vera (principal); I82.409 Acute embolism and thrombosis of unspecified deep veins of unspecified lower extremity

== ENCOUNTER → 2017-07-09 | Outpatient (CLI) | payer OTHER ==
[2017-07-09 09:35] LABS: INR 2.7 (0.9-1.1)
== END ==
LOC: C.LABUPHEI 07:58
PROVIDERS: ATTEND Nurse Practitioner Family
DX: I82.409 Acute embolism and thrombosis of unspecified deep veins of unspecified lower extremity (principal)

== ENCOUNTER → 2017-07-11 | Outpatient (CLI) | payer OTHER ==
[2017-07-11 12:34] LABS: INR 2.2 (0.9-1.1)
== END | disposition home or self-care (01) ==
LOC: C.LABSPEC 11:11
PROVIDERS: ATTEND Internal Medicine
DX: Z79.01 Long term (current) use of anticoagulants (principal)

== ENCOUNTER 2017-09-04 13:26 | Emergency (ER) | payer OTHER ==
[~2017-09-04] VITALS: Ht 172.7 cm; Wt 87.2 kg
[2017-09-04 13:35] VITALS: TEMP 36.6; O2SAT 99; Ht 172.7 cm; Wt 87.2 kg
--- NOTE | 2017-09-04 13:53 | DIAGNOSTIC IMAGING REPORT ---
CHEST ONE VIEW PORTABLE CLINICAL HISTORY: chest pain dyspnea COMPARISON STUDY: 06/24/2017 FINDINGS: Minimal atelectasis left base. Lungs otherwise appear clear. Diaphragms are smooth. IMPRESSION: Minimal platelike atelectasis left base. Otherwise negative study. The above report was generated using voice recognition software. It may contain grammatical, syntax or spelling errors. Electronically signed by: Boom Verduzco M.D. 09/04/2017 1:51 PM Dictated Date/Time: 09/04/2017 1:51 PM
--- NOTE | 2017-09-04 13:56 | EMERGENCY ROOM VISIT NOTE ---
History First contact with patient: 13:30 Chief Complaint: CHEST PAIN Stated Complaint: CHEST PAIN Nursing Triage Summary: pt presents to room a10 via als from home. pt reports this am he developed chest pressure which has decreased. upon arrival to ed pt rates pain 1/10. pt reports recent hx of dvt. History of Present Illness The patient is a 77 year old male who presents to the Emergency Room with complaints of f chest pain. The pain started this morning. He describes it as going across his chest. He denies radiation to the jaw, back or arms. He cannot endorse the quality of pain. He states that the pain was initially a 3/10, not associated with exertion or rest. He states it has gradually subsided and is now nor present. He denies any pres-syncope, syncope, palpitations, shortness of breath, orthopnea or leg swelling. He denies any cough or wheezing. The patient has not had constitutional symptoms such as fevers, chills or sweats. He has been eating and drinking well. He has not had voiding issues. It is noted in EMR that he had recent been diagnosed with DVT/PE in May 2017. He denies any pleuritic pain. He has no calf pain or tenderness. Review of Systems A 10 point review of systems was negative unless stated above. 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 (10) DVT (deep venous thrombosis) (11) Dyslipidemia (12) Generalized anxiety disorder (13) Generalized osteoarthritis (14) History of hemolytic anemia (15) History of TIA (transient ischemic attack) (16) Internal hemorrhoids (17) Myocardial infarction (18) Near syncope (19) Orthostasis (20) Polycythemia vera (21) Superficial vein thrombosis Surgical Problems: (1) H/O hernia repair (2) History of carpal tunnel surgery (3) Hx of cholecystectomy (4) S/P TURP Family History Cardiac arrest Heart disease Stroke Social History Smoking Status: Unknown if Ever Smoked Alcohol Use: none Drug Use: none Marital Status: Housing Status: lives with significant other Occupation Status: retired Current/Historical Medications Scheduled Aspirin (Aspirin EC Low Dose), 81 MG PO QAM Citalopram Hydrobromide (Citalopram Hydrobromide), 10 MG PO DAILY Finasteride (Proscar), 5 MG PO DAILY Hydroxyurea (Hydroxyurea), 500 MG PO BID Omeprazole (Prilosec), 20 MG PO DAILY Tamsulosin HCl (Tamsulosin HCl), 0.4 MG PO DAILY Warfarin Sod (Coumadin), 3 MG PO DAILY@16 Allergies As noted in EMR Physical Exam Vital Signs Date Time Temp Pulse Resp B/P (MAP) Pulse Ox O2 Delivery O2 Flow Rate FiO2 09/04/17 14:18 70 18 129/84 96 Room Air 09/04/17 13:36 74 09/04/17 13:35 99 Room Air 09/04/17 13:35 99 Room Air 09/04/17 13:35 36.6 74 20 140/83 99 Room Air Pain Rating (0-10): 0 Physical Exam Constitutional: Vital signs as above were reviewed. Eyes: Pupils equal, round, and reactive to light. Extraocular muscles are intact. No proptosis. No photophobia. ENT: Mucous membranes are moist. Oropharynx is clear. No sinus tenderness. TMs are clear bilaterally. Cardiovascular: Heart with a regular rate and rhythm. Pulses are palpable and symmetric in all 4 extremities. No pedal edema appreciated. Respiratory: Lungs clear to auscultation bilaterally. No wheezes, rales, or rhonchi appreciated. No accessory muscle use. No retractions. No increased work of breathing. GI: Abdomen soft, nontender, nondistended. Normal active bowel sounds. No abdominal hernias appreciated. No rebound. No guarding. : No CVA tenderness appreciated. Musculoskeletal: No midline cervical or vertebral tenderness. No gross deformities. No bony tenderness. No calf swelling or tenderness. Integumentary: Warm, dry, no rashes appreciated. Neurological: Patient awake, alert, and oriented x 3. Lymph: No cervical lymphadenopathy appreciated. Medical Decision & Procedures ER Provider Diagnostic Interpretation: CHEST ONE VIEW PORTABLE CLINICAL HISTORY: chest pain dyspnea COMPARISON STUDY: 06/24/2017 FINDINGS: Minimal atelectasis left base. Lungs otherwise appear clear. Diaphragms are smooth. IMPRESSION: Minimal platelike atelectasis left base. Otherwise negative study. The above report was generated using voice recognition software. It may contain grammatical, syntax or spelling errors. Electronically signed by: Boom Verduzco M.D. 09/04/2017 1:51 PM Dictated Date/Time: 09/04/2017 1:51 PM The status of this report is Signed. Draft = Not yet reviewed or approved by Radiologist. Signed = Reviewed and approved by Radiologist. Laboratory Results 09/04/17 13:40 Red Blood Count 4.97, Mean Corpuscular Volume 89.3, Mean Corpuscular Hemoglobin 29.6, Mean Corpuscular Hemoglobin Concent 33.1, Neutrophils (%) (Auto) 76.8, Lymphocytes (%) (Auto) 14.9, Monocytes (%) (Auto) 5.6, Eosinophils (%) (Auto) 1.9, Basophils (%) (Auto) 0.4, Neutrophils # (Auto) 6.56, Lymphocytes # (Auto) 1.27, Monocytes # (Auto) 0.48, Eosinophils # (Auto) 0.16, Basophils # (Auto) 0.03 09/04/17 13:40 Test 09/04/17 13:40 White Blood Count 8.53 K/uL (4.8-10.8) Red Blood Count 4.97 M/uL (4.7-6.1) Hemoglobin 14.7 g/dL (14.0-18.0) Hematocrit 44.4 % (42-52) Mean Corpuscular Volume 89.3 fL (80-100) Mean Corpuscular Hemoglobin 29.6 pg (25-34) Mean Corpuscular Hemoglobin Concent 33.1 g/dl (32-36) Platelet Count 156 K/uL (130-400) Neutrophils (%) (Auto) 76.8 % Lymphocytes (%) (Auto) 14.9 % Monocytes (%) (Auto) 5.6 % Eosinophils (%) (Auto) 1.9 % Basophils (%) (Auto) 0.4 % Neutrophils # (Auto) 6.56 K/uL (1.4-6.5) Lymphocytes # (Auto) 1.27 K/uL (1.2-3.4) Monocytes # (Auto) 0.48 K/uL (0.11-0.59) Eosinophils # (Auto) 0.16 K/uL (0-0.5) Basophils # (Auto) 0.03 K/uL (0-0.2) Immature Granulocyte % (Auto) 0.4 % Immature Granulocyte # (Auto) 0.03 K/uL (0.00-0.02) Hypersegmented Polys 1+ Anisocytosis PRESENT Ovalocytes 1+ Prothrombin Time 16.1 SECONDS (9.0-12.0) Prothromb Time International Ratio 1.5 (0.9-1.1) Activated Partial Thromboplast Time 30.3 SECONDS (21.0-31.0) Partial Thromboplastin Ratio 1.2 Anion Gap 6.0 mmol/L (3-11) Est Creatinine Clear Calc Drug Dose 62.9 ml/min Estimated GFR () 79.3 Estimated GFR (Non- 68.4 BUN/Creatinine Ratio 14.3 (10-20) Calcium Level 9.0 mg/dl (8.5-10.1) Troponin I < 0.015 ng/ml (0-0.045) ECG Per My Interpretation Indication: chest pain Rhythm: normal sinus Change: no significant change (Jun 21, 2017) ED Course 13:30 - Assessed Labs 15:00 - Labs reviewed; neg trop; no new changes on EKG, CXR no acute process INR 1.5 2 mg Coumadin given; advised to take usual 3 mg dose as directed. Discussed results with patient; patient agreeable to discharge home and repeat INR tomorrow with PCP 15:15 - Discharged in stable condition Medical Decision 77 year old male with history of abrupt chest pain. Chest pain was atypical for cardiac origin. Differential includes ACS, [place], Pneumonia, PE, Pneumothorax, Pleurisy, Rib Fracture, GERD. His initial evaluation was an unchanged EKG from May 2017 and a negative troponin and X-ray. There was no acute process in the CXR. The patient has known PE and right DVT, diagnosed in May 2017. He presents already on Coumadin though INR is subtherapeutic at 1.5. Etiology of the pain is not entirely clear, though it was self-limited without red flag symptoms and in the context of a normal cardiac work-up, he can be managed further at home. Given his subtherapeutic INR, we elected to give him an additional 2 mg of Coumadin and request he take his daily 3 mg today as directed. He is to have an INR repeated tomorrow which is to be forwarded to his PCP for further management. The patient was feeling well at discharge and eager to go home. The plan was explained and he was discharged in stable condition. Head Trauma GCS Score: 15 Medication Reconcilliation Current Medication List: was personally reviewed by me Blood Pressure Screening Patient's blood pressure: Normal blood pressure Impression Primary Impression: Non-cardiac chest pain Additional Impression: Subtherapeutic international normalized ratio (INR) Ruled Out: Myocardial infarction Departure Information Dispostion Home / Self-Care Condition GOOD Referrals No Doctor, Assigned (PCP) Patient Instructions My [facility] Additional Instructions You came to the ER for chest pain. All your results regarding your heart are normal. You are taking Coumadin for clots in your lung and leg. The Coumadin level (INR ) is lower than it should be. We will give you an extra 2 mg today in the ER. Take your 3 mg dose as normally directed. You need to have repeat blood work done tomorrow to re-check this. The results of this will be sent to your family physician. If your symptoms fail to improve, acutely worsen, please seek medical attention immediately by either calling your primary care provider or going to your nearest emergency department. Otherwise, please see your primary care provider within 1 week to ensure that your symptoms continue to improve. It was a pleasure to be involved in your care and we wish you all the best. Problem Qualifiers
[2017-09-04 14:04] LABS: BASO % 0.4 %; BASO ABS # 0.03 K/uL (0-0.2); EOS % 1.9 %; EOS ABS # 0.16 K/uL (0-0.5); HEMATOCRIT 44.4 % (42-52); HEMOGLOBIN 14.7 g/dL (14.0-18.0); IG# 0.03 K/uL (0.00-0.02); LYMPH % 14.9 %; LYMPH ABS # 1.27 K/uL (1.2-3.4); MEAN CELL VOLUME 89.3 fL (80-100); MEAN CORPUSCULAR HEMOGLOBIN 29.6 pg (25-34); MEAN CORPUSCULAR HGB CONC 33.1 g/dl (32-36); MONO % 5.6 %; MONO ABS # 0.48 K/uL (0.11-0.59); NEUT % 76.8 %; NEUT ABS # 6.56 K/uL (1.4-6.5); PLATELET COUNT 156 K/uL (130-400); WHITE BLOOD COUNT 8.53 K/uL (4.8-10.8)
[2017-09-04 14:05] LABS: INR 1.5 (0.9-1.1); PTT PATIENT 30.3 SECONDS (21.0-31.0)
[2017-09-04 14:14] LABS: BLOOD UREA NITROGEN 15 mg/dl (7-18); CARBON DIOXIDE 27 mmol/L (21-32); CREATININE 1.04 mg/dl (0.60-1.40); GLUCOSE 80 mg/dl (70-99); POTASSIUM 4.2 mmol/L (3.5-5.1); SODIUM 139 mmol/L (136-145)
[2017-09-04] MEDS ORDERED: PRLSR20 PO (14:16)
--- NOTE | 2017-09-04 14:27 | EMERGENCY ROOM VISIT NOTE ---
ED Visit Note First contact with patient: 13:30 Resident Physician Supervision Note: I was present with Dr. Livingston during the history and exam. I discussed the case with the resident and agree with the findings and plan as documented in the note. Documented By: Jadiel Mast
[2017-09-04] MEDS ORDERED: WARFARIN SOD 3 MG TAB PO ONE (15:15)
[2017-09-04 15:30] VITALS: BP 126/79; PULSE 72; O2SAT 97
[2017-09-04] MEDS ORDERED: WARFARIN SOD 2 MG TAB PO ONE (15:30)
== END 2017-09-04 15:30 | disposition home or self-care (01) ==
LOC: EDBD 13:26 → C.EDA 13:27
DX: R07.89 Other chest pain (principal); I48.91 Unspecified atrial fibrillation; N40.1 Benign prostatic hyperplasia with lower urinary tract symptoms; J44.9 Chronic obstructive pulmonary disease, unspecified; F32.9 Major depressive disorder, single episode, unspecified; E11.9 Type 2 diabetes mellitus without complications; E78.5 Hyperlipidemia, unspecified; F41.9 Anxiety disorder, unspecified; M19.90 Unspecified osteoarthritis, unspecified site; Z86.73 Personal history of transient ischemic attack (TIA), and cerebral infarction without residual deficits; Z82.49 Family history of ischemic heart disease and other diseases of the circulatory system; Z82.3 Family history of stroke; Z79.82 Long term (current) use of aspirin; Z79.01 Long term (current) use of anticoagulants; Z51.81 Encounter for therapeutic drug level monitoring

== ENCOUNTER 2017-09-18 13:10 | Emergency (ER) | payer OTHER ==
[~2017-09-18] VITALS: Ht 172.7 cm; Wt 86.4 kg
[~2017-09-18 13:10] MED LIST changes: +PRLSR20 PO
[2017-09-18 13:19] VITALS: TEMP 36.8; O2SAT 97; Ht 172.7 cm; Wt 86.4 kg
[2017-09-18] MEDS ORDERED: NITROGLYCERIN 2% OINTMENT 30GM TUBE EXT STA (13:29)
[2017-09-18] MEDS ORDERED: SODIUM CHLORIDE 0.9% 500ML 500 ML IV STA (13:29)
[2017-09-18 13:42] LABS: MEAN CORPUSCULAR HGB CONC 33.2 g/dl (32-36)
[2017-09-18 13:49] LABS: HEMATOCRIT 42.5 % (42-52); HEMOGLOBIN 14.1 g/dL (14.0-18.0); MEAN CELL VOLUME 91.6 fL (80-100); MEAN CORPUSCULAR HEMOGLOBIN 30.4 pg (25-34); RED CELL DISTRIBUTION WIDTH CV 27.5 % (11.5-14.5); RED CELL DISTRIBUTION WIDTH SD 87.4 fL (36.4-46.3); WHITE BLOOD COUNT 8.93 K/uL (4.8-10.8)
--- NOTE | 2017-09-18 13:52 | DIAGNOSTIC IMAGING REPORT ---
CHEST ONE VIEW PORTABLE CLINICAL HISTORY: 77 years-old Male presenting with CP hx DVT/PE. TECHNIQUE: Portable upright AP view of the chest was obtained. COMPARISON: 09/04/2017.. FINDINGS: Cardiac silhouette mildly enlarged. No focal opacity. No large effusion or pneumothorax. Osseous structures normal. Cholecystectomy clips noted. IMPRESSION: 1. Mild cardiac enlargement. Otherwise no acute cardiopulmonary disease. Electronically signed by: Luis Fernando Gutierrez M.D. 09/18/2017 1:51 PM Dictated Date/Time: 09/18/2017 1:47 PM
[2017-09-18 13:56] LABS: INR 1.4 (0.9-1.1)
[2017-09-18 14:01] LABS: ALBUMIN 3.4 gm/dl (3.4-5.0); ALT/SGPT 19 U/L (12-78); BLOOD UREA NITROGEN 21 mg/dl (7-18); CALCIUM 8.6 mg/dl (8.5-10.1); CARBON DIOXIDE 24 mmol/L (21-32); CREATININE 1.09 mg/dl (0.60-1.40); GLUCOSE 76 mg/dl (70-99); SODIUM 139 mmol/L (136-145)
[2017-09-18 14:06] LABS: ALKALINE PHOSPHATASE 54 U/L (45-117); AST/SGOT 22 U/L (15-37); CKMB 1.4 ng/ml (0.5-3.6); TOTAL PROTEIN 6.7 gm/dl (6.4-8.2)
[2017-09-18 14:10] LABS: MEAN PLATELET VOLUME 9.7 fL (7.4-10.4); PLATELET COUNT 106 K/uL (130-400)
[2017-09-18 14:11] LABS: BASO % 0.6 %; BASO ABS # 0.05 K/uL (0-0.2); EOS % 1.5 %; EOS ABS # 0.13 K/uL (0-0.5); IG# 0.03 K/uL (0.00-0.02); LYMPH % 15.6 %; LYMPH ABS # 1.39 K/uL (1.2-3.4); MONO % 5.4 %; MONO ABS # 0.48 K/uL (0.11-0.59); NEUT % 76.6 %; NEUT ABS # 6.85 K/uL (1.4-6.5)
--- NOTE | 2017-09-18 14:22 | EMERGENCY ROOM VISIT NOTE ---
History First contact with patient: 13:18 Chief Complaint: CHEST PAIN Stated Complaint: CHEST PAIN Nursing Triage Summary: Negrito arrived via ems from home with complaints of intermittent chest pain. Mild SOB yesterday. Recent DX: DVT and PE. Patient also complaining of mild bilateral leg pain. History of Present Illness The patient is a 77 year old male who presents to the Emergency Room with complaints of chest pain radiating to his bilateral legs that started at 9 AM this morning. The patient is unable to describe the pain. It is improved since earlier this morning. He rates his pain a /10. He received aspirin in route. The patient reports a history of DVT and pulmonary embolus that was diagnosed a few months ago. He is taking warfarin. He reports taking it as prescribed. No recent changes in medications. No recent cough or fever. He denies any lightheadedness. 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 (10) DVT (deep venous thrombosis) (11) Dyslipidemia (12) Generalized anxiety disorder (13) Generalized osteoarthritis (14) History of hemolytic anemia (15) History of TIA (transient ischemic attack) (16) Internal hemorrhoids (17) Myocardial infarction (18) Near syncope (19) Orthostasis (20) Polycythemia vera (21) Superficial vein thrombosis Surgical Problems: (1) H/O hernia repair (2) History of carpal tunnel surgery (3) Hx of cholecystectomy (4) S/P TURP Family History Cardiac arrest Heart disease Stroke Social History Smoking Status: Never Smoker Alcohol Use: none Drug Use: none Marital Status: Housing Status: lives with significant other Occupation Status: retired Current/Historical Medications Scheduled Buspirone Hcl (Buspirone Hcl), 5 MG PO BID Citalopram Hydrobromide (Citalopram Hydrobromide), 10 MG PO DAILY Finasteride (Proscar), 5 MG PO DAILY Omeprazole (Prilosec), 20 MG PO DAILY Warfarin Sod (Coumadin), 3 MG PO DAILY@16 Physical Exam Vital Signs Date Time Temp Pulse Resp B/P (MAP) Pulse Ox O2 Delivery O2 Flow Rate FiO2 09/18/17 16:15 87 20 118/73 97 Room Air 09/18/17 14:39 69 18 127/78 98 Room Air 09/18/17 13:48 63 18 135/82 96 Room Air 09/18/17 13:25 67 09/18/17 13:19 97 Room Air 09/18/17 13:19 36.8 66 20 111/61 97 Room Air 09/18/17 13:19 97 Room Air Physical Exam VITALS: Vitals are noted on the nurse's note and reviewed by myself. Vital signs stable. GENERAL: 77-year-old male, in no acute distress, nondiaphoretic, well-developed well-nourished. SKIN: The skin was without rashes, erythema, edema, or bruising. HEAD: Normocephalic atraumatic. MOUTH: Slightly dry NECK: Supple without nuchal rigidity HEART: Regular rate and rhythm without murmurs gallops or rubs. LUNGS: Clear to auscultation bilaterally without wheezes, rales or rhonchi. No accessory muscle use. ABDOMEN: Positive bowel sounds x 4.Soft, nontender, without organomegaly. No guarding or rebound tenderness. MUSCULOSKELETAL: No muscle atrophy, erythema, or edema noted. Strength 5/5 throughout. NEURO: Patient was alert and oriented to person place and time. Normal sensation to touch. No focal neurological deficits. Medical Decision & Procedures ER Provider Diagnostic Interpretation: Chest x-ray . Mild cardiac enlargement. Otherwise no acute cardiopulmonary disease. Electronically signed by: Luis Fernando Gutierrez M.D. 09/18/2017 1:51 PM Dictated Date/Time: 09/18/2017 1:47 PM The status of this report is Signed. Draft = Not yet reviewed or approved by Radiologist. Signed = Reviewed and approved by Radiologist. Laboratory Results 09/18/17 13:30 Red Blood Count 4.64, Mean Corpuscular Volume 91.6, Mean Corpuscular Hemoglobin 30.4, Mean Corpuscular Hemoglobin Concent 33.2, Mean Platelet Volume 9.7, Neutrophils (%) (Auto) 76.6, Lymphocytes (%) (Auto) 15.6, Monocytes (%) (Auto) 5.4, Eosinophils (%) (Auto) 1.5, Basophils (%) (Auto) 0.6, Neutrophils # (Auto) 6.85, Lymphocytes # (Auto) 1.39, Monocytes # (Auto) 0.48, Eosinophils # (Auto) 0.13, Basophils # (Auto) 0.05 09/18/17 13:30 Test 09/18/17 13:30 White Blood Count 8.93 K/uL (4.8-10.8) Red Blood Count 4.64 M/uL (4.7-6.1) Hemoglobin 14.1 g/dL (14.0-18.0) Hematocrit 42.5 % (42-52) Mean Corpuscular Volume 91.6 fL (80-100) Mean Corpuscular Hemoglobin 30.4 pg (25-34) Mean Corpuscular Hemoglobin Concent 33.2 g/dl (32-36) Platelet Count 106 K/uL (130-400) Mean Platelet Volume 9.7 fL (7.4-10.4) Neutrophils (%) (Auto) 76.6 % Lymphocytes (%) (Auto) 15.6 % Monocytes (%) (Auto) 5.4 % Eosinophils (%) (Auto) 1.5 % Basophils (%) (Auto) 0.6 % Neutrophils # (Auto) 6.85 K/uL (1.4-6.5) Lymphocytes # (Auto) 1.39 K/uL (1.2-3.4) Monocytes # (Auto) 0.48 K/uL (0.11-0.59) Eosinophils # (Auto) 0.13 K/uL (0-0.5) Basophils # (Auto) 0.05 K/uL (0-0.2) RDW Standard Deviation 87.4 fL (36.4-46.3) RDW Coefficient of Variation 27.5 % (11.5-14.5) Immature Granulocyte % (Auto) 0.3 % Immature Granulocyte # (Auto) 0.03 K/uL (0.00-0.02) Hypersegmented Polys 1+ Platelet Estimate DECREASED Anisocytosis PRESENT Ovalocytes 1+ Prothrombin Time 14.7 SECONDS (9.0-12.0) Prothromb Time International Ratio 1.4 (0.9-1.1) Anion Gap 7.0 mmol/L (3-11) Est Creatinine Clear Calc Drug Dose 59.7 ml/min Estimated GFR () 75.0 Estimated GFR (Non- 64.7 BUN/Creatinine Ratio 18.9 (10-20) Calcium Level 8.6 mg/dl (8.5-10.1) Magnesium Level 2.2 mg/dl (1.8-2.4) Total Bilirubin 0.5 mg/dl (0.2-1) Aspartate Amino Transf (AST/SGOT) 22 U/L (15-37) Alanine Aminotransferase (ALT/SGPT) 19 U/L (12-78) Alkaline Phosphatase 54 U/L (45-117) Total Creatine Kinase 55 U/L (39-308) Creatine Kinase MB 1.4 ng/ml (0.5-3.6) Creatine Kinase MB Ratio 2.5 (0-3.0) Troponin I < 0.015 ng/ml (0-0.045) Total Protein 6.7 gm/dl (6.4-8.2) Albumin 3.4 gm/dl (3.4-5.0) Globulin 3.3 gm/dl (2.5-4.0) Albumin/Globulin Ratio 1.0 (0.9-2) Medications Administered Medications (Trade) Dose Ordered Sig/Linette Route Start Time Stop Time Status Last Admin Dose Admin Nitroglycerin (Nitroglycerin 2% Oint) 1 inch ONE STAT EXT 09/18/17 13:29 09/18/17 13:32 DC 09/18/17 13:50 1 INCH Sodium Chloride 500 ml @ 0 mls/hr Q0M STAT IV 09/18/17 13:29 09/18/17 13:32 DC 09/18/17 13:50 200 MLS/HR Warfarin Sodium (Coumadin Tab) 5 mg NOW ONCE PO 09/18/17 15:45 09/18/17 15:46 DC 09/18/17 16:14 5 MG ECG Per My Interpretation Indication: chest pain Rate (beats per minute): 64 Rhythm: normal sinus Findings: other ( Q waves in the septal leads. No significant change.) Change: no significant change ED Course Patient was seen and examined Vital signs including blood pressure were reviewed medications list was verified with patient Labs were obtained, and a saline lock was established Nitroglycerin was applied. He was given 500 cc of normal saline. An EKG was performed and reviewed by myself. He was put on a monitor. The patient was reassessed and resting comfortably. He still rated his discomfort as a 1/10. It has been unchanged. The case was discussed with my supervising physician he was in agreement with my plan. I reviewed discharge instructions the patient. They voiced understanding and had no further questions. Medical Decision Differential diagnosis: Acute myocardial infarction, cardiac arrhythmia, anemia , thyroid abnormality, pneumothorax, pneumonia, bronchitis, pericarditis, electrolyte imbalance This patient is a 77-year-old male who presents to emergency department with complaints of chest pain radiating to his legs bilaterally. The patient has a history of a recent DVT/PE. On exam, he was nontoxic in appearance. EKG shows normal sinus rhythm. No signs of acute ischemia or infarction. His troponin is negative. Chest x-ray with no acute findings. I did not suspect recurrent PE as the patient is not hypoxic, tachycardic or complaining of any shortness of breath. His INR was slightly subtherapeutic at 1.4. He was given a dose of 5 mg here. He will resume his 3 mg tablets nightly, and had a repeat INR performed on Saturday. This was thoroughly explained to the patient. He voiced understanding. He agrees to return with any worsening symptoms. This chart was completed in part utilizing [employer] Speech Voice Recognition software. Attempts were made to minimize the grammatical errors, random word insertions, pronoun errors and incomplete sentences. Any formal questions or concerns about the content, text or information contained within the body of this dictation should be directly addressed to the provider for clarification. Medication Reconcilliation Current Medication List: was personally reviewed by me Blood Pressure Screening Patient's blood pressure: Normal blood pressure Impression Primary Impression: Chest pain, atypical Departure Information Dispostion Home / Self-Care Condition GOOD Referrals No Doctor, Assigned (PCP) Patient Instructions My [facility] Additional Instructions You have been evaluated in the emergency department for pain in your chest. Your INR is low. you were given an additional dose of warfarin 5 mg in the emergency department. Please resume warfarin as prescribed at this evening Please have your blood drawn (INR) rechecked on Saturday Please follow-up with your primary care physician on Saturday Do not hesitate to return to the emergency department with any new, worsening or concerning symptoms There is a pleasure participating in your care today
[2017-09-18] MEDS ORDERED: BUSP5TAB59 PO (14:54)
--- NOTE | 2017-09-18 15:25 | EMERGENCY ROOM VISIT NOTE ---
ED Visit Note First contact with patient: 13:18 Patient was seen by our PA/MELTER LOADER. I was involved in the patient's care and did evaluate the patient myself. I was involved in the care throughout the ER stay. Patient presents with chest pain. He has had similar pain in the past. Workup here is reassuring. The pain does not appear to be cardiac. The patient is stable and can be discharged with outpatient follow-up.
[2017-09-18] MEDS ORDERED: WARFARIN SOD 5 MG TAB PO ONE (15:45)
[2017-09-18 16:15] VITALS: BP 118/73; PULSE 87; O2SAT 97
== END 2017-09-18 16:30 | disposition home or self-care (01) ==
LOC: C.EDC 13:10
DX: R07.89 Other chest pain (principal); Z86.718 Personal history of other venous thrombosis and embolism; Z86.711 Personal history of pulmonary embolism; Z79.01 Long term (current) use of anticoagulants; I48.91 Unspecified atrial fibrillation; N40.1 Benign prostatic hyperplasia with lower urinary tract symptoms; J44.9 Chronic obstructive pulmonary disease, unspecified; F32.9 Major depressive disorder, single episode, unspecified; E78.5 Hyperlipidemia, unspecified; F41.9 Anxiety disorder, unspecified; Z86.73 Personal history of transient ischemic attack (TIA), and cerebral infarction without residual deficits; I25.2 Old myocardial infarction; K64.9 Unspecified hemorrhoids; D45 Polycythemia vera; Z82.49 Family history of ischemic heart disease and other diseases of the circulatory system; Z79.899 Other long term (current) drug therapy

== ENCOUNTER → 2017-09-23 | Outpatient (CLI) | payer OTHER ==
[~2017-09-23] MED LIST changes: -ASPEC81 PO; +BUSP5TAB59 PO; -FLM4 PO; -HYD500 PO
--- NOTE | 2017-09-23 12:35 | DIAGNOSTIC IMAGING REPORT ---
Brain MRI WITHOUT CONTRAST HISTORY: NEW SUDDEN ONSET MEMORY LOSS, POSS CVA SYMPTOMS TECHNIQUE: Multiplanar multisequence MRI of the brain was performed without the use of contrast. COMPARISON STUDY: Head CT 05/24/2007. FINDINGS: There is no mass, hematoma, midline shift, or acute infarct. The paranasal sinuses are clear. The mastoid air cells are clear. The ventricles and sulci demonstrate moderate age-related involutional changes. Scattered foci of T2 hyperintensity seen within the periventricular and subcortical white matter are nonspecific but suggestive of mild microvascular ischemic changes. The major vascular flow voids at the skull base are well-maintained. Incidental note is made of a partially empty sella. IMPRESSION: No acute intracranial abnormality. Scattered foci of T2 hyperintensity seen within the periventricular and subcortical white matter are nonspecific but favor microvascular ischemic change. Electronically signed by: Dipesh Milner M.D. 09/23/2017 12:34 PM Dictated Date/Time: 09/23/2017 12:17 PM
== END | disposition home or self-care (01) ==
LOC: C.MRI 11:25
PROVIDERS: ATTEND Internal Medicine
DX: R41.3 Other amnesia (principal)

== ENCOUNTER 2017-10-18 14:08 | Emergency (ER) | payer OTHER ==
[~2017-10-18] VITALS: Ht 172.7 cm; Wt 84.5 kg
[2017-10-18 14:10] VITALS: TEMP 36.6; Ht 172.7 cm; Wt 84.5 kg
--- NOTE | 2017-10-18 14:30 | EMERGENCY ROOM VISIT NOTE ---
History Report prepared by Bhupinder: Trinidad Marino Under the Supervision of: Gracy LeaO. 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 He states he was seen at the hospital a few weeks ago where he was diagnosed with blood clots in his legs. He reports the pain starts from his knees down to his toes and describes it as intermittent. He also has middle abdominal pain and lying down is a relieving factor. He notes he has never taken any blood thinners and he has no history of blood clots. Pt also denies headache, change in vision, fevers, chest pain, shortness of breath, nausea, vomiting, diarrhea, pain with urination, and melena. He has a history of DVTs and a PEs. Patient is a difficult and poor historian. On review of EMR, pt recently diagnosed with dvt and PE. Is on coumadin according to dc summary. 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 A total of 10 systems reviewed and were otherwise negative. 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 (4) Bullous pemphigoid (5) COPD (chronic obstructive pulmonary disease) (6) COPD, mild (7) Depression (8) Diarrhea (9) DJD (degenerative joint disease) of cervical spine (10) DVT (deep venous thrombosis) (11) Dyslipidemia (12) Generalized anxiety disorder (13) Generalized osteoarthritis (14) History of hemolytic anemia (15) History of TIA (transient ischemic attack) (16) Internal hemorrhoids (17) Myocardial infarction (18) Near syncope (19) Orthostasis (20) Polycythemia vera (21) Superficial vein thrombosis Surgical Problems: (1) H/O hernia repair (2) History of carpal tunnel surgery (3) Hx of cholecystectomy (4) S/P TURP Family History Cardiac arrest Heart disease Stroke Social History Smoking Status: Never Smoker Alcohol Use: none Drug Use: none Marital Status: Housing Status: lives with significant other Occupation Status: retired Current/Historical Medications Scheduled Buspirone Hcl (Buspirone Hcl), 5 MG PO BID Citalopram Hydrobromide (Citalopram Hydrobromide), 10 MG PO DAILY Finasteride (Proscar), 5 MG PO DAILY Omeprazole (Prilosec), 20 MG PO DAILY Warfarin Sod (Coumadin), 3 MG PO DAILY@16 Allergies Coded Allergies: Adhesives (Verified Allergy, Mild, PAPER TAPE-MARKED SKIN, 09/18/17) Dapsone (Verified Allergy, Unknown, methemoglobinemia, 09/18/17) Aspirin (Verified Adverse Reaction, Unknown, bleeding, 09/18/17) Warfarin (Verified Adverse Reaction, Unknown, bleeding, 09/18/17) Physical Exam Vital Signs Date Time Temp Pulse Resp B/P (MAP) Pulse Ox O2 Delivery O2 Flow Rate FiO2 10/18/17 18:07 64 20 146/84 98 Room Air 10/18/17 16:09 62 20 141/81 97 Room Air 10/18/17 14:10 36.6 71 18 130/78 96 Room Air Physical Exam GENERAL: alert, well appearing, well nourished, no distress, non-toxic. Hard of hearing. EYE EXAM: normal conjunctiva, PERRL and EOM's grossly intact OROPHARYNX: no exudate, no erythema, lips, buccal mucosa, and tongue normal and mucous membranes are moist NECK: supple, no nuchal rigidity, no adenopathy, non-tender LUNGS: Clear to auscultation. Normal chest wall mechanics HEART: no murmurs, S1 normal and S2 normal, no reproducible chest wall pain ABDOMEN: abdomen soft, non-tender, normo-active bowel sounds, no masses, no rebound or guarding. Dull to percussion. No pulsatile mass. BACK: Back is symmetrical on inspection and there is no deformity, no midline tenderness, no CVA tenderness. SKIN: no rashes and no bruising UPPER EXTREMITIES: upper extremities are grossly normal. FROM, nml pulses. LOWER EXTREMITIES: Bilaterally no edema and no reproducible pain. No calf tenderness. Nml pulses. FROM. NEURO EXAM: Normal sensorium, cranial nerves II-XII grossly intact, normal speech, no gross weakness of arms, no gross weakness of legs. Medical Decision & Procedures ER Provider Diagnostic Interpretation: Radiology results have been interpreted by the radiologist and reviewed by me. CT ANGIOGRAM OF THE CHEST CLINICAL HISTORY: Dyspnea. COMPARISON STUDY: Chest x-ray dated 09/18/2017. Chest CT scans dated 06/20/2017 and 07/03/2013. TECHNIQUE: Following the IV administration of 94 cc of Optiray 320, CT angiogram of the chest was performed from the upper abdomen to the thoracic inlet utilizing the pulmonary embolus protocol. Images are reviewed in the axial, sagittal, and coronal planes. 3-D MIPS images are created and assessed. IV contrast was administered without complication. A dose lowering technique was utilized adhering to the principles of ALARA. The examination is modestly degraded by motion artifact. FINDINGS: Thyroid: Imaged portions of the thyroid gland are normal in size and attenuation. Thoracic aorta: The thoracic aorta is normal in caliber and demonstrates bovine variant arch anatomy. No dissection is seen. Pulmonary vasculature: The pulmonary trunk is normal in caliber. There are no filling defects identified in main, lobar, or segmental pulmonary branches to suggest pulmonary embolus. Heart: The heart is enlarged and without pericardial effusion. Lungs and pleural spaces: Evaluation of lung parenchyma is modestly degraded by motion artifact. Apical scarring is noted. There is no airspace consolidation typical for pneumonia or pleural effusion. Secretions are noted in the trachea. Dependent atelectasis is observed. Mediastinum: There is no mediastinal lymphadenopathy. Juanita: Clear. Axillae: There is no axillary lymphadenopathy. Upper abdomen: Cholecystectomy clips are noted. There is a small hiatal hernia. A 1.8 cm cyst is noted in the left hepatic lobe. Skeletal structures: The skeletal structures are osteopenic. No lytic or blastic bony lesions are seen. Mild degenerative change is noted in the shoulders and thoracic spine. IMPRESSION: 1. There is no evidence of pulmonary embolus in the main, lobar, or segmental pulmonary arteries. 2. There is no airspace consolidation or pleural effusion. 3. Cardiomegaly. 4. Additional findings as above. Electronically signed by: Ceferino Barry M.D. 10/18/2017 4:23 PM ABD/PELVIS IV CONTRAST ONLY CT DOSE: 1507.31 mGy.cm HISTORY: Pain abd pain, hx pe, low INR TECHNIQUE: Multiaxial CT images of the abdomen and pelvis were performed following the use of intravenous contrast. A dose lowering technique was utilized adhering to the principles of ALARA. COMPARISON STUDY: 08/30/2016 FINDINGS: Several small hepatic cysts. Spleen is uniform. Pancreas is unremarkable. Graft several small left renal cyst. Extrarenal pelves bilaterally. No evidence for hydronephrosis. Nonobstructive bowel pattern. Prostatic enlargement. Bladder is midline. No free fluid within the pelvic cul-de-sac. No evidence for an obstructing urinary tract calculus. IMPRESSION: 1. Several small left renal cyst. 2. Abdomen and pelvis is otherwise negative for acute abnormality. 3. Enlargement of the prostate.. The above report was generated using voice recognition software. It may contain grammatical, syntax or spelling errors. Electronically signed by: Boom Verduzco M.D. 10/18/2017 4:16 PM VENOUS DOPPLER LWR EXT BILA HISTORY: Pain. Edema. pain, hx dvt, low INR COMPARISON STUDY: None. FINDINGS: Findings consistent with acute deep venous thrombosis involving the right femoral vein distally as well as proximal popliteal vein. Compressibility is compromise. All remaining venous structures are unremarkable. IMPRESSION: Focal acute deep venous thrombosis involving the proximal right popliteal vein as well as distal right femoral vein The above report was generated using voice recognition software. It may contain grammatical, syntax or spelling errors. Electronically signed by: Boom Verduzco M.D. Laboratory Results 10/18/17 14:40 Red Blood Count 4.37, Mean Corpuscular Volume 95.7, Mean Corpuscular Hemoglobin 30.9, Mean Corpuscular Hemoglobin Concent 32.3, Mean Platelet Volume 10.0, Neutrophils (%) (Auto) 75.2, Lymphocytes (%) (Auto) 17.0, Monocytes (%) (Auto) 5.8, Eosinophils (%) (Auto) 1.3, Basophils (%) (Auto) 0.4, Neutrophils # (Auto) 5.69, Lymphocytes # (Auto) 1.29, Monocytes # (Auto) 0.44, Eosinophils # (Auto) 0.10, Basophils # (Auto) 0.03 10/18/17 14:40 Test 10/18/17 14:40 White Blood Count 7.57 K/uL (4.8-10.8) Red Blood Count 4.37 M/uL (4.7-6.1) Hemoglobin 13.5 g/dL (14.0-18.0) Hematocrit 41.8 % (42-52) Mean Corpuscular Volume 95.7 fL (80-100) Mean Corpuscular Hemoglobin 30.9 pg (25-34) Mean Corpuscular Hemoglobin Concent 32.3 g/dl (32-36) Platelet Count 121 K/uL (130-400) Mean Platelet Volume 10.0 fL (7.4-10.4) Neutrophils (%) (Auto) 75.2 % Lymphocytes (%) (Auto) 17.0 % Monocytes (%) (Auto) 5.8 % Eosinophils (%) (Auto) 1.3 % Basophils (%) (Auto) 0.4 % Neutrophils # (Auto) 5.69 K/uL (1.4-6.5) Lymphocytes # (Auto) 1.29 K/uL (1.2-3.4) Monocytes # (Auto) 0.44 K/uL (0.11-0.59) Eosinophils # (Auto) 0.10 K/uL (0-0.5) Basophils # (Auto) 0.03 K/uL (0-0.2) RDW Standard Deviation 64.2 fL (36.4-46.3) RDW Coefficient of Variation 18.4 % (11.5-14.5) Immature Granulocyte % (Auto) 0.3 % Immature Granulocyte # (Auto) 0.02 K/uL (0.00-0.02) Prothrombin Time 16.3 SECONDS (9.0-12.0) Prothromb Time International Ratio 1.6 (0.9-1.1) Anion Gap 4.0 mmol/L (3-11) Est Creatinine Clear Calc Drug Dose 51.1 ml/min Estimated GFR () 62.9 Estimated GFR (Non- 54.3 BUN/Creatinine Ratio 11.7 (10-20) Calcium Level 8.4 mg/dl (8.5-10.1) Magnesium Level 2.3 mg/dl (1.8-2.4) Total Bilirubin 0.6 mg/dl (0.2-1) Aspartate Amino Transf (AST/SGOT) 31 U/L (15-37) Alanine Aminotransferase (ALT/SGPT) 22 U/L (12-78) Alkaline Phosphatase 49 U/L (45-117) Troponin I < 0.015 ng/ml (0-0.045) Pro-B-Type Natriuretic Peptide 131 pg/ml (0-1800) Total Protein 7.0 gm/dl (6.4-8.2) Albumin 3.6 gm/dl (3.4-5.0) Globulin 3.4 gm/dl (2.5-4.0) Albumin/Globulin Ratio 1.1 (0.9-2) Laboratory results per my review. Medications Administered Medications (Trade) Dose Ordered Sig/Linette Route Start Time Stop Time Status Last Admin Dose Admin Enoxaparin Sodium (Lovenox Inj) 80 mg NOW STAT SQ 10/18/17 17:39 10/18/17 17:40 DC 10/18/17 18:05 80 MG Warfarin Sodium (Coumadin Tab) 5 mg NOW ONCE PO 10/18/17 17:45 10/18/17 17:46 DC 10/18/17 18:04 5 MG ECG Per My Interpretation Indication: abdominal pain Rate (beats per minute): 61 Rhythm: sinus rhythm Findings: no acute ischemic change, no ectopy, other (normal axis, normal intervals) ED Course 1419: The patient was evaluated in room B5. A complete history and physical exam was performed. 1739: Lovenox Inj 80 mg SQ 1745: Coumadin Tab 5 mg PO Coumadin Tab 5 mg PO 1814: Tylenol Tab 650 mg PO 1818: Upon reevaluation, the patient is feeling better. I discussed the findings and the treatment plan with the patient. He verbalizes agreement and understanding. He was discharged home. Medical Decision Differential diagnosis: Etiologies such as appendicitis, diverticulitis, PUD, biliary pathology, UTI, pancreatitis, obstruction, mesenteric ischemia, aortic pathology, infections, inflammatory bowel disease, renal colic, as well as others were entertained. Pt's INR subtherapeutic, however CT c/a/p reassuring, other labs reassuring. DVT noted in LLE - similar location to prior recent US. VS stable. Pt given dose of lovenox and additional dose of coumadin. Discussed with him his DVT, his use of coumadin, need for f/u to recheck his INR, reasons to return. 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 Pt ambulatory here with steady gait, tolerating po, and without any apparent distress or pain. Given pt's difficulty with history regarding his upper abd pain that he said he had the last time he was here, labs and imaging performed. Bedside PE didn't reveal any tenderness to palpation. Medication Reconcilliation Current Medication List: was personally reviewed by me Blood Pressure Screening Patient's blood pressure: Normal blood pressure Blood pressure disposition: Did not require urgent referral Impression Primary Impression: Bilateral leg pain Additional Impressions: DVT (deep venous thrombosis) Subtherapeutic international normalized ratio (INR) Scribe Attestation The scribe's documentation has been prepared under my direction and personally reviewed by me in its entirety. I confirm that the note above accurately reflects all work, treatment, procedures, and medical decision making performed by me. Departure Information Dispostion Home / Self-Care Referrals Ajith Herman D.O. (PCP) Forms HOME CARE DOCUMENTATION FORM, IMPORTANT VISIT INFORMATION Patient Instructions My [facility] Additional Instructions Please take all of your medications as prescribed including your Coumadin. Your INR tonight was 1.6. You were given an extra dose of Coumadin to try and get you back up over 2. Your INR needs to be rechecked the beginning of next week to make sure it is back between 2 and 3. He may use Tylenol as needed for pain. If you have any worsening pain, develop numbness or tingling, noticed discoloration of your extremities, develop chest pain or trouble breathing, fevers or chills, or you have any other new concerns, please return the emergency room. Problem Qualifiers Additional Impressions: DVT (deep venous thrombosis) DVT location: lower extremity Affected thrombotic vein of extremity: unspecified vein of extremity Chronicity: acute Laterality: right Qualified Codes: I82.401 - Acute embolism and thrombosis of unspecified deep veins of right lower extremity
[2017-10-18 15:01] LABS: BASO % 0.4 %; BASO ABS # 0.03 K/uL (0-0.2); EOS % 1.3 %; HEMATOCRIT 41.8 % (42-52); HEMOGLOBIN 13.5 g/dL (14.0-18.0); IG# 0.02 K/uL (0.00-0.02); LYMPH ABS # 1.29 K/uL (1.2-3.4); MEAN CELL VOLUME 95.7 fL (80-100); MEAN CORPUSCULAR HEMOGLOBIN 30.9 pg (25-34); MEAN CORPUSCULAR HGB CONC 32.3 g/dl (32-36); MONO % 5.8 %; MONO ABS # 0.44 K/uL (0.11-0.59); NEUT % 75.2 %; NEUT ABS # 5.69 K/uL (1.4-6.5); PLATELET COUNT 121 K/uL (130-400); RED CELL DISTRIBUTION WIDTH CV 18.4 % (11.5-14.5); RED CELL DISTRIBUTION WIDTH SD 64.2 fL (36.4-46.3); WHITE BLOOD COUNT 7.57 K/uL (4.8-10.8)
[2017-10-18 15:02] LABS: INR 1.6 (0.9-1.1)
[2017-10-18 15:21] LABS: ALBUMIN 3.6 gm/dl (3.4-5.0); ALT/SGPT 22 U/L (12-78); AST/SGOT 31 U/L (15-37); BLOOD UREA NITROGEN 15 mg/dl (7-18); CALCIUM 8.4 mg/dl (8.5-10.1); CARBON DIOXIDE 29 mmol/L (21-32); CREATININE 1.26 mg/dl (0.60-1.40); GLUCOSE 70 mg/dl (70-99); POTASSIUM 3.8 mmol/L (3.5-5.1); SODIUM 139 mmol/L (136-145)
[2017-10-18 15:26] LABS: ALKALINE PHOSPHATASE 49 U/L (45-117)
[2017-10-18] MEDS ORDERED: OPTIRAY 320 IV PRN (15:45)
--- NOTE | 2017-10-18 16:17 | DIAGNOSTIC IMAGING REPORT ---
ABD/PELVIS IV CONTRAST ONLY CT DOSE: 1507.31 mGy.cm HISTORY: Pain abd pain, hx pe, low INR TECHNIQUE: Multiaxial CT images of the abdomen and pelvis were performed following the use of intravenous contrast. A dose lowering technique was utilized adhering to the principles of ALARA. COMPARISON STUDY: 08/30/2016 FINDINGS: Several small hepatic cysts. Spleen is uniform. Pancreas is unremarkable. Graft several small left renal cyst. Extrarenal pelves bilaterally. No evidence for hydronephrosis. Nonobstructive bowel pattern. Prostatic enlargement. Bladder is midline. No free fluid within the pelvic cul-de-sac. No evidence for an obstructing urinary tract calculus. IMPRESSION: 1. Several small left renal cyst. 2. Abdomen and pelvis is otherwise negative for acute abnormality. 3. Enlargement of the prostate.. The above report was generated using voice recognition software. It may contain grammatical, syntax or spelling errors. Electronically signed by: Boom Verduzco M.D. 10/18/2017 4:16 PM Dictated Date/Time: 10/18/2017 4:11 PM
--- NOTE | 2017-10-18 16:24 | DIAGNOSTIC IMAGING REPORT ---
CT ANGIOGRAM OF THE CHEST CLINICAL HISTORY: Dyspnea. COMPARISON STUDY: Chest x-ray dated 09/18/2017. Chest CT scans dated 06/20/2017 and 07/03/2013. TECHNIQUE: Following the IV administration of 94 cc of Optiray 320, CT angiogram of the chest was performed from the upper abdomen to the thoracic inlet utilizing the pulmonary embolus protocol. Images are reviewed in the axial, sagittal, and coronal planes. 3-D MIPS images are created and assessed. IV contrast was administered without complication. A dose lowering technique was utilized adhering to the principles of ALARA. The examination is modestly degraded by motion artifact. FINDINGS: Thyroid: Imaged portions of the thyroid gland are normal in size and attenuation. Thoracic aorta: The thoracic aorta is normal in caliber and demonstrates bovine variant arch anatomy. No dissection is seen. Pulmonary vasculature: The pulmonary trunk is normal in caliber. There are no filling defects identified in main, lobar, or segmental pulmonary branches to suggest pulmonary embolus. Heart: The heart is enlarged and without pericardial effusion. Lungs and pleural spaces: Evaluation of lung parenchyma is modestly degraded by motion artifact. Apical scarring is noted. There is no airspace consolidation typical for pneumonia or pleural effusion. Secretions are noted in the trachea. Dependent atelectasis is observed. Mediastinum: There is no mediastinal lymphadenopathy. Juanita: Clear. Axillae: There is no axillary lymphadenopathy. Upper abdomen: Cholecystectomy clips are noted. There is a small hiatal hernia. A 1.8 cm cyst is noted in the left hepatic lobe. Skeletal structures: The skeletal structures are osteopenic. No lytic or blastic bony lesions are seen. Mild degenerative change is noted in the shoulders and thoracic spine. IMPRESSION: 1. There is no evidence of pulmonary embolus in the main, lobar, or segmental pulmonary arteries. 2. There is no airspace consolidation or pleural effusion. 3. Cardiomegaly. 4. Additional findings as above. Electronically signed by: Ceferino Barry M.D. 10/18/2017 4:23 PM Dictated Date/Time: 10/18/2017 4:11 PM
--- NOTE | 2017-10-18 17:26 | DIAGNOSTIC IMAGING REPORT ---
VENOUS DOPPLER LWR EXT BILA HISTORY: Pain. Edema. pain, hx dvt, low INR COMPARISON STUDY: None. FINDINGS: Findings consistent with acute deep venous thrombosis involving the right femoral vein distally as well as proximal popliteal vein. Compressibility is compromise. All remaining venous structures are unremarkable. IMPRESSION: Focal acute deep venous thrombosis involving the proximal right popliteal vein as well as distal right femoral vein The above report was generated using voice recognition software. It may contain grammatical, syntax or spelling errors. Electronically signed by: Boom Verduzco M.D. 10/18/2017 5:25 PM Dictated Date/Time: 10/18/2017 5:24 PM
[2017-10-18] MEDS ORDERED: ENOXAPARIN 1 MG/KG SQ STA (17:34)
[2017-10-18] MEDS ORDERED: ENOXAPARIN 80 MG/0.8 ML SYR SQ STA (17:39)
[2017-10-18] MEDS ORDERED: WARFARIN SOD 5 MG TAB PO ONE ×2 (17:45)
[2017-10-18 18:07] VITALS: BP 146/84; PULSE 64; O2SAT 98
[2017-10-18] MEDS ORDERED: ACETAMINOPHEN 325 MG TAB PO STA (18:14)
== END 2017-10-18 18:37 | disposition home or self-care (01) ==
LOC: C.EDB 14:09
DX: I82.401 Acute embolism and thrombosis of unspecified deep veins of right lower extremity (principal); M79.606 Pain in leg, unspecified; R79.1 Abnormal coagulation profile; I48.91 Unspecified atrial fibrillation; N40.0 Benign prostatic hyperplasia without lower urinary tract symptoms; F41.9 Anxiety disorder, unspecified; F32.9 Major depressive disorder, single episode, unspecified; Z79.01 Long term (current) use of anticoagulants; Z79.899 Other long term (current) drug therapy; Z91.048 Other nonmedicinal substance allergy status; Z88.8 Allergy status to other drugs, medicaments and biological substances

== ENCOUNTER 2017-10-29 13:16 | Emergency (ER) | payer OTHER ==
[~2017-10-29] VITALS: Ht 172.7 cm; Wt 81.9 kg
[2017-10-29 13:30] VITALS: Ht 172.7 cm; Wt 81.9 kg
--- NOTE | 2017-10-29 13:39 | EMERGENCY ROOM VISIT NOTE ---
History Report prepared by Bhupinder: Camden Farris Under the Supervision of: Dr. Jadiel Mast D.O. First contact with patient: 13:31 Chief Complaint: FALL Stated Complaint: FALL - BACK PAIN History of Present Illness The patient is a 77 year old male who presents to the Emergency Room via EMS with complaints of a sudden mechanical fall that occurred prior to arrival today. He states that he fell in his bathroom, and was unable to get himself up after the fall. The patient notes that somebody heard him and came in to help him get up. He states that he lives in [facility]. He says that he did not hit his head on the fall. The patient notes that he was having abdominal pain earlier, but does not have the pain currently. 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 Review of Systems See HPI for pertinent positives & negatives. A total of 10 systems reviewed and were otherwise negative. 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 (4) Bullous pemphigoid (5) COPD (chronic obstructive pulmonary disease) (6) COPD, mild (7) Depression (8) Diarrhea (9) DJD (degenerative joint disease) of cervical spine (10) DVT (deep venous thrombosis) (11) Dyslipidemia (12) Generalized anxiety disorder (13) Generalized osteoarthritis (14) History of hemolytic anemia (15) History of TIA (transient ischemic attack) (16) Internal hemorrhoids (17) Myocardial infarction (18) Near syncope (19) Orthostasis (20) Polycythemia vera (21) Superficial vein thrombosis Surgical Problems: (1) H/O hernia repair (2) History of carpal tunnel surgery (3) Hx of cholecystectomy (4) S/P TURP Family History Cardiac arrest Heart disease Stroke Social History Smoking Status: Never Smoker Alcohol Use: none Drug Use: none Marital Status: Housing Status: lives with significant other Occupation Status: retired Current/Historical Medications Scheduled Citalopram Hydrobromide (Citalopram Hydrobromide), 10 MG PO DAILY Finasteride (Proscar), 5 MG PO DAILY Gabapentin (Neurontin), 100 MG PO TID Omeprazole (Prilosec), 20 MG PO DAILY Ranitidine Hcl (Zantac), 150 MG PO BID Warfarin Sod (Coumadin), 6 MG PO 3XWK Warfarin Sod (Jantoven), 3 MG PO [id number] Scheduled PRN Dicyclomine Hcl (Bentyl), 10 MG PO TID PRN for ABDOMINAL PAIN Lorazepam (Ativan), 1 MG PO TID PRN for Anxiety Tamsulosin Hcl (Flomax), 0.4 MG PO DAILY PRN for PROSTATE Allergies Coded Allergies: Adhesives (Verified Allergy, Mild, PAPER TAPE-MARKED SKIN, 10/29/17) Dapsone (Verified Allergy, Unknown, methemoglobinemia, 10/29/17) Aspirin (Verified Adverse Reaction, Unknown, bleeding, 10/29/17) Warfarin (Verified Adverse Reaction, Unknown, bleeding, 10/29/17) Physical Exam Vital Signs Date Time Temp Pulse Resp B/P (MAP) Pulse Ox O2 Delivery O2 Flow Rate FiO2 10/29/17 16:08 37.2 86 22 124/77 95 10/29/17 15:57 86 22 124/77 10/29/17 13:51 95 Room Air 10/29/17 13:51 70 24 95 10/29/17 13:51 94 Room Air 10/29/17 13:46 74 15 10/29/17 13:41 67 21 10/29/17 13:36 70 24 96 10/29/17 13:31 71 21 95 10/29/17 13:30 37.2 71 19 131/69 96 Room Air 10/29/17 13:29 66 10/29/17 13:23 131/69 Physical Exam GENERAL: Patient is awake, alert, and in no acute distress. Patient is resting comfortably and showing no signs of anxiety EYES: The conjunctivae are clear. The pupils are round and reactive. EARS, NOSE, MOUTH AND THROAT: The nose is without any evidence of any deformity. Mucous membranes are moist tongue is midline NECK: The neck is nontender and supple. RESPIRATORY: Normal respiratory effort is noted there is no evidence of wheezing rhonchi or rales CARDIOVASCULAR: Regular rate and rhythm noted there no murmurs rubs or gallops normal S1 normal S2 GASTROINTESTINAL: The abdomen is soft. Bowel sounds are present in all quadrants. Abdomen is nontender BACK: No midline tenderness or or step-off noted range of motion in flexion extension as well as rotation no signs of muscle spasm noted MUSCULOSKELETAL/EXTREMITIES: There is no evidence of gross deformity full range of motion is noted in the hips and shoulders SKIN: There is pedal edema bilaterally. NEUROLOGIC: Patient is awake alert and oriented x3. Medical Decision & Procedures ER Provider Diagnostic Interpretation: Radiology results as stated below per my review and radiologist interpretation: PELVIS ONE VIEW HISTORY: Pelvic pain. fall COMPARISON: None. FINDINGS: There is no fracture or dislocation. Soft tissues are unremarkable. No radiopaque foreign bodies. Faint chondrocalcinosis within the left hip. Multiple pelvic phleboliths are noted. The sacrum appears intact. IMPRESSION: No fracture or dislocation within the pelvis or hips. Electronically signed by: Dipesh Milner M.D. 10/29/2017 2:03 PM Dictated Date/Time: 10/29/2017 1:59 PM HEAD WITHOUT CONTRAST (CT) CT DOSE: 690.05 mGycm HISTORY: Mental status change EVALUATE ALTERED MENTAL STATUS/WEAKNESS TECHNIQUE: Multiaxial CT images of the head were performed without the use of intravenous contrast. A dose lowering technique was utilized adhering to the principles of ALARA. Comparison: 05/24/2007 Findings: Chronic mucosal thickening of the left mastoid air cells associated with a chronic degree of sclerosis. Right mastoid air cells are well aerated. Remaining sinuses are considered clear. Findings of mild chronic cerebellar as well as cerebral atrophy. Ventricular system is midline. There is no acute intracranial hemorrhage. The calvarium and skull base are intact. The ventricles and sulci are within normal limits. There is no mass, hematoma, midline shift, or acute infarct. Impression: No acute intracranial abnormality. Age-related change. Chronic mucosal thickening left mastoid air cells. The above report was generated using voice recognition software. It may contain grammatical, syntax or spelling errors. Electronically signed by: Boom Verduzco M.D. 10/29/2017 2:21 PM Dictated Date/Time: 10/29/2017 2:20 PM CHEST ONE VIEW PORTABLE CLINICAL HISTORY: EVALUATE ALTERED MENTAL STATUS/WEAKNESS dyspnea COMPARISON STUDY: 09/18/2017 FINDINGS: The bones soft tissues and hemidiaphragms are normal. The cardiomediastinal silhouette is normal. The lungs are clear. The pulmonary vasculature is normal. IMPRESSION: Negative chest. The above report was generated using voice recognition software. It may contain grammatical, syntax or spelling errors. Electronically signed by: Boom Verduzco M.D. 10/29/2017 1:59 PM Dictated Date/Time: 10/29/2017 1:58 PM Laboratory Results 10/29/17 13:30 Red Blood Count 4.42, Mean Corpuscular Volume 93.7, Mean Corpuscular Hemoglobin 29.4, Mean Corpuscular Hemoglobin Concent 31.4, Mean Platelet Volume 10.2, Neutrophils (%) (Auto) 82.5, Lymphocytes (%) (Auto) 10.0, Monocytes (%) (Auto) 6.0, Eosinophils (%) (Auto) 1.0, Basophils (%) (Auto) 0.2, Neutrophils # (Auto) 9.06, Lymphocytes # (Auto) 1.10, Monocytes # (Auto) 0.66, Eosinophils # (Auto) 0.11, Basophils # (Auto) 0.02 10/29/17 13:30 Test 10/29/17 13:30 White Blood Count 10.98 K/uL (4.8-10.8) Red Blood Count 4.42 M/uL (4.7-6.1) Hemoglobin 13.0 g/dL (14.0-18.0) Hematocrit 41.4 % (42-52) Mean Corpuscular Volume 93.7 fL (80-100) Mean Corpuscular Hemoglobin 29.4 pg (25-34) Mean Corpuscular Hemoglobin Concent 31.4 g/dl (32-36) Platelet Count 157 K/uL (130-400) Mean Platelet Volume 10.2 fL (7.4-10.4) Neutrophils (%) (Auto) 82.5 % Lymphocytes (%) (Auto) 10.0 % Monocytes (%) (Auto) 6.0 % Eosinophils (%) (Auto) 1.0 % Basophils (%) (Auto) 0.2 % Neutrophils # (Auto) 9.06 K/uL (1.4-6.5) Lymphocytes # (Auto) 1.10 K/uL (1.2-3.4) Monocytes # (Auto) 0.66 K/uL (0.11-0.59) Eosinophils # (Auto) 0.11 K/uL (0-0.5) Basophils # (Auto) 0.02 K/uL (0-0.2) RDW Standard Deviation 53.0 fL (36.4-46.3) RDW Coefficient of Variation 15.6 % (11.5-14.5) Immature Granulocyte % (Auto) 0.3 % Immature Granulocyte # (Auto) 0.03 K/uL (0.00-0.02) Prothrombin Time 16.5 SECONDS (9.0-12.0) Prothromb Time International Ratio 1.6 (0.9-1.1) Activated Partial Thromboplast Time 32.2 SECONDS (21.0-31.0) Partial Thromboplastin Ratio 1.2 Anion Gap 3.0 mmol/L (3-11) Est Creatinine Clear Calc Drug Dose 54.0 ml/min Estimated GFR () 75.0 Estimated GFR (Non- 64.7 BUN/Creatinine Ratio 15.7 (10-20) Calcium Level 8.5 mg/dl (8.5-10.1) Magnesium Level 2.1 mg/dl (1.8-2.4) Total Bilirubin 0.8 mg/dl (0.2-1) Direct Bilirubin 0.2 mg/dl (0-0.2) Aspartate Amino Transf (AST/SGOT) 19 U/L (15-37) Alanine Aminotransferase (ALT/SGPT) 16 U/L (12-78) Alkaline Phosphatase 54 U/L (45-117) Troponin I < 0.015 ng/ml (0-0.045) Total Protein 7.0 gm/dl (6.4-8.2) Albumin 3.4 gm/dl (3.4-5.0) Thyroid Stimulating Hormone (TSH) 1.550 uIu/ml (0.300-4.500) Laboratory results per my review. ECG Per My Interpretation Indication: other (fall, trauma) Rate (beats per minute): 69 Rhythm: normal sinus Findings: no ectopy, other (no acute ST segment abnormalities) Change: no significant change (from 10/18/17) ED Course 1333: The patient was evaluated in room C1B. A complete history and physical examination were performed. 1450: Upon reevaluation, the patient is resting comfortably. I discussed the results and treatment plan with him. He verbalized agreement of the treatment plan. He will be discharged home. Medical Decision Differential diagnosis: Etiologies such as fracture, dislocation, intra-abdominal, pneumothorax, intrathoracic , intracranial, neurologic, as well as other traumatic pathologies were entertained. Nursing notes reviewed. The patient is a 77-year-old male who presented to the emergency department for an evaluation after fall. The patient complained of some pelvic pain but on my evaluation did not have any significant injury. I discussed patient's laboratory and radiographic studies with him. Testing was obtained because the patient is currently taking anticoagulation. The patient was able to ambulate without assistance. He was encouraged to rest and avoid any strenuous activity. He was also encouraged to follow-up with his primary care physician as soon as possible for further evaluation but return to the emergency department immediately if symptoms change worsen or the need arises. Medication Reconcilliation Current Medication List: was personally reviewed by me Blood Pressure Screening Patient's blood pressure: Normal blood pressure Impression Primary Impression: Accident due to mechanical fall without injury Scribe Attestation The scribe's documentation has been prepared under my direction and personally reviewed by me in its entirety. I confirm that the note above accurately reflects all work, treatment, procedures, and medical decision making performed by me. Departure Information Dispostion Home / Self-Care Referrals Ajith Herman, GracyO. (PCP) Patient Instructions Falls Prevent Home, My [facility] Additional Instructions Call your family doctor to schedule a follow-up appointment. Continue all medications as prescribed. Return to the emergency department immediately symptoms change worsen or the need arises. Problem Qualifiers Primary Impression: Accident due to mechanical fall without injury Encounter type: initial encounter Qualified Codes: W19.XXXA - Unspecified fall, initial encounter
[2017-10-29 13:51] VITALS: O2SAT 95
[2017-10-29 13:58] LABS: BASO % 0.2 %; BASO ABS # 0.02 K/uL (0-0.2); EOS ABS # 0.11 K/uL (0-0.5); HEMATOCRIT 41.4 % (42-52); IG# 0.03 K/uL (0.00-0.02); MEAN CELL VOLUME 93.7 fL (80-100); MEAN CORPUSCULAR HEMOGLOBIN 29.4 pg (25-34); MEAN CORPUSCULAR HGB CONC 31.4 g/dl (32-36); MEAN PLATELET VOLUME 10.2 fL (7.4-10.4); MONO ABS # 0.66 K/uL (0.11-0.59); NEUT % 82.5 %; NEUT ABS # 9.06 K/uL (1.4-6.5); PLATELET COUNT 157 K/uL (130-400); RED CELL DISTRIBUTION WIDTH CV 15.6 % (11.5-14.5); WHITE BLOOD COUNT 10.98 K/uL (4.8-10.8)
--- NOTE | 2017-10-29 14:00 | DIAGNOSTIC IMAGING REPORT ---
CHEST ONE VIEW PORTABLE CLINICAL HISTORY: EVALUATE ALTERED MENTAL STATUS/WEAKNESS dyspnea COMPARISON STUDY: 09/18/2017 FINDINGS: The bones soft tissues and hemidiaphragms are normal. The cardiomediastinal silhouette is normal. The lungs are clear. The pulmonary vasculature is normal. IMPRESSION: Negative chest. The above report was generated using voice recognition software. It may contain grammatical, syntax or spelling errors. Electronically signed by: Boom Verduzco M.D. 10/29/2017 1:59 PM Dictated Date/Time: 10/29/2017 1:58 PM
[2017-10-29 14:01] LABS: INR 1.6 (0.9-1.1); PTT PATIENT 32.2 SECONDS (21.0-31.0)
[2017-10-29 14:02] LABS: ALBUMIN 3.4 gm/dl (3.4-5.0); ALT/SGPT 16 U/L (12-78); AST/SGOT 19 U/L (15-37); BLOOD UREA NITROGEN 17 mg/dl (7-18); CALCIUM 8.5 mg/dl (8.5-10.1); CARBON DIOXIDE 28 mmol/L (21-32); CREATININE 1.09 mg/dl (0.60-1.40); GLUCOSE 87 mg/dl (70-99); POTASSIUM 4.3 mmol/L (3.5-5.1); SODIUM 139 mmol/L (136-145)
--- NOTE | 2017-10-29 14:05 | DIAGNOSTIC IMAGING REPORT ---
PELVIS ONE VIEW HISTORY: Pelvic pain. fall COMPARISON: None. FINDINGS: There is no fracture or dislocation. Soft tissues are unremarkable. No radiopaque foreign bodies. Faint chondrocalcinosis within the left hip. Multiple pelvic phleboliths are noted. The sacrum appears intact. IMPRESSION: No fracture or dislocation within the pelvis or hips. Electronically signed by: Dipesh Milner M.D. 10/29/2017 2:03 PM Dictated Date/Time: 10/29/2017 1:59 PM
[2017-10-29 14:13] LABS: ALKALINE PHOSPHATASE 54 U/L (45-117)
--- NOTE | 2017-10-29 14:23 | DIAGNOSTIC IMAGING REPORT ---
HEAD WITHOUT CONTRAST (CT) CT DOSE: 690.05 mGycm HISTORY: Mental status change EVALUATE ALTERED MENTAL STATUS/WEAKNESS TECHNIQUE: Multiaxial CT images of the head were performed without the use of intravenous contrast. A dose lowering technique was utilized adhering to the principles of ALARA. Comparison: 05/24/2007 Findings: Chronic mucosal thickening of the left mastoid air cells associated with a chronic degree of sclerosis. Right mastoid air cells are well aerated. Remaining sinuses are considered clear. Findings of mild chronic cerebellar as well as cerebral atrophy. Ventricular system is midline. There is no acute intracranial hemorrhage. The calvarium and skull base are intact. The ventricles and sulci are within normal limits. There is no mass, hematoma, midline shift, or acute infarct. Impression: No acute intracranial abnormality. Age-related change. Chronic mucosal thickening left mastoid air cells. The above report was generated using voice recognition software. It may contain grammatical, syntax or spelling errors. Electronically signed by: Boom Verduzco M.D. 10/29/2017 2:21 PM Dictated Date/Time: 10/29/2017 2:20 PM
[2017-10-29] MEDS ORDERED: DICY10CA55 PO (15:16)
[2017-10-29] MEDS ORDERED: WARF3TAB6 PO (15:16)
[2017-10-29] MEDS ORDERED: TAMS0.4C38 PO (15:16)
[2017-10-29] MEDS ORDERED: GABA-112 PO (15:16)
[2017-10-29] MEDS ORDERED: ATV/1 PO (15:16)
[2017-10-29] MEDS ORDERED: RANI150T3 PO (15:16)
[2017-10-29] MEDS ORDERED: CMD3 PO (15:16)
[2017-10-29 16:08] VITALS: BP 124/77; PULSE 86; TEMP 37.2; O2SAT 95
== END 2017-10-29 16:10 | disposition home or self-care (01) ==
LOC: EDBD 13:16 → C.EDC 13:17
DX: R10.2 Pelvic and perineal pain (principal); W19.XXXA Unspecified fall, initial encounter; R60.0 Localized edema; Z79.01 Long term (current) use of anticoagulants; F32.9 Major depressive disorder, single episode, unspecified; N40.1 Benign prostatic hyperplasia with lower urinary tract symptoms; I48.91 Unspecified atrial fibrillation; Z86.718 Personal history of other venous thrombosis and embolism; Z91.048 Other nonmedicinal substance allergy status; Z88.6 Allergy status to analgesic agent; Z88.8 Allergy status to other drugs, medicaments and biological substances